=== PATIENT | female | born 1970 | race Caucasian/White ===

== ENCOUNTER 2019-09-05 10:27 | Observation (INO) | payer OTHER, SELFPAY ==
[2019-09-05] VITALS (11 sets, daily range): BP systolic 123–210; BP diastolic 60–107; PULSE 78–99; RESP 16–20; TEMP 36.1–37; O2SAT 97–100; BMI 30.5
--- NOTE | ~2019-09-05 | US_ITS ---
US right upper quadrant DATE: 09/06/2019 07:56 INDICATION: Right-sided abdominal pain TECHNIQUE: Right sided abdominal pain, nausea and vomiting COMPARISON: Real time imaging of the liver, pancreas, gallbladder, doppler FINDINGS: No hepatic, pancreatic space occupying mass lesion. Normal hepatopedal portal venous flow direction. No gallstones, gallbladder wall thickening or surrounding fluid. Negative sonographic Saleem's sign. The common bile duct measures 4 mm. IMPRESSION: No significant abnormality Reviewed, dictated and finalized at [facility]. Reviewed, dictated and finalized at location [facility]. IMPRESSION: No significant abnormality
--- NOTE | ~2019-09-05 | CT_ITS ---
EXAMINATION: CT abdomen pelvis w con DATE: 09/05/2019 13:16 INDICATION: Right lower quadrant abdominal pain. Nausea and vomiting. TECHNIQUE: Computed tomography (CT) of the abdomen and pelvis was performed with 100 mm Omnipaque 350 intravenous contrast. Automated exposure control and iterative reconstruction technique were employe d. The dose-length product was 560.07 mGy-cm. COMPARISON: None. FINDINGS: The visualized portions of the lung bases demonstrate minimal atelectasis. No pleural effus ion. The heart size is normal. No pericardial effusion. The liver, gallbladder, spleen, pancreas, adr enal glands, and left kidney are normal. There is an 8 mm cyst in right kidney. The bladder is disten ded. There is a 4.3 cm cyst in left ovary. There is diverticulosis of the colon without evidence of d iverticulitis. The appendix is normal. There are no dilated loops of bowel. There are no pathological ly enlarged lymph nodes. There is no free intraperitoneal fluid. There is mild lumbar spondylosis. IMPRESSION: 1. 4.3 cm cyst in left ovary, likely a follicular cyst. Reviewed, dictated and finalized at location [facility].
--- NOTE | 2019-09-05 10:56 | ECG_ITS ---
Measurements Intervals [place] Rate: 78 P: -5 DE: 132 QRS: 38 QRSD: 109 T: 51 QT: 416 QTc: 475 Interpretive Statements SINUS RHYTHM BASELINE WANDER- I, III, V3 NORMAL ECG Electronically Signed On 09-05-2019 14:08:00 CDT by Bg Faulkner D.O.
--- NOTE | 2019-09-05 10:56 | ED.NAVMDI ---
HPI - Nausea/Vomiting/Diarrhea General Chief complaint: Nausea/Vomiting/Diarrhea Stated complaint: vomiting, diarrhea Time Seen by Provider: 09/05/19 10:34 Source: patient Mode of arrival: ambulatory Limitations: no limitations History of Present Illness HPI Narrative: This patient is a 49 year old female who presents for evaluation of nausea, vomiting and abdominal pain. Patient states starting Thursday she developed nausea, vomiting, diarrhea and right lower abdominal pain. She states she felt fine on Thursday and Thursday. This morning at 1 30 am she developed nausea and vomiting again. She also reports epigastric pain that is dull ache that started with her vomiting. She reports this pain is worse with vomiting. She denies cough or shortness of breath. She reports a fever 100 F on Thursday. MD elicited complaint: nausea, vomiting and diarrhea Related Data Home Medications Medication Instructions Recorded Confirmed No Home Medications 09/05/19 09/05/19 Allergies Allergy/AdvReac Type Severity Reaction Status Date / Time quinine Allergy Unknown Verified 09/05/19 10:38 Review of Systems Review of Systems: All systems reviewed & are unremarkable except as noted in HPI and below Constitutional: Constitutional: Reports fever(s) Cardiovascular: Cardiovascular: Reports chest pain and Denies radiating jaw, neck or arm pain Respiratory: Respiratory: Denies cough, Denies dyspnea and Denies wheezing Gastrointestinal: Gastrointestinal: Reports abdominal pain, Reports diarrhea, Reports nausea and Reports vomiting Endocrine: Endocrine: Denies polydipsia and Denies polyuria PMFSH Past Medical History Medical History (Updated 09/05/19 @ 18:30 by Zenaida Narayanan MD) Diabetes mellitus Surgical History Surgical History (Updated 09/05/19 @ 10:58 by Zenaida Narayanan MD) H/O section Social History Social History Gender identity (if verbalized by the patient): Female Exam Narrative: Exam Narrative: GENERAL: Well-appearing, well-nourished, and in no acute distress. HEAD: Normocephalic, atraumatic EYES: PERRLA and EOMI, conjunctiva clear without discharge THROAT:Mucous membranes moist, Oropharynx normal without erythema, exudate, peritonsillar swelling or fluctuance NECK: Supple, without lymphadenopathy or mass RESPIRATORY: No respiratory distress, Airway patent, Respirations non-labored, Clear to auscultation without rales, rhonchi or wheeze HEART: Regular rate and rhythm. No murmur heard. Normal peripheral pulses. ABDOMEN: Soft, epigastric, RLQ tenderness, nondistended, normal active bowel sounds. No masses. No rebound or guarding, No organomegaly. EXTREMITIES: No edema, normal strength with full range of motion. SKIN: Warm, dry, normal color without rash NEURO: Alert and oriented x3. CN 2-12 grossly intact. No focal deficits. PSYCH: Normal mood and affect. Course Reevaluation(s) Reevaluation #1: PAtient reports she still has pain and she started vomiting again. She will be admitted for intractable nausea and vomiting. she has uncontrolled hypertension. She reports history of hypertension as well but she does not take her medications. Date: 09/05/19 Time: 16:15 Consultations Consultation #1: I discussed case with Elisa Olivo who accepts patient to IM U patient is not DKA. Date: 09/05/19 Time: 16:15 Vital Signs Vital signs: Vital Signs Temperature 97.9 F 09/05/19 10:34 Pulse Rate 83 09/05/19 10:34 Respiratory Rate 18 09/05/19 10:34 Blood Pressure 210/101 H 09/05/19 10:34 Pulse Oximetry 100 09/05/19 10:34 Temperature 97.9 F 09/05/19 10:34 Pulse Rate 78 09/05/19 17:54 Respiratory Rate 20 09/05/19 17:54 Blood Pressure 130/72 09/05/19 17:54 Pulse Oximetry 99 09/05/19 17:54 MDM - Nausea/Vomiting/Diarrhea Lab Data Attestation: I reviewed the patient's lab results. Result diagrams: 09/05/19 10:43 09/05/19 10:43
[2019-09-05 10:57] LABS: Basophils Absolute Auto 0.1 K/mm3 (0.0-0.1); Basophils Percent Auto 0.5 % (0.2-1.2); Hematocrit 47.2 % (37.0-47.0); Hemoglobin 15.8 g/dL (12.0-15.0); Immature Granulocyte Absolute 0.05 K/mm3 (0.00-0.031); Immature Granulocyte Percent A 0.5 % (0-0.5); Lymphocytes Percent Auto 7.4 % (18.3-44.2); Mean Corpuscular HGB Conc 33.5 g/dl (32-36); Mean Corpuscular Hemoglobin 30.4 pg (26-34); Mean Corpuscular Volume 90.9 fl (80-100); Mean Platelet Volume 11.3 fl (7.4-10.4); Monocytes Absolute Auto 0.2 K/mm3 (0.1-0.6); Monocytes Percent Auto 1.4 % (2.6-8.5); Neutrophils Absolute Auto 9.8 K/mm3 (1.3-6.7); Neutrophils Percent Auto 90.2 % (45.5-73.1); Platelet Count Result 224 k/mm3 (150-375); Red Blood Count 5.19 M/mm3 (4.2-5.4); Red Cell Distribution Width 12.5 % (11.5-14.5); White Blood Count 10.9 K/mm3 (4.5-10.0)
[2019-09-05 11:05] LABS: Glucose Point of Care 313 (65-105)
[2019-09-05 11:14] LABS: Alanine Aminotransferase 28 U/L (4-35); Albumin Level 4.3 g/dL (3.5-5.1); Alkaline Phosphatase 128 U/L (38-126); Aspartate Amino Transferase 28 U/L (14-36); Bilirubin,Total 0.5 mg/dL (0.2-1.3); Blood Urea Nitrogen 9 mg/dL (7-17); Calcium 8.9 mg/dL (8.4-10.2); Carbon Dioxide 24 mmol/L (22-30); Chloride 100 mmol/L (98-107); Estimated CRCL calculation 92 ml/min; Estimated Glomerular Filt Rate > 60; Glucose 338 mg/dL (65-105); Lipase 70 U/L (23-300); Potassium 3.7 mmol/L (3.4-5.0); Sodium 134 mmol/L (137-145)
[2019-09-05] MEDS: LACTATED RINGERS 1,000 ML 999 ML IV CONT (11:26)
[2019-09-05] MEDS: SODIUM CHLORIDE 0.9% IV 1,000 ML 999 ML IV CONT (11:26)
[2019-09-05] MEDS: PANTOPRAZOLE SODIUM IV 40 MG VIAL IV PUSH (11:27)
[2019-09-05] MEDS: ONDANSETRON INJ 4 MG/2 ML VIAL IV PUSH ×2 (11:27→17:11)
[2019-09-05 11:28] LABS: Troponin I < 0.012 ng/mL (0.000-0.034)
[2019-09-05 12:25] LABS: Add Urine Microscopic? YES; Appearance Urine Clear (Clear); Bilirubin Urine Negative (Negative); Blood Urine 1+ (Negative); Color Urine Yellow (Yellow); Glucose Urine UA 3+ mg/dL (Negative); Ketones Urine 1+ mg/dL (Negative); Leukocyte Esterase Ur Negative LEU/UL (Negative); Mucus Urine Rare /lpf; Nitrate Urine Negative (Negative); Protein Urine 2+ mg/dL (Negative); Squamous Epithelial Cell Urine Rare /hpf (Few); Urobilinogen Urine Negative mg/dL (<2.0); WBC Urine 0-3 /hpf
[2019-09-05 12:42] LABS: Specific Grav Ur 1.033 (1.001-1.035)
[2019-09-05] MEDS: cloNIDine HCL 0.1 MG TABLET 0.2 MG PO (13:46)
[2019-09-05] MEDS: BELLADONNA ALK/PHENOB ELIX 10 ML, MAG HYDROX/ALUMINUM HYD/SIMETH 30 ML, LIDOCAINE HCL 2... PO (15:22)
[2019-09-05] MEDS: MORPHINE SULFATE 4 MG/ML INJ IV PUSH (17:10)
[2019-09-05] MEDS: hydrALAZINE HCL 20 MG/ML VIAL 10 MG IV PUSH (17:11)
--- NOTE | 2019-09-05 18:28 | ADMGEN ---
This patient, Vangie King, was admitted to IMU Room 201-01. Patient/family oriented to hospital policies and general routines including ID bracelet, bed and alarms, visiting hours, pain management, procedures, bathroom and other care routines, personal items, smoking policy, room service/diet, and visiting hours. Valuables list has been completed. Information on how to activate the Rapid Response Team has been discussed. Patient/Family are encouraged to report perceived risks to care and to ask questions if they do not understand what they are told or what they should do.
[2019-09-05 18:34] LABS: Glucose Point of Care 295 (65-105)
--- NOTE | 2019-09-05 19:46 | PM.IMHP ---
H&P: HPI History of Present Illness Chief complaint: intractable n/v/epigastric abdominal pain/HTN Narrative: This is a 49 year old Diabetic female who presented to the hospital with a complaint of waking up this morning around 1:30 am with nausea and vomiting. She developed epigastric discomfort after multiple episodes of vomiting and also had diarrhea. She relates that her symptoms started Thursday night about 1-2 hours after she ate chicken salad. She began to have nausea, vomiting, diarrhea and RLQ abdominal pain. She had multiple episodes of vomiting Darrin night. 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 Her last meal was yesterday evening around 5 pm. She has had associated fever and dizziness but denies any other significant symptoms. She has no previous history of GI illnesses but does admit that she does not take any home medications for her diabetes or HTN. She has not been on any antibiotics recently. She has never had a colonoscopy. The patient was [facility] and was treated with multiple doses of zofran for her nausea and vomiting. The patient was admitted to the hospital for intractable nausea, vomiting and epigastric pain. On my encounter with the [facility] she is asymptomatic and has no complaints. She is asking for something to drink. ER provider has consulted GI, Dr. Weems. Review of Systems Review of Systems: All systems reviewed & are unremarkable except as noted in HPI and below PMFSH Past Medical History Medical History (Updated 09/06/19 @ 04:03 by Douglas Feliciano MD) Diabetes mellitus HTN (hypertension) with goal to be determined Surgical History Surgical History H/O section Social History Social History Years smoked: 34 Smoking status: Light tobacco smoker Tobacco type: cigarettes Alcohol intake: current Drinks per week: 2 Substance use: never Substance use type: does not use Gender identity (if verbalized by the patient): Female Spiritual care concerns: No Meds Home Medications and Allergies Home Medications Medication Instructions Recorded Confirmed Type No Home Medications 09/05/19 09/05/19 History Allergies Allergy/AdvReac Type Severity Reaction Status Date / Time quinine Allergy Unknown Verified 09/05/19 10:38 Vital Signs Vital Signs - 24 hr 09/05/19 10:34 09/05/19 12:08 09/05/19 12:39 Temperature 36.6 C Pulse Rate 83 87 99 Respiratory Rate 18 18 Blood Pressure 210/101 H 195/97 H 191/96 H Pulse Oximetry 100 99 09/05/19 13:47 09/05/19 15:22 09/05/19 17:13 Temperature Pulse Rate 89 85 90 Respiratory Rate 20 20 20 Blood Pressure 206/107 H 191/100 H 187/103 H Pulse Oximetry 100 99 99 09/05/19 17:54 09/05/19 19:10 Temperature 37.0 C Pulse Rate 78 94 Respiratory Rate 20 18 Blood Pressure 130/72 134/65 Pulse Oximetry 99 100 Exam Const: General: cooperative, no acute distress, alert and awake Nutritional Appearance: well nourished Orientation/consciousness: patient oriented x3 HENMT: Head: normal to inspection General nose exam: Normal external nose present Face and sinus: normal facial exam Mouth: Yes Normal oral and palatal mucosa present and Yes oropharynx normal Eyes: Pupils: Equal, round and reactive pupils present EOM: EOMs intact bilaterally Neck: Neck: supple and no JVD Thyroid: thyroid normal Lymphatic: lymphadenopathy not noted Resp: Effort & Inspection: normal respiratory effort Auscultation: clear to auscultation bilaterally Cardio: Rate: regular rate Rhythm: regular rhythm Heart sounds: no murmurs GI: Inspection: normal to inspection and non-distended GI Palp: Yes abdominal tenderness (Mild epigastric/RUQ tenderness w/ palpation+ ) Auscultation: Hypoactive bowel sounds present Rectal
[2019-09-05 20:46] LABS: Glucose Point of Care 267 (65-105)
[2019-09-05] MEDS: INSULIN ASPART (*BKC) 100 UNITS/ML SUB-Q (21:24)
[2019-09-05 23:54] LABS: Glucose Point of Care 253 (65-105)
[2019-09-06] VITALS (12 sets, daily range): BP systolic 118–155; BP diastolic 74–89; PULSE 70–85; RESP 16–20; TEMP 36.5–37.1; O2SAT 96–100
[2019-09-06 04:48] LABS: Basophils Percent Auto 0.2 % (0.2-1.2); Eosinophils Percent Auto 0.1 % (0-4.4); Hematocrit 42.3 % (37.0-47.0); Hemoglobin 14.4 g/dL (12.0-15.0); Immature Granulocyte Absolute 0.07 K/mm3 (0.00-0.031); Immature Granulocyte Percent A 0.5 % (0-0.5); Lymphocytes Absolute Auto 2.59 K/mm3 (0.9-3.2); Lymphocytes Percent Auto 17.6 % (18.3-44.2); Mean Corpuscular Hemoglobin 30.8 pg (26-34); Mean Corpuscular Volume 90.6 fl (80-100); Mean Platelet Volume 11.1 fl (7.4-10.4); Monocytes Absolute Auto 1.2 K/mm3 (0.1-0.6); Monocytes Percent Auto 8.2 % (2.6-8.5); Neutrophils Absolute Auto 10.8 K/mm3 (1.3-6.7); Neutrophils Percent Auto 73.4 % (45.5-73.1); Platelet Count Result 230 k/mm3 (150-375); Red Blood Count 4.67 M/mm3 (4.2-5.4); Red Cell Distribution Width 12.4 % (11.5-14.5); White Blood Count 14.7 K/mm3 (4.5-10.0)
[2019-09-06 05:00] LABS: Alanine Aminotransferase 21 U/L (4-35); Albumin Level 3.6 g/dL (3.5-5.1); Alkaline Phosphatase 89 U/L (38-126); Aspartate Amino Transferase 21 U/L (14-36); Bilirubin,Total 0.6 mg/dL (0.2-1.3); Blood Urea Nitrogen 16 mg/dL (7-17); Calcium 8.6 mg/dL (8.4-10.2); Carbon Dioxide 27 mmol/L (22-30); Chloride 103 mmol/L (98-107); Estimated CRCL calculation 70 ml/min; Estimated Glomerular Filt Rate > 60; Glucose 125 mg/dL (65-105); Lipase 107 U/L (23-300); Potassium 3.2 mmol/L (3.4-5.0); Sodium 137 mmol/L (137-145)
--- NOTE | 2019-09-06 08:26 | WPDGICN ---
Assessment and Plan Assessment and plan (1) Epigastric abdominal pain: Code(s): R10.13 - Epigastric pain Status: Acute Assessment and Plan: Epigastric pain resolved this morning. Appears to be related to her nausea vomiting. Plan is for acid suppression. Control of diabetes and hypertension advised. (2) Nausea & vomiting: Code(s): R11.2 - Nausea with vomiting, unspecified Status: Acute Assessment and Plan: Nausea and vomiting resolved this morning. She had 2 brief episodes over the last 4 days. I suspect this is related to poor control of blood pressure and poor control of diabetes mellitus with elevated glucose levels. Plan is to treat with Pepcid advance to bland diabetic diet is advised. EGD will be suggested if symptoms continue to recur. This can be performed electively as an outpatient (3) Nonadherence to medication: Code(s): Z91.14 - Patient's other noncompliance with medication regimen Status: Acute (4) Hypertension, uncontrolled: Code(s): I10 - Essential (primary) hypertension Status: Chronic (5) Diabetes mellitus: Code(s): E11.9 - Type 2 diabetes mellitus without complications Status: Acute GI Consult Note Consult date/time: 09/06/19 08:26 HPI: Vangie King is a 49 year old female Seen in evaluation at the request of the hospitalist service. Patient has an underlying history of diabetes and hypertension however is noncompliant with medication regime. She states she was in her usual state of health on Thursday in the afternoon developed nausea vomiting some abdominal pain. This improved and had no difficulties on Thursday or Thursday. after going to sleep on Thursday evening middle of the night last evening she developed vomiting once again associated with midepigastric pain. she present to the emergency room was given antiemetic agents with prompt improvement of this discomfort. In the emergency room she was found to be quite hypertensive with glucose greater than 300. This morning she has no discomfort is no longer nauseated no longer vomiting no abdominal pain. Her glucose level and high blood pressure is under better control. Review of Systems Review of Systems: All systems reviewed & are unremarkable except as noted in HPI and below PMFSH Past Medical History Medical History Diabetes mellitus HTN (hypertension) with goal to be determined Surgical History Surgical History H/O section Family History Family History Sibling Diabetes mellitus Social History Social History Years smoked: 34 Smoking status: Light tobacco smoker Tobacco type: cigarettes Alcohol intake: current Drinks per week: 2 Substance use: never Substance use type: does not use Gender identity (if verbalized by the patient): Female Spiritual care concerns: No Meds Home Medications and Allergies Home Medications Medication Instructions Recorded Confirmed Type No Home Medications 09/05/19 09/05/19 History Allergies Allergy/AdvReac Type Severity Reaction Status Date / Time quinine Allergy Unknown Verified 09/05/19 10:38 Vital Signs Vital Signs - 24 hr 09/05/19 10:34 09/05/19 12:08 09/05/19 12:39 Temperature 97.9 F Pulse Rate 83 87 99 Respiratory Rate 18 18 Blood Pressure 210/101 H 195/97 H 191/96 H Pulse Oximetry 100 99 09/05/19 13:47 09/05/19 15:22 09/05/19 17:13 Temperature Pulse Rate 89 85 90 Respiratory Rate 20 20 20 Blood Pressure 206/107 H 191/100 H 187/103 H Pulse Oximetry 100 99 99 09/05/19 17:54 09/05/19 19:10 09/05/19 20:00 Temperature 98.6 F Pulse Rate 78 94 94 Respiratory Rate 20 18 Blood Pressure 130/72 134/65 Pulse Oximetry 99 100 09/05/19 22:00
[2019-09-06 08:41] LABS: Glucose Point of Care 158 (65-105)
[2019-09-06 09:42] LABS: Hemoglobin A1C 9.2 % (<5.7)
[2019-09-06] MEDS: POTASSIUM CHLORIDE 20 MEQ PACKET (FOR LIQUID) 40 MEQ PO (10:20)
[2019-09-06] MEDS: FAMOTIDINE 20 MG TABLET PO ×2 (10:21→20:36)
[2019-09-06 11:30] LABS: Glucose Point of Care 238 (65-105)
--- NOTE | 2019-09-06 12:27 | PM.IMPN ---
Progress Note: A&P Assessment and Plan (1) Epigastric abdominal pain: Code(s): R10.13 - Epigastric pain Status: Acute Assessment and Plan: Improved. Etiology is unclear but gastroparesis, gastritis, or GERD is considered. CT a/p was unremarkable for etiology of symptoms. RUQ US shows no acute abnormalities. Lipase 107. She tolerated full liquids this morning Dr. Weems has been consulted and recommendations are appreciated. Continue Pepcid Advance to bland diet. Will downgrade to medical floor and continue to monitor (2) Intractable vomiting with nausea: Code(s): R11.2 - Nausea with vomiting, unspecified Status: Resolved Assessment and Plan: Improved. Slight nausea this morning but no vomiting. Continue antiemetics as needed Care as above (3) Hyperglycemia due to diabetes mellitus: Code(s): E11.65 - Type 2 diabetes mellitus with hyperglycemia Status: Acute Assessment and Plan: She has not been compliant with her oral hypoglycemics, and she has not taken any medications in approximately 1 year. A1c today was 9.2. No evidence for ketoacidosis. Uncontrolled hyperglycemia may be contributing to N/V. Continue accuchecks, SSI Coverage, and hypoglycemic protocol. Importance of medication compliance was discussed. Will plan to discharge with metformin 500 mg BID with review and uptitration by PCP. Will hold on Januvia as she has never taken this and will need to monitor blood sugars at home. (4) Hypokalemia: Code(s): E87.6 - Hypokalemia Status: Acute Assessment and Plan: Potassium mildly low today, likely secondary to vomiting and diarrhea. Mag is WNL. Replace potassium Continue to monitor closely and replace as needed. (5) Hypertension, uncontrolled: Code(s): I10 - Essential (primary) hypertension Status: Chronic Assessment and Plan: She has been noncompliant with lisinopril and hasn't taken in over 1 year. BP as high as 210/101 at presentation improved following clonidine and hydralazine and has been stable today. Restart lisinopril 5 mg Continue to monitor BP closely. (6) Nonadherence to medication: Code(s): Z91.14 - Patient's other noncompliance with medication regimen Status: Acute Assessment and Plan: She has not followed up with her PCP or taken her medications in >1 year. She did not identify any barriers to obtaining her medication and states she is able to afford her medicines. She doesn't really know why she stopped. I spoke with PCP office to obtain most medication list We discussed in detail the importance of taking her medications as prescribed, which she seemed to understand and be agreeable to. She will need to re-establish care with her PCP. (7) Tobacco dependence: Code(s): F17.200 - Nicotine dependence, unspecified, uncomplicated Status: Acute Assessment and Plan: Continue to encourage smoking cessation. She declined a nicotine patch at this time. Subjective Date/time seen: 09/06/19 12:27 Interval history: Date of service: 09/06/2019 She reports she is feeling better now. Her epigastric pain has improved. She felt a little nauseous this morning but has not had any further episodes of vomiting. She has not had anymore episodes of diarrhea. She has been passing gas and belching today but has not had a BM. She denies headaches, confusion, dizziness, lightheadedness, weakness, SOB, cough, chest pain, fever, or chills. Review of Systems Review of Systems: Narrative: A 12 point review of systems was reviewed with pertinent positives and negatives as per HPI. Exam Narrative: Exam Narrative: Ms. King is examined alone today. She is a well nourished 49 year old female who is lying supine in bed. She appears comfortable and is in NARD. HR 85, BP 118/74, RR 18, T 98.0, 97% on room air Neuro: awake, alert and oriented x4, speech cl
[2019-09-06] MEDS: INSULIN ASPART (*BKC) 100 UNITS/ML SUB-Q ×2 (13:17)
[2019-09-06 16:40] LABS: Glucose Point of Care 151 (65-105)
--- NOTE | 2019-09-06 17:07 | PCDIET ---
Nutrition Consult Complete: Pt current nutrition is DBCC. Nutrition recommendation: Agree Last recorded weight is 74.2 kg. Labs Reviewed:A1c 9.2 Additional Notes: Pt with uncontrolled DM. On an DBCC diet. PO intake at 100%. Still c/o GI pain today. Pt follows diabetic plan at home she states. We reviewed carbs and protein sources and focusing on having protein at all meals with up to 45g of carbs at each meals. Discussed my plate method of meal planning with DM to focus on protein and non starchy veggies. Handouts with meal plans provided. We will follow every seven days.
--- NOTE | 2019-09-06 17:30 | PC.NURSE ---
This patient, Vangie King, was received from U on 09/06/19 at 1730. Personal belongings list checked and signed. Patient/family oriented to unit policies and routines
--- NOTE | 2019-09-06 17:30 | PC.NURSE ---
Transferred pt to room 257 via bed as ordered- med/surg-belongings with pt- report given to Douglas LAWSON-
[2019-09-06] MEDS: ACETAMINOPHEN 325 MG TABLET 650 MG PO (20:36)
[2019-09-07] VITALS: BP 155/83; PULSE 66; RESP 20; TEMP 36.6; O2SAT 98
[2019-09-07 00:03] LABS: Glucose Point of Care 262 (65-105)
[2019-09-07 04:00] VITALS: BP 153/84; PULSE 63; RESP 20; TEMP 36.4; O2SAT 98
[2019-09-07 05:13] LABS: Hematocrit 42.4 % (37.0-47.0); Hemoglobin 14.3 g/dL (12.0-15.0); Mean Corpuscular HGB Conc 33.7 g/dl (32-36); Mean Platelet Volume 10.9 fl (7.4-10.4); Platelet Count Result 200 k/mm3 (150-375); Red Blood Count 4.61 M/mm3 (4.2-5.4); Red Cell Distribution Width 12.5 % (11.5-14.5); White Blood Count 7.8 K/mm3 (4.5-10.0)
[2019-09-07 05:34] LABS: Blood Urea Nitrogen 14 mg/dL (7-17); Calcium 8.2 mg/dL (8.4-10.2); Carbon Dioxide 26 mmol/L (22-30); Chloride 103 mmol/L (98-107); Estimated CRCL calculation 91 ml/min; Estimated Glomerular Filt Rate > 60; Glucose 194 mg/dL (65-105); Potassium 3.8 mmol/L (3.4-5.0); Sodium 134 mmol/L (137-145)
[2019-09-07 07:52] LABS: Glucose Point of Care 188 (65-105)
[2019-09-07] MEDS: FAMOTIDINE 20 MG TABLET PO (08:51)
--- NOTE | 2019-09-07 09:45 | WPDGIPROGNO ---
Progress Note: A&P Additional Plan Patient denies any ongoing nausea. Tolerating diet. No additional abdominal pain reported. Physical exam reveals patient to be alert. Vital signs stable. Lungs are clear. Heart without murmur. Abdomen bowel sounds are present soft nontender with no organomegaly. Impression 1. Resolved abdominal pain and nausea. Likely related to poor control of diabetes and hypertension. No additional GI with GI workup unless symptoms recur Subjective Date/time seen: 09/07/19 09:45 Objective Data Vital Signs Vital Signs: Vital Signs - 24 hr 09/06/19 10:00 09/06/19 11:33 09/06/19 12:00 Temperature 98.8 F Pulse Rate 70 77 71 Respiratory Rate 16 Blood Pressure 135/80 Pulse Oximetry 99 09/06/19 14:00 09/06/19 16:00 09/06/19 20:00 Temperature 98.6 F 98.1 F Pulse Rate 70 73 71 Respiratory Rate 18 20 Blood Pressure 148/87 H 155/89 H Pulse Oximetry 99 96 09/07/19 00:00 09/07/19 04:00 Temperature 98 F 97.5 F L Pulse Rate 66 63 Respiratory Rate 20 20 Blood Pressure 155/83 H 153/84 H Pulse Oximetry 98 98 Intake/Output Intake/Output: Intake & Output 09/04/19 09/05/19 09/06/19 09/07/19 23:59 23:59 23:59 23:59 Intake Total 1999 640 630 Output Total 200 Balance 1999 440 630 Meds/Results Medications: Active Medications Generic Name Dose Route Start Last Admin Trade Name Freq PRN Reason Stop Dose Admin Acetaminophen 650 mg 09/06/19 18:53 09/06/19 20:36 Tylenol Tablet PO 650 mg Q6H PRN Administration Mild Pain (1-3) or Fever Dextrose 12.5 gm 09/05/19 19:53 Dextrose 50% Syringe IV PUSH PRN PRN Hypoglycemia Protocol Famotidine 20 mg 09/06/19 09:00 09/07/19 08:51 Pepcid PO 20 mg Q12HR DANK Administration Glucagon 1 mg 09/05/19 19:53 Glucagon For Inj IM PRN PRN Hypoglycemia Protocol Hydralazine HCl 10 mg 09/05/19 16:36 Apresoline Hcl Inj IV PUSH Q8H PRN Blood Pressure - High Dextrose 1,000 mls @ 100 mls/hr 09/05/19 19:53 Dextrose 5% 1,000 Ml IVPB PRN PRN Hypoglycemia Protocol Insulin Aspart 2 - 5 units 09/06/19 17:00 09/07/19 07:56 Novolog SUB-Q Not Given ACINSULIN DANK Protocol Morphine Sulfate 4 mg 09/05/19 16:31 Morphine Sulfate Inj IV PUSH Q2H PRN Pain Rated 7-10 Ondansetron HCl 4 mg 09/05/19 16:31 Zofran Inj IV PUSH Q4H PRN Nausea Radiology Results: ITS Impressions Abdomen/Pelvis CT 09/05/19 13:19 IMPRESSION: 1. 4.3 cm cyst in left ovary, likely a follicular cyst. Upper Quadrant Ultrasound 09/06/19 08:05 IMPRESSION: No significant abnormality Labs Labs: Laboratory Results - last 24 hr 09/06/19 09/06/19 09/06/19 11:28 16:38 20:50 WBC RBC Hgb Hct MCV MCH MCHC RDW Plt Count MPV Sodium Potassium Chloride Carbon Dioxide BUN Creatinine Estim Creat Clear Calc Estimated GFR Glucose POC Capillary Glucose 238 H 151 H 262 H Calcium 09/07/19 09/07/19 09/07/19 05:01 05:01 07:48 WBC 7.8 RBC 4.61 Hgb 14.3 Hct 42.4 MCV 92.0 MCH 31.0 MCHC 33.7 RDW 12.5 Plt Count 200 MPV 10.9 H Sodium 134 L Potassium 3.8 Chloride 103 Carbon Dioxide 26 BUN 14 Creatinine 0.60 L Estim Creat Clear Calc 91 Estimated GFR > 60 Glucose 194 H POC Capillary Glucose 188 H Calcium 8.2 L
[2019-09-07 10:00] VITALS: BP 145/77; PULSE 72; RESP 14; TEMP 36.4; O2SAT 99
--- NOTE | 2019-09-07 11:12 | PM.DS ---
DS: Admitting Diagnosis Admitting Diagnosis Admitting Diagnosis: Epigastric pain DS: Discharge Diagnosis Discharge Diagnosis (1) Epigastric abdominal pain: Code(s): R10.13 - Epigastric pain Status: Acute Assessment and Plan: Improved. Etiology is unclear but gastroparesis, gastritis, or GERD was considered. CT a/p was unremarkable for etiology of symptoms. RUQ US showed no acute abnormalities. Lipase was WNL. She was able to advance to a bland diet without any issues. She was seen in consultation by gastroenterology. She will begin acid suppression therapy with Pepcid daily and may follow-up for outpatient elective EGD with Dr. Weems if symptoms persist. Improved diabetic control was discussed and believe this will help her symptoms. We discussed continuing a bland diet and advancing as tolerated. (2) Intractable vomiting with nausea: Code(s): R11.2 - Nausea with vomiting, unspecified Status: Resolved Assessment and Plan: Nausea and vomiting resolved, likely secondary to above. (3) Hyperglycemia due to diabetes mellitus: Code(s): E11.65 - Type 2 diabetes mellitus with hyperglycemia Status: Acute Assessment and Plan: She has not been compliant with her oral hypoglycemics, and she has not taken any medications in >1 year. Current A1c was 9.2 (09/06/2019). There was no evidence for ketoacidosis. Uncontrolled hyperglycemia may have been contributing to N/V. Glucose was monitored closely and she was covered with sliding scale insulin. She had previously been on metformin that she stopped taking, but she did tolerate this medication well. She had been prescribed Januvia but has never taken this medication. We will start her on metformin 500 mg b.i.d. with review and uptitration by PCP. Will hold on Januvia as she has never taken this. Recommended that she monitor her blood sugars ACHS at home. She was given a prescription for glucometer and test strips. (4) Hypokalemia: Code(s): E87.6 - Hypokalemia Status: Acute Assessment and Plan: Potassium was mildly low, likely secondary to vomiting and diarrhea. Mag was WNL. Potassium was replaced monitored. Levels stabilized. (5) Hypertension, uncontrolled: Code(s): I10 - Essential (primary) hypertension Status: Chronic Assessment and Plan: She had not taken her antihypertensives in over 1 year. BP as high as 210/101 at presentation improved following clonidine and hydralazine in the ED. Blood sugars had improved following. She was restarted on lisinopril 5 mg daily. (6) Nonadherence to medication: Code(s): Z91.14 - Patient's other noncompliance with medication regimen Status: Acute Assessment and Plan: She has not followed up with her PCP or taken her medications in >1 year. She did not identify any barriers to obtaining her medication and states she is able to afford her medicines. She doesn't really know why she stopped. I spoke with her PCP office on 09/05/2021 obtain a recent medication list. We have restarted most of her medications and I reiterated to her the importance of compliance to these medications. She seems motivated to begin taking her medications and follow-up. She will need to reestablish care with her PCP and will be calling for an appointment. (7) Tobacco dependence: Code(s): F17.200 - Nicotine dependence, unspecified, uncomplicated Status: Acute Assessment and Plan: I counseled her on smoking cessation for 6 minutes. She smokes 4-5 cigarettes per day, however she states that she is interested in quitting smoking, especially since she has not smoked in several days while she has been hospitalized and wants to try to quit cold turkey. She will follow-up with her PCP if she needs any assistance. She declined a nicotine patch during her stay. DS: Summary Hospital Course Reason for hospitalization: Nausea/v
[2019-09-07] MEDS: ATORVASTATIN 10 MG TABLET PO (11:16)
[2019-09-07] MEDS: ASPIRIN 81 MG ENTERIC TABLET PO (11:16)
[2019-09-07] MEDS: lisinopriL 5 MG TABLET PO (11:16)
[2019-09-07 11:44] LABS: Glucose Point of Care 245 (65-105)
[2019-09-07] MEDS: INSULIN ASPART (*BKC) 100 UNITS/ML SUB-Q (11:56)
== END 2019-09-07 12:34 | disposition home or self-care (01) ==
LOC: ANHED 16:33 → ANHIMU 17:39 → ANH2MED 09-06 18:12 → ANHIMU 09-09 13:49
PROVIDERS: Physician Assistant; Admitting Provider Internal Medicine; Emergency Provider General Practice; PCP Registered Nurse; Visit Provider Internal Medicine
DX: R10.13 Epigastric pain (principal); E11.65 Type 2 diabetes mellitus with hyperglycemia; E87.6 Hypokalemia; I10 Essential (primary) hypertension; F17.210 Nicotine dependence, cigarettes, uncomplicated; N83.202 Unspecified ovarian cyst, left side; Z91.14 Patient's other noncompliance with medication regimen
CPT/HCPCS: 36415; 74177; 76705; 80048; 80053; 81001; 81025; 83036; 83690; 83735; 84484; 85025; 85027; 93005; 96361; 96374; 96375; 96376; 99285; A9270; C9113; G0378; J0360; J1815; J2270; J2405; J7030; J7120; Q9967

== ENCOUNTER 2021-09-25 12:38 | Emergency (ER) | payer OTHER, SELFPAY ==
[2021-09-25 12:47] VITALS: BP 117/76; PULSE 66; RESP 16; TEMP 36.3; O2SAT 100
--- NOTE | 2021-09-25 12:53 | ED.URI ---
HPI - URI/Sore Throat General Chief Complaint: Upper Respiratory Infection Stated Complaint: Cough, fever, chills Time Seen by Provider: 09/25/21 12:53 Source: patient and RN notes reviewed Mode of arrival: ambulatory Limitations: no limitations History of Present Illness HPI Narrative: 51 y/o female presented for c/o sinus pressure and congestion for 4 days, started with dry cough yesterday. Cough worse at night. Endorses associated fatigue, body aches, and headache. States symptoms are the same as when she had covid 2 years ago. Not taking anything for symptoms. Has taken 2 negative covid tests, last one yesterday. Denies sick contacts. Denies chest pain, shortness of breath, wheezing or fever. MD elicited complaint: cough Related Data Home Medications Medication Instructions Recorded Confirmed atenolol 50 mg-chlorthalidone 25 1 tablet DAILY 09/25/21 09/25/21 mg tablet Allergies Allergy/AdvReac Type Severity Reaction Status Date / Time quinine Allergy Unknown Verified 09/25/21 12:55 Review of Systems Review of Systems: CONSTITUTIONAL: Endorses malaise, chills EYES: Denies visual changes, redness, or discharge ENT: Reports rhinorrhea, congestion, sinus pain, otalgia, sore throat CARDIOVASCULAR: Denies chest pain, palpitations, edema RESPIRATORY: Reports cough, post nasal drainage. Denies dyspnea GASTROINTESTINAL: Denies abdominal pain, nausea, vomiting, diarrhea SKIN: Denies rash or itching MUSCULOSKELETAL: Endorses myalgia PMFSH Past Medical History Medical History Diabetes mellitus HTN (hypertension) with goal to be determined Surgical History Surgical History H/O section Family History Family History Sibling Diabetes mellitus Social History Social History Years smoked: 34 Smoking status: Light tobacco smoker Tobacco type: cigarettes Alcohol intake: current Drinks per week: 2 Substance use: never Substance use type: does not use Gender identity (if verbalized by the patient): Female Spiritual care concerns: No Exam Narrative: GENERAL: well-appearing, nontoxic EYES: conjunctivae clear ENT: Mucous membranes moist. TMs pearly reno with dull light reflex bilaterally; no tragal tenderness. Oropharynx erythematous without lesions or exudate, no drooling, no hoarseness, no trismus, uvula midline. NECK: Supple. No lymphadenopathy CHEST: Clear to auscultation, breath sounds equal. No wheezing, rhonchi, rales, or stridor. No respiratory distress, speaks in full sentences. HEART: Regular rate and rhythm. No murmur heard. SKIN: Warm, dry, no rash. NEURO: Alert and oriented x3. PSYCH: Normal mood and affect Course Course Emergency Course: Patient is aware of diagnosis, understands and agrees to treatment plan. Anticipatory guidance given. Patient agrees to follow-up as directed and is aware of reasons to seek care at the emergency department. Portions of this record may have been created with voice recognition software Level of Care: Express Care Visit Vital Signs Vital signs: Vital Signs Temperature 97.3 F L 09/25/21 12:47 Pulse Rate 66 09/25/21 12:47 Respiratory Rate 16 09/25/21 12:47 Blood Pressure 117/76 09/25/21 12:47 Pulse Oximetry 100 09/25/21 12:47 Oxygen Delivery Room Air 09/25/21 12:47 Temperature 97.3 F L 09/25/21 12:47 Pulse Rate 66 09/25/21 12:47 Respiratory Rate 16 09/25/21 12:47 Blood Pressure 117/76 09/25/21 12:47 Pulse Oximetry 100 09/25/21 12:47 Oxygen Delivery Room Air 09/25/21 12:57 reviewed MDM - URI/Sore Throat MDM Narrative Medical decision making narrative: COVID PCR sent. Advised supportive measures and signs/symptoms to go to the ER. Pt is appropriate for outpt t
--- NOTE | 2021-09-25 13:09 | PC.NURSE ---
Covid PCR collected.
[2021-09-25 19:58] LABS: SARS-CoV-2 RNA PCR Positive
== END 2021-09-25 13:13 | disposition home or self-care (01) ==
PROVIDERS: Emergency Provider Nurse Practitioner Family
DX: U07.1 COVID-19 (principal); E11.9 Type 2 diabetes mellitus without complications; I10 Essential (primary) hypertension; F17.210 Nicotine dependence, cigarettes, uncomplicated
CPT/HCPCS: 99213; C9803; G0463; U0003; U0005

== ENCOUNTER 2021-11-13 19:09 | Emergency (ER) | payer OTHER, SELFPAY ==
--- NOTE | 2021-11-13 19:18 | ED.NAVMDI ---
HPI - Nausea/Vomiting/Diarrhea General Chief complaint: Nausea/Vomiting/Diarrhea Stated complaint: vomiting/diarrhea Time Seen by Provider: 11/13/21 19:18 Source: patient Mode of arrival: ambulatory Limitations: no limitations History of Present Illness HPI Narrative: Ms. King is a 51-year-old female patient presenting to the clinic today with complaints of mid epigastric abdominal pain, nausea, vomiting, and diarrhea x 1 day. She reports she has been having the symptoms since 240 this morning. States she has not even been able to keep down water. She denies any fever but has had some chills and fatigue. She is very pale in the triage room Related Data Home Medications Medication Instructions Recorded Confirmed atenolol 50 mg-chlorthalidone 25 1 tablet DAILY 09/25/21 11/13/21 mg tablet Allergies Allergy/AdvReac Type Severity Reaction Status Date / Time quinine Allergy Unknown Verified 11/13/21 19:15 Review of Systems Review of Systems: Pertinent positives per HPI. Patient denies any fever, chills, rash, headache, visual changes, dizziness, cough, runny nose, sore throat, shortness of breath, chest pain, palpitations, constipation, abdominal pain, or any urinary issues. PMF Past Medical History Medical History Diabetes mellitus HTN (hypertension) with goal to be determined Surgical History Surgical History H/O section Family History Family History Sibling Diabetes mellitus Social History Social History Years smoked: 34 Smoking status: Light tobacco smoker Tobacco type: cigarettes Alcohol intake: current Drinks per week: 2 Substance use: never Substance use type: does not use Gender identity (if verbalized by the patient): Female Spiritual care concerns: No Comments At the time of my signature, I reviewed and agree with the nursing past medical, surgical, social, and family history. There is no relevant family history pertinent to the patient complaint. Exam Narrative: General: Well-developed, well nourished, in no apparent distress Head: Normocephalic, atraumatic, pale complexion Eyes: Pupils equally round and reactive to light bilaterally, EOM intact, sclera and conjunctive clear, no discharge, lids normal Ears: TMs intact and clear, ear canals clear, no drainage, grossly hearing normal. Nose: Nares patent, no discharge, no inflammation, no sinus tenderness. Mouth: Oropharynx without lesions or masses, good dentition, MM dry. Neck: Supple, trachea midline, no enlargement of anterior or posterior cervical nodes, no thyroid masses or goiter palpable. Cardio: Regular rate and rhythm, s1 and s2 normal, no murmur appreciated. Resp: Clear to auscultation bilaterally anteriorly and posteriorly, no rhonchi, rales, wheezing or rubs Abdomen: Soft, pliable, bowel sounds present in all quadrants, midepigastric tenderness to palpation, no organomegly, no CVAT tenderness. Course Course Emergency Course: Portions of this record may have been created with voice recognition software. Level of Care: Express Care Visit Vital Signs Vital signs: Vital signs reviewed Transfer Transfered to: [facility] Transportation: Other (Private car) Transfer rationale: Dehydration Accepting physician: Amelia Bacon Transfer comments: Transferred via private car- is driving MDM - Nausea/Vomiting/Diarrhea MDM Narrative Medical decision making narrative: At the time of visit patient is resting comfortably on the exam table. Patient has been having nausea, vomiting, diarrhea and midepigastric abdominal pain since 240 this morning. She states she is unable to keep any fluids down. She is very pale and lethargic appearing. Muc
[2021-11-13 19:20] VITALS: BP 144/95; PULSE 91; RESP 16; TEMP 36.3; O2SAT 99
== END 2021-11-13 19:27 | disposition short-term general hospital (02) ==
PROVIDERS: Emergency Provider Nurse Practitioner Family
DX: E86.0 Dehydration (principal); R11.2 Nausea with vomiting, unspecified; R23.1 Pallor; F17.210 Nicotine dependence, cigarettes, uncomplicated; E11.9 Type 2 diabetes mellitus without complications; I10 Essential (primary) hypertension
CPT/HCPCS: 99212; G0463

== ENCOUNTER 2021-11-13 19:40 | Emergency (ER) | payer OTHER, SELFPAY ==
[2021-11-13] VITALS (31 sets, daily range): BP systolic 143–170; BP diastolic 61–91; PULSE 92; RESP 20; TEMP 36.6; O2SAT 99–100
--- NOTE | ~2021-11-13 | CT_ITS ---
EXAMINATION: CT abdomen pelvis w con DATE: 11/13/2021 21:53 INDICATION: Epigastric pain, nausea, vomiting and diarrhea. TECHNIQUE: Computed tomography (CT) of the abdomen and pelvis was performed with 100 mL Omnipaque-350 intravenous contrast. Automated exposure control and iterative reconstruction technique were employe d. The dose-length product was 396.53 mGy-cm. COMPARISON: 09/05/2019 FINDINGS: Lung bases are clear. Heart size is normal. No pericardial or pleural effusion. Liver, gallbladder, s pleen, pancreas, bilateral adrenal glands and left kidney are normal. 7 mm right renal cyst. There is mild colonic diverticulosis with a sigmoid predominance. There is no adjacent inflammatory change t o suggest diverticulitis. Small bowel and appendix are normal. Small metallic foreign body along the wall of the cecum. 3.8 cm left ovarian cyst which exerts mass effect upon the left side of the dome of the normal bladder. 1.7 cm right ovarian cyst. Anteverted uterus is normal.. Mild to moderate spon dylosis in the lower thoracic spine. IMPRESSION: 1. No acute intra-abdominal/pelvic process. 2. 3.8 cm left and 1.7 cm right ovarian cyst. Reviewed, dictated and finalized at location A.
[2021-11-13 20:11] LABS: Basophils Percent Auto 0.2 % (0.2-1.2); Hematocrit 43.5 % (37.0-47.0); Hemoglobin 14.9 g/dL (12.0-15.0); Immature Granulocyte Absolute 0.06 K/mm3 (0.00-0.031); Immature Granulocyte Percent A 0.5 % (0-0.5); Mean Corpuscular HGB Conc 34.3 g/dl (32-36); Mean Corpuscular Hemoglobin 29.9 pg (26-34); Mean Corpuscular Volume 87.2 fl (80-100); Mean Platelet Volume 11.2 fl (7.4-10.4); Monocytes Absolute Auto 0.2 K/mm3 (0.1-0.6); Monocytes Percent Auto 1.4 % (2.6-8.5); Neutrophils Absolute Auto 11.3 K/mm3 (1.3-6.7); Neutrophils Percent Auto 89.9 % (45.5-73.1); Platelet Count Result 247 k/mm3 (150-375); Red Blood Count 4.99 M/mm3 (4.2-5.4); Red Cell Distribution Width 12.3 % (11.5-14.5); White Blood Count 12.6 K/mm3 (4.5-10.0)
--- NOTE | 2021-11-13 20:12 | ED.ABDPAIN ---
HPI - Abdominal Pain General Chief Complaint: Abdominal Pain <OFELIA Olivera Last Filed: 11/14/21 01:01> Stated Complaint: ABDOMINAL PAIN <OFELIA Olivera Last Filed: 11/14/21 01:01> Time Seen by Provider: 11/13/21 19:51 <OFELIA Olivera Last Filed: 11/14/21 01:01> Source: patient and old records reviewed <OFELIA Olivera Last Filed: 11/14/21 01:01> Mode of arrival: ambulatory <OFELIA Olivera Last Filed: 11/14/21 01:01> Limitations: no limitations <OFELIA Olivera Last Filed: 11/14/21 01:01> History of Present Illness HPI narrative: Patient is a 51-year-old female who presents the ED with report of nausea, vomiting, diarrhea. Patient reports she developed nausea and vomiting around 2:40 AM this morning. She has since developed diarrhea as well. No blood in vomit or stool. She also reports having epigastric abdominal pain and chills, but denies any fever, dysuria, hematuria, cough, cold symptoms. Patient was seen in urgent care prior to arrival and sent here for IV fluid hydration. Patient ate out at a restaurant last night. <OFELIA Olivera Last Filed: 11/14/21 01:01> Related Data Home Medications: Home Medications Medication Instructions Recorded Confirmed atenolol 50 mg-chlorthalidone 25 1 tablet DAILY 09/25/21 11/13/21 mg tablet <OFELIA Olivera Last Filed: 11/14/21 01:01> Allergies/Adverse Reactions: Allergies Allergy/AdvReac Type Severity Reaction Status Date / Time quinine Allergy Unknown Verified 11/13/21 19:15 <OFELIA Olivera Last Filed: 11/14/21 01:01> Review of Systems Review of Systems: CONSTITUTIONAL: Denies fever, chills, or sweats. ENT: Denies rhinorrhea, congestion, sore throat. CARDIOVASCULAR: Denies chest pain. RESPIRATORY: Denies cough or dyspnea. GASTROINTESTINAL: Reports epigastric abdominal pain, nausea, vomiting, and diarrhea. Denies rectal bleeding, hematemesis. GENITOURINARY: Denies dysuria or hematuria. <Amelia Mcqueen PA-C - Last Filed: 11/14/21 01:01> All systems reviewed & are unremarkable except as noted in HPI and below <Amelia Mcqueen PA-C - Last Filed: 11/14/21 01:01> PMFSH Past Medical History Medical History: Medical History (Updated 11/14/21 @ 00:01 by Amelia Mcqueen PA-C) Diabetes mellitus HTN (hypertension) with goal to be determined <Amelia Mcqueen PA-C - Last Filed: 11/14/21 01:01> Surgical History Surgical History: Surgical History H/O section <Amelia Mcqueen PA-C - Last Filed: 11/14/21 01:01> Family History Family History: Family History Sibling Diabetes mellitus <Amelia Mcqueen PA-C - Last Filed: 11/14/21 01:01> Social History Social History: Social History Years smoked: 34 Smoking status: Light tobacco smoker Tobacco type: cigarettes Alcohol intake: current Drinks per week: 2 Substance use: never Substance use type: does not use Gender identity (if verbalized by the patient): Female Spiritual care concerns: No <Amelia Mcqueen PA-C - Last Filed: 11/14/21 01:01> Exam Narrative: GENERAL: Mildly ill appearing, well-nourished, non-toxic, in no acute distress. HEAD: Normocephalic, atraumatic. EYES: PERRL/EOMI, conjunctivae clear bilaterally. NOSE: Normal, no drainage. THROAT: Pharynx clear, no exudate. MMs dry and tacky. NECK: Supple. No adenopathy, no masses. RESPIRATORY: Airway patent, respirations nonlabored. Clear to auscultation bilaterally, no rales, rhonchi, wheezing. CARDIOVASCULAR: Regular rate and rhythm without murmurs, rubs, or gallops. Peripheral pulses 2+ and equal bilaterally. ABDOMIN
[2021-11-13] MEDS: SODIUM CHLORIDE 0.9% IV 1,000 ML 999 ML IV CONT ×2 (20:20→21:57)
[2021-11-13] MEDS: ONDANSETRON INJ 4 MG/2 ML VIAL IV PUSH (20:20)
[2021-11-13 20:38] LABS: Appearance Urine Slightly Cloudy (Clear); Bilirubin Urine 2+ (Negative); Blood Urine Trace-lysed (Negative); Color Urine Yellow (Yellow); Glucose Urine UA 2+ mg/dL (Negative); Ketones Urine 2+ mg/dL (Negative); Leukocyte Esterase Ur Negative LEU/UL (Negative); Nitrate Urine Negative (Negative); Protein Urine 2+ mg/dL (Negative); Specific Grav Ur >= 1.030 (1.001-1.035); Urobilinogen Urine 0.2 mg/dL (<2.0)
--- NOTE | 2021-11-13 20:39 | PC.NURSE ---
Unable to chart bedside on worklist. Completed with negative results.
[2021-11-13 20:44] LABS: Bacteria Urine Trace /hpf; Hyaline Casts Urine 15-19 /lpf; Mucus Urine Rare /lpf; RBC Urine 0-2 /hpf (0-2); Squamous Epithelial Cell Urine Few /hpf (Few); WBC Urine 0-3 /hpf
[2021-11-13 20:48] LABS: Add Urine Microscopic? YES
[2021-11-13 21:19] LABS: Alanine Aminotransferase 28 U/L (6-35); Albumin Level 4.2 g/dL (3.5-5.1); Alkaline Phosphatase 74 U/L (38-126); Anion Gap 16 mmol/L (8-16); Aspartate Amino Transferase 27 U/L (14-36); Bilirubin,Total 0.5 mg/dL (0.2-1.3); Blood Urea Nitrogen 29 mg/dL (7-17); Carbon Dioxide 24 mmol/L (22-30); Chloride 98 mmol/L (98-107); Estimated CRCL calculation 43 ml/min; Estimated Glomerular Filt Rate 44; Glucose 271 mg/dL (65-110); Lipase 93 U/L (23-300); Potassium 3.5 mmol/L (3.4-5.0); Sodium 138 mmol/L (137-145)
--- NOTE | 2021-11-13 21:50 | PC.NURSE ---
Patient off unit to CT.
[2021-11-13] MEDS: METOCLOPRAMIDE HCL INJ 10 MG/2 ML VIAL IV PUSH (23:00)
== END 2021-11-14 00:47 | disposition home or self-care (01) ==
PROVIDERS: Emergency Medicine; Emergency Provider Emergency Medicine; PCP Registered Nurse
DX: E86.0 Dehydration (principal); N17.9 Acute kidney failure, unspecified; F17.210 Nicotine dependence, cigarettes, uncomplicated; E11.9 Type 2 diabetes mellitus without complications; I10 Essential (primary) hypertension
CPT/HCPCS: 36415; 74177; 80053; 81001; 81025; 83690; 85025; 96361; 96374; 96375; 99284; J0131; J2405; J2765; J7030; Q9967

== ENCOUNTER 2021-11-15 20:06 | Emergency (ER) | payer OTHER, SELFPAY ==
[2021-11-15] VITALS (15 sets, daily range): BP systolic 168–195; BP diastolic 84–103; PULSE 82–90; RESP 16–22; TEMP 36.8; O2SAT 98–100
[2021-11-15 20:56] LABS: Basophils Percent Auto 0.3 % (0.2-1.2); Hematocrit 42.4 % (37.0-47.0); Hemoglobin 14.6 g/dL (12.0-15.0); Immature Granulocyte Absolute 0.03 K/mm3 (0.00-0.031); Immature Granulocyte Percent A 0.3 % (0-0.5); Lymphocytes Absolute Auto 2.08 K/mm3 (0.9-3.2); Lymphocytes Percent Auto 17.3 % (18.3-44.2); Mean Corpuscular HGB Conc 34.4 g/dl (32-36); Mean Corpuscular Volume 87.1 fl (80-100); Mean Platelet Volume 10.9 fl (7.4-10.4); Monocytes Absolute Auto 0.7 K/mm3 (0.1-0.6); Monocytes Percent Auto 5.8 % (2.6-8.5); Neutrophils Absolute Auto 9.2 K/mm3 (1.3-6.7); Neutrophils Percent Auto 76.3 % (45.5-73.1); Platelet Count Result 240 k/mm3 (150-375); Red Blood Count 4.87 M/mm3 (4.2-5.4); Red Cell Distribution Width 12.4 % (11.5-14.5)
[2021-11-15 21:07] LABS: Alanine Aminotransferase 27 U/L (6-35); Albumin Level 4.5 g/dL (3.5-5.1); Alkaline Phosphatase 77 U/L (38-126); Anion Gap 13 mmol/L (8-16); Aspartate Amino Transferase 33 U/L (14-36); Bilirubin,Total 0.6 mg/dL (0.2-1.3); Blood Urea Nitrogen 17 mg/dL (7-17); Calcium 9.3 mg/dL (8.4-10.2); Carbon Dioxide 28 mmol/L (22-30); Chloride 94 mmol/L (98-107); Estimated Glomerular Filt Rate 59; Glucose 185 mg/dL (65-110); Lipase 189 U/L (23-300); Potassium 2.9 mmol/L (3.4-5.0); Sodium 135 mmol/L (137-145)
[2021-11-15] MEDS: BELLADONNA ALK/PHENOB ELIX 10 ML, MAG HYDROX/ALUMINUM HYD/SIMETH 30 ML, LIDOCAINE HCL 2... PO (21:33)
[2021-11-15 22:22] LABS: Appearance Urine Clear (Clear); Bilirubin Urine Negative (Negative); Blood Urine 1+ (Negative); Color Urine Yellow (Yellow); Glucose Urine UA 2+ mg/dL (Negative); Ketones Urine 3+ mg/dL (Negative); Leukocyte Esterase Ur Negative LEU/UL (Negative); Nitrate Urine Negative (Negative); Protein Urine 2+ mg/dL (Negative); Specific Grav Ur 1.025 (1.001-1.035); Urobilinogen Urine 0.2 mg/dL (<2.0); pH Urine 6.5 (5.0-9.0)
[2021-11-15 22:24] LABS: Mucus Urine Rare /lpf; RBC Urine 0-2 /hpf (0-2); WBC Urine 0-3 /hpf
[2021-11-15 22:28] LABS: Add Urine Microscopic? YES
--- NOTE | 2021-11-15 22:59 | PC.NURSE ---
Report received from LULU Jerez. Assumed care of patient at this time.
--- NOTE | 2021-11-15 23:28 | ED.GENADULT ---
HPI - General Adult General Chief complaint: Abdominal Pain Stated complaint: epigastric pain, N/V Time Seen by Provider: 11/15/21 20:16 History of Present Illness HPI narrative: Patient is a 51-year-old female who presents ER with epigastric pain. Ongoing for couple days. Was recently evaluated here and had unremarkable blood work and an unremarkable CT scan. She reports its aching and burning and is started to radiate up into her chest and she has a bad taste in the back of her throat. She has not been eating due to nausea. Her nausea has improved with antiemetics that were prescribed previously but she still does not have an appetite. She is not currently having diarrhea. No fevers or chills or sweats. No exertional chest pain. Related Data Home Medications Medication Instructions Recorded Confirmed atenolol 50 mg-chlorthalidone 25 1 tablet DAILY 09/25/21 11/13/21 mg tablet Allergies Allergy/AdvReac Type Severity Reaction Status Date / Time quinine Allergy Unknown Verified 11/15/21 20:09 Review of Systems Review of Systems: All systems reviewed & are unremarkable except as noted in HPI and below Constitutional: Constitutional: Denies chills, Reports fatigue and Denies fever(s) ENT: Denies nasal congestion and Denies sore throat Cardiovascular: Cardiovascular: Denies chest pain, Denies rapid heart rate and Denies radiating jaw, neck or arm pain Respiratory: Respiratory: Denies cough and Denies dyspnea Gastrointestinal: Gastrointestinal: Reports abdominal pain, Reports heartburn, Denies diarrhea, Reports nausea and Denies vomiting Genitourinary: Genitourinary: Denies nocturia, Denies dysuria and Denies flank pain [facility] Past Medical History Medical History (Updated 11/16/21 @ 00:24 by Patric Gillette MD) Diabetes mellitus HTN (hypertension) with goal to be determined Surgical History Surgical History H/O section Family History Family History Sibling Diabetes mellitus Social History Social History Years smoked: 34 Smoking status: Light tobacco smoker Tobacco type: cigarettes Alcohol intake: current Drinks per week: 2 Substance use: never Substance use type: does not use Gender identity (if verbalized by the patient): Female Spiritual care concerns: No Exam Narrative: GENERAL: Well-appearing, well-nourished, and in no acute distress. HEAD: Normocephalic, atraumatic. CHEST: Clear to auscultation. No respiratory distress. HEART: Regular rate and rhythm. Normal peripheral pulses. ABDOMEN: Soft, mild epigastric tenderness, nondistended. EXTREMITIES: Normal range of motion. No edema. SKIN: Warm, dry, no rash. NEURO: Alert and oriented x3. PSYCH: Normal mood and affect. Course Course Emergency Course: Patient tolerating fluids. Did not want to eat crackers. Had improvement of symptoms with GI cocktail. Will start on Pepcid. Vital Signs Vital signs: Vital Signs Temperature 98.2 F 11/15/21 20:09 Pulse Rate 90 11/15/21 20:09 Respiratory Rate 18 11/15/21 20:09 Blood Pressure 168/84 H 11/15/21 20:09 Pulse Oximetry 100 11/15/21 20:09 Temperature 98.2 F 11/15/21 20:09 Pulse Rate 90 11/15/21 23:45 Respiratory Rate 22 H 11/15/21 23:45 Blood Pressure 195/97 H 11/15/21 23:31 Pulse Oximetry 100 11/15/21 23:45 Medical Decision Making Vital Signs Vital Signs: Vital Signs Temperature 98.2 F 11/15/21 20:09 Pulse Rate 90 11/15/21 20:09 Respiratory Rate 18 11/15/21 20:09 Blood Pressure 168/84 H 11/15/21 20:09 Pulse Oximetry 100 11/15/21 20:09 Temperature 98.2 F 11/15/21 20:09 Pulse Rate 90 11/15/21 23:45 Respiratory Rate 22 H 11/15/21 23:45 Blood Pressure 195/97 H 11/15/21 23:31 Pulse Oximetry 100 11/15
--- NOTE | 2021-11-15 23:40 | PC.NURSE ---
Crackers and water given for PO challenge.
--- NOTE | 2021-11-16 00:11 | PC.NURSE ---
Patient states she was able to keep the water down but did not want to try to eat crackers at this time. Patient states her pain is still present but not worse at this time. ERP notified.
[2021-11-16] MEDS: FAMOTIDINE 20 MG/2 ML VIAL IV PUSH (00:31)
[2021-11-16 00:33] VITALS: BP 175/85; PULSE 85; RESP 17; O2SAT 100
== END 2021-11-16 00:43 | disposition home or self-care (01) ==
PROVIDERS: Emergency Provider Emergency Medicine; PCP Registered Nurse
DX: K29.70 Gastritis, unspecified, without bleeding (principal); E11.9 Type 2 diabetes mellitus without complications; I10 Essential (primary) hypertension; F17.210 Nicotine dependence, cigarettes, uncomplicated; Z79.82 Long term (current) use of aspirin; Z79.84 Long term (current) use of oral hypoglycemic drugs
CPT/HCPCS: 36415; 80053; 81001; 81025; 83690; 85025; 96374; 99284; A9270

== ENCOUNTER 2021-11-17 16:15 | Inpatient (IN) | payer OTHER, SELFPAY ==
[2021-11-17] VITALS (20 sets, daily range): BP systolic 62–161; BP diastolic 41–87; PULSE 67–78; RESP 15–22; TEMP 36.4–36.8; O2SAT 95–100; BMI 28.3
--- NOTE | ~2021-11-17 | US_ITS ---
EXAMINATION: US carotid duplex BI DATE: 11/19/2021 15:07 INDICATION: Syncopal episode TECHNIQUE: Grayscale, color Doppler, and pulsed Doppler images of the cervical carotid arteries were obtained. The degree of vessel stenosis is placed in one of the following categories: normal, <50%, 5 0-69%, >=70% but less than near-occlusion, near-occlusion, or total occlusion. Note that percent sten osis relative to normal distal artery lumen diameter is indirectly measured from velocity measurement s as described by Phil, et al. Radiology 2003; 229:[id number]. COMPARISON: None. FINDINGS: RIGHT: The right common carotid artery (CCA) peak systolic velocity (PSV) is 88 cm/s. The right internal car otid artery (ICA) PSV is 105 cm/s. The right ICA end-diastolic velocity (EDV) is 41 cm/s. The right I CA/CCA PSV ratio is 1.2. Grayscale and color Doppler images yield an estimate of <50% diameter reduct ion from plaque in the ICA. The external carotid artery (ECA) PSV is 89 cm/s. There is antegrade flow in the right vertebral artery. LEFT: The left CCA PSV is 101 cm/s. The left ICA PSV is 75 cm/s. The left ICA EDV is 26 cm/s. The left ICA/ CCA PSV ratio is 0.7. Grayscale and color Doppler images yield an estimate of <50% diameter reduction from plaque in the ICA. The ECA PSV is 112 cm/s. There is antegrade flow in the left vertebral arter y. IMPRESSION: 1. <50% stenosis in the right internal carotid artery. 2. <50% stenosis in the left internal carotid artery. Reviewed, dictated and finalized at location A.
--- NOTE | ~2021-11-17 | CT_ITS ---
EXAMINATION: CT brain wo con DATE: 11/17/2021 18:11 INDICATION: syncope, HI . TECHNIQUE: Computed tomography (CT) of the head was performed without intravenous contrast. The mA wa s adjusted according to patient size. Iterative reconstruction technique was employed. The dose-lengt h product was 529.67 mGy-cm. COMPARISON: None FINDINGS: No acute intracranial hemorrhage or extra-axial fluid collection. No hydrocephalus, mass, or herniation. No acute ischemic infarct. Unremarkable dural venous sinus attenuation. No acute osseous abnormality. The aerated spaces are clear. IMPRESSION: No acute intracranial process. Reviewed, dictated and finalized at location K.
--- NOTE | ~2021-11-17 | CT_ITS ---
EXAMINATION: CT cervical spine wo con DATE: 11/17/2021 18:11 INDICATION: syncope, HI, neck pain TECHNIQUE: Computed tomography (CT) of the cervical spine was performed without intravenous contrast. Automated exposure control and iterative reconstruction technique were employed. The dose-length pro duct was 364.31 mGy-cm. COMPARISON: None FINDINGS: Vertebral Body Alignment: Cervical spine straightening. Craniocervical and atlantoaxial alignment: Moderate degenerative change. Alignment intact. Osseous structures/fracture: No evidence of a lytic or blastic process in the visualized spine. No e vidence of acute fracture. Cervical soft tissues: The paraspinal soft tissues planes are maintained. Degenerative changes: Multilevel severe degenerative disc disease with posteriorly directed osteophyt es. Severe right neural foraminal narrowing at C6-7. Multilevel moderate bilateral neural foraminal n arrowing. Multilevel moderate central canal narrowing. IMPRESSION: No acute fracture or traumatic malalignment in the cervical spine. Reviewed, dictated and finalized at location K.
--- NOTE | 2021-11-17 16:23 | ECG_ITS ---
Measurements Intervals [place] Rate: 71 P: -5 SD: 106 QRS: 40 QRSD: 92 T: 59 QT: 478 QTc: 521 Interpretive Statements SINUS RHYTHM WITH SHORT SD INTERVAL PROLONGED QT INTERVAL COMPARED TO ECG 09/05/2019 12:02:03 PROLONGED QT INTERVAL NOW PRESENT Electronically Signed On 11-18-2021 14:36:06 CDT by Kaushal Becerra M.D.
[2021-11-17 16:39] LABS: Basophils Absolute Auto 0.1 K/mm3 (0.0-0.1); Basophils Percent Auto 0.3 % (0.2-1.2); Eosinophils Percent Auto 0.2 % (0-4.4); Hematocrit 42.9 % (37.0-47.0); Hemoglobin 15.3 g/dL (12.0-15.0); Immature Granulocyte Absolute 0.06 K/mm3 (0.00-0.031); Immature Granulocyte Percent A 0.4 % (0-0.5); Lymphocytes Percent Auto 25.7 % (18.3-44.2); Mean Corpuscular HGB Conc 35.7 g/dl (32-36); Mean Corpuscular Hemoglobin 30.2 pg (26-34); Mean Corpuscular Volume 84.6 fl (80-100); Mean Platelet Volume 10.5 fl (7.4-10.4); Monocytes Absolute Auto 0.9 K/mm3 (0.1-0.6); Monocytes Percent Auto 6.2 % (2.6-8.5); Neutrophils Absolute Auto 9.6 K/mm3 (1.3-6.7); Neutrophils Percent Auto 67.2 % (45.5-73.1); Platelet Count Result 256 k/mm3 (150-375); Red Blood Count 5.07 M/mm3 (4.2-5.4); Red Cell Distribution Width 12.1 % (11.5-14.5); White Blood Count 14.4 K/mm3 (4.5-10.0)
[2021-11-17] MEDS: SODIUM CHLORIDE 0.9% IV 1,000 ML 999 ML IV CONT ×2 (17:09→19:42)
[2021-11-17 17:17] LABS: Alanine Aminotransferase 29 U/L (6-35); Alkaline Phosphatase 73 U/L (38-126); Anion Gap 10 mmol/L (8-16); Aspartate Amino Transferase 35 U/L (14-36); Bilirubin,Total 0.8 mg/dL (0.2-1.3); Blood Urea Nitrogen 25 mg/dL (7-17); Calcium 8.7 mg/dL (8.4-10.2); Carbon Dioxide 28 mmol/L (22-30); Chloride 85 mmol/L (98-107); Estimated CRCL calculation 42 ml/min; Estimated Glomerular Filt Rate 44; Glucose 206 mg/dL (65-110); Potassium 2.7 mmol/L (3.4-5.0); Sodium 123 mmol/L (137-145)
--- NOTE | 2021-11-17 17:17 | ED.GENADULT ---
HPI - General Adult General Chief complaint: Syncope <OFELIA Olivera Last Filed: 11/17/21 19:18> Stated complaint: syncope <OFELIA Olivera Last Filed: 11/17/21 19:18> Time Seen by Provider: 11/17/21 16:59 <OFELIA Olivera Last Filed: 11/17/21 19:18> Source: patient and old records reviewed <OFELIA Olivera Last Filed: 11/17/21 19:18> Mode of arrival: ambulatory <OFELIA Olivera Last Filed: 11/17/21 19:18> Limitations: no limitations <OFELIA Olivera Last Filed: 11/17/21 19:18> History of Present Illness HPI narrative: Patient is a 51-year-old female presents the ED with report of syncope. Patient reports she passed out twice while in her kitchen washing dishes today. Her was nearby and reports brief loss of consciousness. She did hit her head in the second fall and sustained a small contusion to her right periorbital region. She denies having any vision changes, headache, dizziness, lightheadedness prior to the syncopal episodes. Does report some R sided neck pain currently. No back pain. Per patient's records, patient was seen in the ED on 11/13 and 11/15 for acute nausea and vomiting, gastritis, dehydration. She states she has not vomited since her first ED visit, but does still feel nauseous. Minimal abdominal pain. She states she has not eaten much as she does not have an appetite. She has been trying to drink plenty of fluids. Does report constipation, with last bowel movement on Thursday which was diarrhea. No blood. No fevers. No SOB, CP. <OFELIA Olivera Last Filed: 11/17/21 19:18> Related Data Home medications: Home Medications Medication Instructions Recorded Confirmed atenolol 50 mg-chlorthalidone 25 1 tablet PO DAILY 09/25/21 11/17/21 mg tablet insulin glargine 100 unit/mL (3 20 unit subcut HS 11/17/21 11/17/21 mL) subcutaneous pen (Lantus Solostar U-100 Insulin) tirzepatide 5 mg/0.5 mL 5 mg subcut WEEKLY 11/17/21 11/17/21 subcutaneous pen injector (Mounjaro) <Amelia Mcqueen PA-C - Last Filed: 11/17/21 19:18> Allergies/adverse reactions: Allergies Allergy/AdvReac Type Severity Reaction Status Date / Time quinine Allergy Rash Verified 11/17/21 16:23 <Amelia Mcqueen PA-C - Last Filed: 11/17/21 19:18> Review of Systems Review of Systems: CONSTITUTIONAL: Denies fever, chills, or sweats. EYES: Denies visual changes. CARDIOVASCULAR: Denies chest pain. RESPIRATORY: Denies dyspnea. GASTROINTESTINAL: Reports nausea, epigastric abdominal pain, constipation. Denies vomiting. MUSCULOSKELETAL: Reports R sided neck pain. Denies back pain. NEUROLOGIC: Reports syncope, HI. Denies dizziness, lightheadedness, headache, numbness, or weakness. <Amelia Mcqueen PA-C - Last Filed: 11/17/21 19:18> All systems reviewed & are unremarkable except as noted in HPI and below <Amelia Mcqueen PA-C - Last Filed: 11/17/21 19:18> [facility] Past Medical History Medical History: Medical History Diabetes mellitus HTN (hypertension) with goal to be determined Hyperlipidemia <Amelia Mcqueen PA-C - Last Filed: 11/17/21 19:18> Surgical History Surgical History: Surgical History H/O section H/O eye surgery History of surgery on lower extremity right leg <Amelia Mcqueen PA-C - Last Filed: 11/17/21 19:18> Family History Family History: Family History (Updated 11/17/21 @ 18:58 by Elisa Olivo NP) Sibling Diabetes mellitus Father Acute myocardial infarction Mother Acute myocardial infarction <Amelia Mcqueen PA-C - Last Filed: 11/17/21 19:18> Social History Social History: Social History Social Hi
[2021-11-17] MEDS: POTASSIUM CHLORIDE INJ 40 MEQ in SODIUM CHLORIDE 0.9% IV 500 ML 130 MEQ IVPB (17:55)
[2021-11-17 18:00] LABS: Appearance Urine Clear (Clear); Bilirubin Urine 1+ (Negative); Blood Urine Negative (Negative); Color Urine Yellow (Yellow); Glucose Urine UA 1+ mg/dL (Negative); Ketones Urine Trace mg/dL (Negative); Leukocyte Esterase Ur Negative LEU/UL (Negative); Nitrate Urine Negative (Negative); Protein Urine 2+ mg/dL (Negative); Specific Grav Ur 1.025 (1.001-1.035); Urobilinogen Urine 0.2 mg/dL (<2.0); pH Urine 6.5 (5.0-9.0)
[2021-11-17 18:14] LABS: Lactic Acid Reflex 1.6 mmol/L (0.7-2.0)
[2021-11-17 18:17] LABS: Mucus Urine Rare /lpf; RBC Urine 0-2 /hpf (0-2); Squamous Epithelial Cell Urine Many /hpf (Few); WBC Urine 0-3 /hpf
[2021-11-17 18:18] LABS: Add Urine Microscopic? YES
--- NOTE | 2021-11-17 18:53 | PM.IMHP ---
H&P: HPI History of Present Illness Date/Time: 11/17/21 18:53 Chief Complaint: Syncope Narrative: This is a 51-year-old female patient who has a history of diabetes and hypertension. The patient stated that she passed out twice yesterday. Her was nearby and reports a brief loss of consciousness. The patient also stated that she took some oxycodone today for pain to her gum line. She recently had oral surgery. The patient has a abrasion to her right brow line from falling. She did hit her head on the 2nd fall. She denies having any visual changes or dizziness prior to the syncopal episode. She has no back pain. The patient has been here on 2 previous occasions in the emergency room on 11/13 and for acute nausea and vomiting gastritis and dehydration. The patient recently was started on a new medication mounjaro. The patient stated that she has been losing with this medication and she has been losing her appetite and she has had some nausea and diarrhea. I reviewed the side effects with the patient and includes nausea diarrhea appetite decreased vomiting and upset stomach. It can also lead to acute kidney injury. The patient stated that her has been trying to get her to stop taking this medication. Her white count was noted to be 14.4. Her potassium was found to be 2.7. And her sodium 123. Blood sugars 162. The patient stated that her blood sugars have been in the 100s typically. Patient's creatinine is 1.3 anion gap is 10. Lactic was normal. The patient was started on IV fluids in the emergency room, she was given potassium, and Zofran. Her head CT was read as no acute intracranial process. Cervical spine CT was read as no acute fracture or traumatic malalignment in the cervical spine. The patient is being admitted to observation status on the date of service of 11/17/2021 Review of Systems Review of Systems: See HPI All systems reviewed & are unremarkable except as noted in HPI and below Constitutional: Constitutional: Reports as per HPI and Reports no additional constitutional complaints Eyes: Eyes: Reports as per HPI and Reports no additional eye complaints ENT: Reports system reviewed and no additional complaints, except as documented and Reports Normal hearing present Cardiovascular: Cardiovascular: Reports no additional cardiovascular complaints Respiratory: Respiratory: Reports no additional respiratory complaints and Reports no additional respiratory complaints Gastrointestinal: Gastrointestinal: Reports as per HPI and Reports no additional gastrointestinal complaints Musculoskeletal: Musculoskeletal: Reports no additional musculoskeletal complaints Integumentary/Breasts: Skin/Breast: Reports system reviewed and no additional complaints, except as docu and Reports as per HPI Neurologic: Reports system reviewed and no additional complaints, except as documented, Reports as per HPI and Reports Normal hearing present Psychiatric: Psychiatric: Reports no additional psychiatric complaints and Reports as per HPI Endocrine: Endocrine: Reports no additional endocrine complaints Hematologic/Lymphatic: Hematologic/Lymphatic: Reports no additional hematologic/lymphatic complaints Allergic/Immunologic: Allergic/Immunologic: Reports no additional allergic/immunologic complaints [facility] Past Medical History Medical History (Updated 11/17/21 @ 23:40 by Elisa Olivo NP) Acute kidney failure Diabetes mellitus HTN (hypertension) with goal to be determined Hyperlipidemia Surgical History Surgical History (Updated 11/17/21 @ 23:34 by Elisa Olivo NP) H/O section H/O eye surgery H/O oral surgery History of surgery on lower extremity right leg Family History Family History Sibling Diabetes mellitus Father Acute myocardial infarction Mother Acute myocardial infarction Social History Social History (Updated
[2021-11-17] MEDS: ONDANSETRON INJ 4 MG/2 ML VIAL IV PUSH (19:41)
--- NOTE | 2021-11-17 20:20 | ADMGEN ---
This patient, Vangie King, was admitted to Medical Room 253-01. Patient/family oriented to hospital policies and general routines including ID bracelet, bed and alarms, visiting hours, pain management, procedures, bathroom and other care routines, personal items, smoking policy, room service/diet, and visiting hours. Information on how to activate the Rapid Response Team has been discussed. Patient/Family are encouraged to report perceived risks to care and to ask questions if they do not understand what they are told or what they should do.
[2021-11-17 21:09] LABS: Glucose Point of Care 162 mg/dl (65-105)
[2021-11-17] MEDS: MELATONIN 5 MG TABLET PO (22:23)
[2021-11-17] MEDS: SODIUM CHLORIDE 0.9% IV 1,000 ML 125 ML IV CONT (22:27)
[2021-11-17] MEDS: FAMOTIDINE 20 MG/2 ML VIAL IV PUSH (22:41)
[2021-11-17] MEDS: INSULIN GLARGINE (*BKC) 100 UNITS/ML 20 UNITS SUB-Q (23:32)
[2021-11-17 23:36] LABS: Glucose Point of Care 151 mg/dl (65-105)
[2021-11-18] VITALS (9 sets, daily range): BP systolic 153–171; BP diastolic 85–98; PULSE 66–78; RESP 12–18; TEMP 36.6–36.7; O2SAT 99; BMI 28.3
[2021-11-18 00:22] LABS: Anion Gap 7 mmol/L (8-16); Blood Urea Nitrogen 19 mg/dL (7-17); Carbon Dioxide 27 mmol/L (22-30); Chloride 93 mmol/L (98-107); Estimated CRCL calculation 55 ml/min; Estimated Glomerular Filt Rate 59; Glucose 154 mg/dL (65-110); Potassium 2.8 mmol/L (3.4-5.0); Sodium 127 mmol/L (137-145)
--- NOTE | 2021-11-18 01:29 | PC.NURSE ---
PT CRITICAL POTASSIUM REPORTED TO DR LOUISE. ORDERED 80 PO K NOW AND REPEAT BMP AT 0500. IF 3.0 OR LESS GIVE 80 PO K AGAIN IF 3.0-3.5 GIVE 40 PO. PT SODIUM ALSO LOW WAS 123 ON ADMISSION AND JUMPED TO 127. ORDER TO DROP NS FLOW RATE FROM 125 TO 100 AND CALL IF SODIUM 130 OR GREATER ON AM LABS.
[2021-11-18] MEDS: POTASSIUM CHLORIDE 20 MEQ TABLET 80 MEQ PO (01:33)
[2021-11-18] MEDS: SODIUM CHLORIDE 0.9% IV 1,000 ML 100 ML IV CONT ×2 (02:55→15:34)
[2021-11-18 06:03] LABS: Basophils Percent Auto 0.3 % (0.2-1.2); Eosinophils Absolute Auto 0.1 K/mm3 (0-0.3); Eosinophils Percent Auto 0.5 % (0-4.4); Hematocrit 41.1 % (37.0-47.0); Hemoglobin 14.6 g/dL (12.0-15.0); Immature Granulocyte Absolute 0.06 K/mm3 (0.00-0.031); Immature Granulocyte Percent A 0.6 % (0-0.5); Lymphocytes Absolute Auto 3.59 K/mm3 (0.9-3.2); Lymphocytes Percent Auto 33.1 % (18.3-44.2); Mean Corpuscular HGB Conc 35.5 g/dl (32-36); Mean Corpuscular Hemoglobin 30.2 pg (26-34); Mean Corpuscular Volume 85.1 fl (80-100); Monocytes Absolute Auto 0.9 K/mm3 (0.1-0.6); Monocytes Percent Auto 8.1 % (2.6-8.5); Neutrophils Absolute Auto 6.2 K/mm3 (1.3-6.7); Neutrophils Percent Auto 57.4 % (45.5-73.1); Platelet Count Result 206 k/mm3 (150-375); Red Blood Count 4.83 M/mm3 (4.2-5.4); Red Cell Distribution Width 12.2 % (11.5-14.5); White Blood Count 10.8 K/mm3 (4.5-10.0)
[2021-11-18 06:35] LABS: Alanine Aminotransferase 24 U/L (6-35); Albumin Level 3.6 g/dL (3.5-5.1); Alkaline Phosphatase 62 U/L (38-126); Anion Gap 6 mmol/L (8-16); Aspartate Amino Transferase 28 U/L (14-36); Bilirubin,Total 0.8 mg/dL (0.2-1.3); Blood Urea Nitrogen 17 mg/dL (7-17); Calcium 8.3 mg/dL (8.4-10.2); Carbon Dioxide 27 mmol/L (22-30); Chloride 95 mmol/L (98-107); Estimated CRCL calculation 55 ml/min; Estimated Glomerular Filt Rate 59; Glucose 143 mg/dL (65-110); Magnesium 1.9 mg/dL (1.6-2.3); Phosphorus 2.5 mg/dL (2.5-4.5); Potassium 3.1 mmol/L (3.4-5.0); Sodium 128 mmol/L (137-145)
[2021-11-18] MEDS: POTASSIUM CHLORIDE 20 MEQ TABLET 40 MEQ PO ×2 (06:39→09:33)
[2021-11-18 07:26] LABS: Hemoglobin A1C 8.7 % (<5.7)
[2021-11-18 07:58] LABS: Glucose Point of Care 147 mg/dl (65-105)
[2021-11-18] MEDS: FAMOTIDINE 20 MG/2 ML VIAL IV PUSH (08:19)
[2021-11-18] MEDS: ENOXAPARIN 40 MG/0.4 ML SYRINGE SUB-Q (08:19)
[2021-11-18] MEDS: ASPIRIN 81 MG ENTERIC TABLET PO (08:19)
[2021-11-18] MEDS: ATORVASTATIN 10 MG TABLET PO (08:19)
[2021-11-18 11:49] LABS: Glucose Point of Care 161 mg/dl (65-105)
--- NOTE | 2021-11-18 14:05 | PM.IMPN ---
Progress Note: A&P Assessment and Plan (1) Syncope and collapse: Code(s): R55 - Syncope and collapse Status: Acute Assessment and Plan: -it could be related to dehydration. The patient did have 2 syncopal episodes at home. The patient also admitted to taking pain pills today due to pain from oral surgery. -she also had electrolyte imbalances. 11/18/2021 interval history: patient is 51 female with Diabeted II, was given Mounjaro for weight lost, patient has developed nausea, vomiting and diarrhea with medication presented with syncopal episodes and collops, it is possible these are side effect of the medication resulting in dehydration and hypokalemia and may have caused syncopal episode to further evaluate will do cardiac echo and carotid US, patient is being hydrated, will monitor and supplement potassium, will have PT evaluate the patient and once clinically stable, will discharge her possibly tomorrow, (2) HTN (hypertension) with goal to be determined: Code(s): I10 - Essential (primary) hypertension Status: Acute Assessment and Plan: -I am going to hold her lisinopril due to her acute kidney injury -I am going to hold her diuretic as well as she has low sodium and low potassium (3) Hyperlipidemia: Code(s): E78.5 - Hyperlipidemia, unspecified Status: Acute Assessment and Plan: -continue with atorvastatin (4) Acute dehydration: Code(s): E86.0 - Dehydration Status: Acute Assessment and Plan: -patient is having acute kidney injury. -the patient has been having a low decreased appetite with nausea vomiting. -continue with IV fluids. (5) Acute hypokalemia: Code(s): E87.6 - Hypokalemia Status: Acute Assessment and Plan: -patient was given oral and IV potassium. -check magnesium level. -patient has had nausea and vomiting. Continue with antiemetics. (6) Acute hyponatremia: Code(s): E87.1 - Hypo-osmolality and hyponatremia Status: Acute Assessment and Plan: -Patient has been on chlorthalidone with her atenolol so I am holding that medication. -the patient has been having nausea and vomiting as well. Continue with H2 becky (7) ARELY (acute kidney injury): Code(s): N17.9 - Acute kidney failure, unspecified Status: Acute Assessment and Plan: -this could be the side effects of her new medication mourjaro -could be related to her dehydration. -the patient was also on chlorthalidone which we are holding -hold metformin for now. -hold lisinopril for now (8) Nausea & vomiting: Code(s): R11.2 - Nausea with vomiting, unspecified Status: Acute Assessment and Plan: -continue with IV fluids. -continue to monitor electrolytes. -continue with antiemetics. -this could be from the side effects of her medication. -continue with IV fluids. (9) Diabetes mellitus: Code(s): E11.9 - Type 2 diabetes mellitus without complications Status: Acute Assessment and Plan: -Accu-Cheks AC and HS with sliding scale insulin. -hold metformin. -hold munjaro -check A1c. Subjective Date/time seen: 11/18/21 14:05 HPI-Narrative: This is a 51-year-old female patient who has a history of diabetes and hypertension.? The patient stated that she passed out twice yesterday.? Her was nearby and reports a brief loss of consciousness.? The patient also stated that she took some oxycodone today for pain to her gum line.? She recently had oral surgery.? The patient has a abrasion to her right brow line from falling.? She did hit her head on the 2nd fall.? She denies having any visual changes or dizziness prior to the syncopal episode.? She has no back pain.? The patient has been here on 2 previous occasions in the emergency room on 11/13 and 0 for acute nausea and vomiting gastritis and dehydration.? The patient recently was started on a new medication mounjaro.? The patient stated that she has
[2021-11-18] MEDS: ONDANSETRON INJ 4 MG/2 ML VIAL IV PUSH (14:12)
[2021-11-18] MEDS: PANTOPRAZOLE 40 MG TABLET PO (15:54)
[2021-11-18 16:40] LABS: Glucose Point of Care 153 mg/dl (65-105)
[2021-11-18] MEDS: MELATONIN 5 MG TABLET PO (20:45)
[2021-11-18] MEDS: INSULIN GLARGINE (*BKC) 100 UNITS/ML 20 UNITS SUB-Q (20:45)
[2021-11-18 20:49] LABS: Glucose Point of Care 163 mg/dl (65-105)
[2021-11-19] VITALS: PULSE 74
--- NOTE | 2021-11-19 | ECHO_ITS ---
Patient Info Name: Vangie King Age: 51 years : 1970 Gender: Female Ht: 62 in Wt: 154 lbs BSA: 1.77 m2 HR: 76 bpm BP: 160 / 91 mmHg Heart Rhythm: Sinus Rhythm Exam Date: 11/19/2021 1:32 PM Exam Location: [facility] Pulmonary Patient Status: Inpatient Admit Date: 11/19/2021 Staff Ordering Physician: Roni Juarez MD Debt Recovery Officer: Viky Vazquez RDCS Attending Provider: Elisabet Hartley DO Exam Type: CA echo doppler color flow Study Info Indications R55 - Syncope and collapse Complete two-dimensional, color flow and Doppler transthoracic echocardiogram is performed. Summary 1. Complete two-dimensional, color flow and Doppler transthoracic echocardiogram is performed. 2. Left ventricular systolic function is hyperdynamic, estimated at >70%. 3. The left ventricular diastolic function is grade I diastolic dysfunction. 4. Right ventricular systolic function is normal. 5. There is a moderate anterior pericardial effusion. 6. No significant valvular disease. Left Ventricle Left ventricular chamber dimension is normal. Left ventricular systolic function is hyperdynamic, estimated at >70%. There is no increased left ventricular wall thickness. The left ventricular diastolic function is grade I diastolic dysfunction. Right Ventricle Right ventricular chamber dimension is normal. Right ventricular systolic function is normal. Left Atria Left atrial chamber dimension is normal. Right Atria Right atrial chamber dimension is normal. Aortic Valve The aortic valve is not well visualized. There is no aortic valve stenosis. There is no aortic valve regurgitation. Pulmonic Valve The pulmonic valve is not well visualized. Mitral Valve The mitral valve has normal leaflets. There is no mitral valve stenosis. There is no mitral valve regurgitation. Tricuspid Valve The tricuspid valve leaflets are not well visualized. There is no significant tricuspid valve stenosis. There is trace tricuspid valve regurgitation. Pericardium/Pleural There is a moderate anterior pericardial effusion. Inferior Vena Cava Normal inferior vena cava with >50% collapse upon inspiration consistent with Empty right atrial pressure, Empty. Left Ventricular Outflow Tract Name Value Normal LVOT 2D LVOT Diameter 2.0 cm LVOT Doppler LVOT Peak Gradient 3 mmHg LVOT Mean Gradient 2 mmHg LVOT VTI 14 cm LVOT VTI/AV VTI Ratio 0.9 LVOT Stroke Volume 45 ml LVOT CO 3.5 l/min LVOT CI 2.0 l/min/m2 Pulmonic Valve Name Value Normal RVOT Doppler RVOT Peak Gradient 3 mmHg PV Doppler
[2021-11-19] MEDS: SODIUM CHLORIDE 0.9% IV 1,000 ML 100 ML IV CONT ×2 (02:23→14:01)
[2021-11-19 04:00] VITALS: PULSE 68
[2021-11-19 05:03] LABS: Hematocrit 37.4 % (37.0-47.0); Hemoglobin 13.1 g/dL (12.0-15.0); Mean Corpuscular Hemoglobin 29.4 pg (26-34); Mean Corpuscular Volume 83.9 fl (80-100); Mean Platelet Volume 10.7 fl (7.4-10.4); Platelet Count Result 187 k/mm3 (150-375); Red Blood Count 4.46 M/mm3 (4.2-5.4); White Blood Count 8.8 K/mm3 (4.5-10.0)
[2021-11-19 05:24] LABS: Anion Gap 7 mmol/L (8-16); Blood Urea Nitrogen 11 mg/dL (7-17); Calcium 8.1 mg/dL (8.4-10.2); Carbon Dioxide 24 mmol/L (22-30); Chloride 96 mmol/L (98-107); Estimated CRCL calculation 68 ml/min; Estimated Glomerular Filt Rate > 60; Glucose 122 mg/dL (65-110); Magnesium 1.7 mg/dL (1.6-2.3); Potassium 3.1 mmol/L (3.4-5.0); Sodium 127 mmol/L (137-145)
[2021-11-19 06:23] VITALS: BP 160/91; PULSE 68; RESP 14; TEMP 36.7; O2SAT 100
[2021-11-19 08:00] VITALS: PULSE 76
[2021-11-19] MEDS: PANTOPRAZOLE 40 MG TABLET PO (08:09)
[2021-11-19] MEDS: POTASSIUM CHLORIDE 20 MEQ TABLET 40 MEQ PO (08:33)
[2021-11-19] MEDS: ASPIRIN 81 MG ENTERIC TABLET PO (08:33)
[2021-11-19] MEDS: ATORVASTATIN 10 MG TABLET PO (08:33)
[2021-11-19] MEDS: ENOXAPARIN 40 MG/0.4 ML SYRINGE SUB-Q (08:34)
[2021-11-19 08:36] LABS: Glucose Point of Care 125 mg/dl (65-105)
[2021-11-19] MEDS: CALCIUM CARBONATE (TUMS) 500 MG (200 MG ELEMENTAL) PO (11:32)
[2021-11-19] MEDS: ONDANSETRON INJ 4 MG/2 ML VIAL IV PUSH (11:32)
[2021-11-19 12:09] LABS: Glucose Point of Care 180 mg/dl (65-105)
[2021-11-19 14:40] VITALS: BP 159/93; PULSE 85; RESP 14; TEMP 36.4; O2SAT 100
--- NOTE | 2021-11-19 15:19 | WPDGICN ---
Assessment and Plan Assessment and plan (1) Nausea & vomiting: Code(s): R11.2 - Nausea with vomiting, unspecified Status: Acute Assessment and Plan: Nausea and vomiting of uncertain etiology. Potentially related to diabetes he is however appears to be relatively well to trolled at the time of her current. She reports a new medication which could have contributed this stopping this Medication is prudent at present. An EGD will be performed because of nausea vomiting as well as her dysphagia. (2) Diabetes mellitus: Code(s): E11.9 - Type 2 diabetes mellitus without complications Status: Acute (3) Syncope and collapse: Code(s): R55 - Syncope and collapse Status: Acute (4) Dysphagia: Code(s): R13.10 - Dysphagia, unspecified Status: Acute Assessment and Plan: Peg patient complains of food catching in the mid substernal portion the chest. This symptom is only been present for on week. But she does have ongoing nausea vomiting. Plan to proceed with EGD is requested to exclude organic disease. Soft bland diet is advised otherwise. Perhaps a trial of Protonix would be prudent at present. Strict control of glucose . correct her electrolyte disturbances also encouraged GI Consult Note Consult date/time: 11/19/21 15:19 Reason for consult: Nausea and vomiting and dysphagia. HPI: Vangie King is a 51 year old female I am asked to see because of episode of nausea vomiting and dysphagia. Patient known to my service where she had nausea vomiting related elevated blood glucose 2 years ago. Patient reports that she began a new medication called mounjaro to control her diabetes and assist with weight loss. She states that associated with this she began to have nausea vomiting. This precipitated her going to the emergency room on 11/13, 11/15, and 11/17/2021. Patient feels this medication may have contributed to her significant nausea vomiting. Patient ultimately was admitted the hospital on 11/17/2021 with electrolyte imbalance and apparent dehydration. She has started IV rehydration correction of her electrolytes but continues to have some nausea vomiting. For this reason I have been consulted. Patient does report that she has difficulty swallowing with food catching the mid substernal portion the chest. This has been present for only 1 week since these symptoms began. For this reason I am being asked to consider EGD. Patient denies any weight loss or bleeding. Review of Systems Review of Systems: Review of systems noncontributory. [facility] Past Medical History Medical History (Updated 11/19/21 @ 15:22 by You Weems MD) Acute kidney failure Diabetes mellitus HTN (hypertension) with goal to be determined Hyperlipidemia Surgical History Surgical History (Updated 11/17/21 @ 23:34 by Elisa Olivo NP) H/O section H/O eye surgery H/O oral surgery History of surgery on lower extremity right leg Family History Family History Sibling Diabetes mellitus Father Acute myocardial infarction Mother Acute myocardial infarction Social History Social History (Updated 11/17/21 @ 23:33 by Elisa Olivo NP) Social History: The patient stated that she has quit smoking. She denies alcohol. She stated she recently is smokes some marijuana to help increase her appetite. She works for associated [employer]. 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 Code status full code Years smoked: 34 Smoking status: Former smoker Tobacco type: cigarettes Alcohol intake: never Drinks per week: 2 Substance use: never Substance use type: does not use Gender identity (if verbalized by the patient): Female Spiritual care concerns: No Meds Home Medications and Allergies Home Medications Medication Instruc
--- NOTE | 2021-11-19 16:54 | PM.IMPN ---
Progress Note: A&P Assessment and Plan (1) Syncope and collapse: Code(s): R55 - Syncope and collapse Status: Acute Assessment and Plan: -it could be related to dehydration. The patient did have 2 syncopal episodes at home. The patient also admitted to taking pain pills today due to pain from oral surgery. -she also had electrolyte imbalances. 11/19/2021 interval history: patient is 51 female with Diabeted II, was given Mounjaro for weight lost, patient has developed nausea, vomiting and diarrhea with medication presented with syncopal episodes and collops, it is possible these are side effect of the medication resulting in dehydration and hypokalemia and may have caused syncopal episode to further evaluate patient had cardiac echo and carotid US which both normal, patient is being hydrated, today patient still feels dizzy, nuaseated and difficulty with swallowing, patient is seen by Dr. Weems and will have EGD tomorrow, will monitor and supplement potassium, will have PT evaluate the patient and once clinically stable, will discharge her possibly tomorrow, (2) HTN (hypertension) with goal to be determined: Code(s): I10 - Essential (primary) hypertension Status: Acute Assessment and Plan: -I am going to hold her lisinopril due to her acute kidney injury -I am going to hold her diuretic as well as she has low sodium and low potassium (3) Hyperlipidemia: Code(s): E78.5 - Hyperlipidemia, unspecified Status: Acute Assessment and Plan: -continue with atorvastatin (4) Acute dehydration: Code(s): E86.0 - Dehydration Status: Acute Assessment and Plan: -patient is having acute kidney injury. -the patient has been having a low decreased appetite with nausea vomiting. -continue with IV fluids. (5) Acute hypokalemia: Code(s): E87.6 - Hypokalemia Status: Acute Assessment and Plan: -patient was given oral and IV potassium. -check magnesium level. -patient has had nausea and vomiting. Continue with antiemetics. (6) Acute hyponatremia: Code(s): E87.1 - Hypo-osmolality and hyponatremia Status: Acute Assessment and Plan: -Patient has been on chlorthalidone with her atenolol so I am holding that medication. -the patient has been having nausea and vomiting as well. Continue with H2 becky (7) ARELY (acute kidney injury): Code(s): N17.9 - Acute kidney failure, unspecified Status: Acute Assessment and Plan: -this could be the side effects of her new medication mourjaro -could be related to her dehydration. -the patient was also on chlorthalidone which we are holding -hold metformin for now. -hold lisinopril for now (8) Nausea & vomiting: Code(s): R11.2 - Nausea with vomiting, unspecified Status: Acute Assessment and Plan: -continue with IV fluids. -continue to monitor electrolytes. -continue with antiemetics. -this could be from the side effects of her medication. -continue with IV fluids. (9) Diabetes mellitus: Code(s): E11.9 - Type 2 diabetes mellitus without complications Status: Acute Assessment and Plan: -Accu-Cheks AC and HS with sliding scale insulin. -hold metformin. -hold munjaro -check A1c. Subjective Date/time seen: 11/19/21 16:54 11/19/2021 interval history: patient is 51 female with Diabeted II, was given Mounjaro for weight lost, patient has developed nausea, vomiting and diarrhea with medication presented with syncopal episodes and collops, it is possible these are side effect of the medication resulting in dehydration and hypokalemia and may have caused syncopal episode to further evaluate patient had cardiac echo and carotid US which both normal, patient is being hydrated, today patient still feels dizzy, nuaseated and difficulty with swallowing, patient is seen by Dr. Weems and will have EGD tomorrow, will monitor and supplement potassium, will have PT
[2021-11-19 17:14] LABS: Glucose Point of Care 157 mg/dl (65-105)
[2021-11-19 20:07] LABS: Glucose Point of Care 177 mg/dl (65-105)
[2021-11-19] MEDS: MELATONIN 5 MG TABLET PO (20:32)
[2021-11-19] MEDS: INSULIN GLARGINE (*BKC) 100 UNITS/ML 20 UNITS SUB-Q (20:32)
[2021-11-19 20:38] VITALS: BP 152/84; PULSE 80; RESP 16; TEMP 36.5; O2SAT 99
[2021-11-20] MEDS: SODIUM CHLORIDE 0.9% IV 1,000 ML 100 ML IV CONT (00:47)
[2021-11-20 05:20] LABS: Hematocrit 38.7 % (37.0-47.0); Hemoglobin 13.6 g/dL (12.0-15.0); Mean Corpuscular HGB Conc 35.1 g/dl (32-36); Mean Corpuscular Hemoglobin 29.9 pg (26-34); Mean Corpuscular Volume 85.1 fl (80-100); Mean Platelet Volume 10.7 fl (7.4-10.4); Platelet Count Result 181 k/mm3 (150-375); Red Blood Count 4.55 M/mm3 (4.2-5.4); Red Cell Distribution Width 12.3 % (11.5-14.5); White Blood Count 8.9 K/mm3 (4.5-10.0)
[2021-11-20 05:27] LABS: Anion Gap 7 mmol/L (8-16); Blood Urea Nitrogen 12 mg/dL (7-17); Calcium 8.6 mg/dL (8.4-10.2); Carbon Dioxide 27 mmol/L (22-30); Chloride 99 mmol/L (98-107); Estimated CRCL calculation 55 ml/min; Estimated Glomerular Filt Rate 59; Glucose 125 mg/dL (65-110); Magnesium 1.6 mg/dL (1.6-2.3); Potassium 3.5 mmol/L (3.4-5.0); Sodium 133 mmol/L (137-145)
[2021-11-20 05:46] VITALS: BP 148/81; PULSE 79; RESP 16; TEMP 36.8; O2SAT 100
[2021-11-20 08:45] LABS: Glucose Point of Care 122 mg/dl (65-105)
[2021-11-20] MEDS: ATORVASTATIN 10 MG TABLET PO (09:08)
[2021-11-20] MEDS: PANTOPRAZOLE 40 MG TABLET PO (09:08)
[2021-11-20 11:15] VITALS: BP 137/82; PULSE 79; RESP 15; TEMP 36.1; O2SAT 100
[2021-11-20 11:16] LABS: Glucose Point of Care 102 mg/dl (65-105)
[2021-11-20] MEDS: LACTATED RINGERS 1,000 ML 150 ML IV CONT (11:22)
--- NOTE | 2021-11-20 12:01 | WPDANESEPPF ---
Anes - Initial Pre Proc Eval Procedure: Operation Date: 11/20/21 12:30 Proposed Procedures p Esophagogastroduodenoscopy - You Weems MD Date/Time: 11/20/21 12:01 Surgeon: Elisabet Hartley DO Pre Op Diagnosis: ARELY,Hyponatremia,Hypokalemia,dehydration,Orthostat Patient Data Age: 51 Gender: F Height: 1.57 m Weight: 70.2 kg Last Vital Signs Temp 97 F L 11/20/21 11:15 Pulse 79 11/20/21 11:15 Resp 15 11/20/21 11:15 BP 137/82 11/20/21 11:15 Pulse Ox 100 11/20/21 11:15 O2 Del Method Room Air 11/20/21 11:15 Allergies Allergy/AdvReac Type Severity Reaction Status Date / Time quinine Allergy Rash Verified 11/17/21 16:23 Home Medications Medication Instructions Recorded Confirmed Type aspirin 81 mg tablet,delayed 81 mg PO QAM #30 tabs 09/07/19 11/17/21 Rx release atorvastatin 10 mg tablet 10 mg PO DAILY #30 tabs 09/07/19 11/17/21 Rx blood sugar diagnostic (Blood #50 ea 09/07/19 11/17/21 Rx Glucose Test strips) blood-glucose meter #1 ea 09/07/19 11/17/21 Rx famotidine 20 mg tablet 20 mg PO Q12HR #40 tabs 09/07/19 11/17/21 Rx lisinopril 5 mg tablet 5 mg PO QAM #30 tabs 09/07/19 11/17/21 Rx metformin 500 mg tablet 500 mg PO BID #40 tabs 09/07/19 11/17/21 Rx atenolol 50 mg-chlorthalidone 25 1 tablet PO DAILY 09/25/21 11/17/21 History mg tablet ondansetron 4 mg disintegrating 4 mg PO Q8H PRN nausea and 11/14/21 11/17/21 Rx tablet vomiting #15 tabs insulin glargine 100 unit/mL (3 20 unit subcut HS 11/17/21 11/17/21 History mL) subcutaneous pen (Lantus Solostar U-100 Insulin) tirzepatide 5 mg/0.5 mL 5 mg subcut WEEKLY 11/17/21 11/17/21 History subcutaneous pen injector (Mounjaro) Laboratory Tests 11/19/21 11/19/21 11/19/21 12:07 17:12 20:04 WBC RBC Hgb Hct MCV MCH MCHC RDW Plt Count MPV Sodium Potassium Chloride Carbon Dioxide Anion Gap BUN Creatinine Estim Creat Clear Calc Estimated GFR Glucose POC Capillary Glucose 180 mg/dl H mg/dl 157 mg/dl H mg/dl 177 mg/dl H mg/dl (65-105) (65-105) (65-105) Calcium Magnesium 11/20/21 11/20/21 11/20/21 04:59 04:59 08:42 WBC 8.9 K/mm3 K/mm3 (4.5-10.0) RBC 4.55 M/mm3 M/mm3 (4.2-5.4) Hgb 13.6 g/dL g/dL (12.0-15.0) Hct 38.7 % % (37.0-47.0) MCV 85.1 fl fl (80-100) MCH 29.9 pg pg (26-34) MCHC 35.1 g/dl g/dl (32-36) RDW 12.3 % % (11.5-14.5) Plt Count 181 k/mm3 k/mm3 (150-375) MPV 10.7 fl H fl (7.4-10.4) Sodium 133 mmol/L L mmol/L (137-145) Potassium 3.5 mmol/L mmol/L (3.4-5.0) Chloride 99 mmol/L mmol/L (98-107) Carbon Dioxide 27 mmol/L mmol/L (22-30) Anion Gap 7 mmol/L L mmol/L (8-16) BUN 12 mg/dL mg/dL (7-17) Creatinine 1.00 mg/dL mg/dL (0.7-1.0) Estim Creat Clear Calc 55 ml/min ml/min Estimated GFR 59 (59 - ) Glucose 125 mg/dL H mg/dL (65-110) POC Capillary Glucose 122 mg/dl H mg/dl (65-105) Calcium 8.6 mg/dL mg/dL (8.4-10.2) Magnesium 1.6 mg/dL mg/dL (1.6-2.3) 11/20/21 11:11 WBC RBC Hgb Hct MCV MCH MCHC RDW Plt Count MPV Sodium Potassium Chloride Carbon Dioxide Anion Gap BUN Creatinine Estim Creat Clear Calc Estimated GFR Glucose POC Capillary Glucose 102 mg/dl mg/dl (65-105) Calcium Magnesium Patient hx anesthesia problems: none Family hx anesthesia problems: none Results Review: All pre-operati
[2021-11-20 13:13] VITALS: BP 118/73; PULSE 77; RESP 16; O2SAT 100
[2021-11-20 13:23] VITALS: BP 118/78; PULSE 75; RESP 21; O2SAT 100
[2021-11-20 13:27] LABS: Glucose Point of Care 96 mg/dl (65-105)
--- NOTE | 2021-11-20 13:29 | PC.NURSE ---
On 11/20/21, the student, [Jameson Brooks], provided care and completed [facility] documentation on this patient. I have reviewed the student's documentation and agree with the findings.
[2021-11-20 13:33] VITALS: BP 145/98; PULSE 76; RESP 18; O2SAT 100
[2021-11-20] MEDS: ENOXAPARIN 40 MG/0.4 ML SYRINGE SUB-Q (13:56)
[2021-11-20] MEDS: ASPIRIN 81 MG ENTERIC TABLET PO (13:56)
[2021-11-20 14:00] VITALS: BP 148/85; PULSE 76; RESP 16; TEMP 36.7; O2SAT 100
[2021-11-20 14:43] LABS: Glucose Point of Care 116 mg/dl (65-105)
--- NOTE | 2021-11-20 16:31 | PM.DS ---
DS: Admitting Diagnosis Discharge Date 11/20/21 Admitting Diagnosis (1) Syncope and collapse: (2) HTN (hypertension) with goal to be determined: (3) Hyperlipidemia: (4) Acute dehydration: (5) Acute hypokalemia: (6) Acute hyponatremia: (7) ARELY (acute kidney injury): (8) Nausea & vomiting: (9) Diabetes mellitus: DS: Discharge Diagnosis Discharge Diagnosis (1) Dysphagia: Code(s): R13.10 - Dysphagia, unspecified Status: Acute (2) Syncope and collapse: Code(s): R55 - Syncope and collapse Status: Acute (3) HTN (hypertension) with goal to be determined: Code(s): I10 - Essential (primary) hypertension Status: Acute (4) Hyperlipidemia: Code(s): E78.5 - Hyperlipidemia, unspecified Status: Acute (5) Acute dehydration: Code(s): E86.0 - Dehydration Status: Acute (6) Acute hypokalemia: Code(s): E87.6 - Hypokalemia Status: Acute (7) ARELY (acute kidney injury): Code(s): N17.9 - Acute kidney failure, unspecified Status: Acute (8) Acute hyponatremia: Code(s): E87.1 - Hypo-osmolality and hyponatremia Status: Acute (9) Orthostatic syncope: Code(s): I95.1 - Orthostatic hypotension Status: Acute (10) Hypokalemia: Code(s): E87.6 - Hypokalemia Status: Acute (11) Diabetes mellitus: Code(s): E11.9 - Type 2 diabetes mellitus without complications Status: Acute (12) Nausea & vomiting: Code(s): R11.2 - Nausea with vomiting, unspecified Status: Acute (13) Tobacco dependence: Code(s): F17.200 - Nicotine dependence, unspecified, uncomplicated Status: Acute DS: Summary Hospital Course Reason for hospitalization: This is a 51-year-old female patient who has a history of diabetes and hypertension.? The patient stated that she passed out twice yesterday.? Her was nearby and reports a brief loss of consciousness.? The patient also stated that she took some oxycodone today for pain to her gum line.? She recently had oral surgery.? The patient has a abrasion to her right brow line from falling.? She did hit her head on the 2nd fall.? She denies having any visual changes or dizziness prior to the syncopal episode.? She has no back pain.? The patient has been here on 2 previous occasions in the emergency room on 11/13 and for acute nausea and vomiting gastritis and dehydration.? The patient recently was started on a new medication mounjaro.? The patient stated that she has been losing with this medication and she has been losing her appetite and she has had some nausea and diarrhea.? I reviewed the side effects with the patient and includes nausea diarrhea appetite decreased vomiting and upset stomach.? It can also lead to acute kidney injury.? The patient stated that her has been trying to get her to stop taking this medication.? Her white count was noted to be 14.4.? Her potassium was found to be 2.7.? And her sodium 123.? Blood sugars 162.? The patient stated that her blood sugars have been in the 100s typically.? Patient's creatinine is 1.3 anion gap is 10.? Lactic was normal.? The patient was started on IV fluids in the emergency room, she was given potassium, and Zofran.? Her head CT was read as no acute intracranial process.? Cervical spine CT was read as no acute fracture or traumatic malalignment in the cervical spine.? The patient is being admitted to observation status on the date of service of 11/17/2021 Hospital Course: Pt was admitted and treated w IVFs and her dehydration and renal fxn improved. Her potassium and magnesium were repleted. c/s placed to GI for her ongoing vomiting. She underwent EGD w normal findings. pt was subsequently discharged home in stable condition tolerating PO w indications to f/u w GI and her PCP. She is advised to avoid mounjaro and narotic medications w activity. Status at Discharge Cognitive/behavioral status at discharge:
--- NOTE | 2021-11-20 16:43 | PM.DS ---
DS: Admitting Diagnosis Discharge Date 11/20/21 Admitting Diagnosis (1) Syncope and collapse: ?Code(s): R55 - Syncope and collapse ?Status:?Acute (2) HTN (hypertension) with goal to be determined: ?Code(s): I10 - Essential (primary) hypertension ?Status:?Acute (3) Hyperlipidemia: ?Code(s): E78.5 - Hyperlipidemia, unspecified ?Status:?Acute ? ? (4) Acute dehydration: ?Code(s): E86.0 - Dehydration ?Status:?Acute (5) Acute hypokalemia: ?Code(s): E87.6 - Hypokalemia ?Status:?Acute ? ? (6) Acute hyponatremia: ?Code(s): E87.1 - Hypo-osmolality and hyponatremia ?Status:?Acute (7) ARELY (acute kidney injury): ?Code(s): N17.9 - Acute kidney failure, unspecified ?Status:?Acute ? (8) Nausea & vomiting: ?Code(s): R11.2 - Nausea with vomiting, unspecified ?Status:?Acute (9) Diabetes mellitus: ?Code(s): E11.9 - Type 2 diabetes mellitus without complications ?Status:?Acute DS: Summary Time Spent with Patient Time attestation: Total time spent providing and/or coordinating discharge services: DS: Data Data Completed and Pending Labs on day of discharge: Labs from last 24 hours 11/20/21 11/20/21 11/20/21 14:40 13:24 11:11 WBC RBC Hgb Hct MCV MCH MCHC RDW Plt Count MPV Sodium Potassium Chloride Carbon Dioxide Anion Gap BUN Creatinine Estim Creat Clear Calc Estimated GFR Glucose POC Capillary Glucose 116 H 96 102 Calcium Magnesium 11/20/21 11/20/21 11/20/21 08:42 04:59 04:59 WBC 8.9 RBC 4.55 Hgb 13.6 Hct 38.7 MCV 85.1 MCH 29.9 MCHC 35.1 RDW 12.3 Plt Count 181 MPV 10.7 H Sodium 133 L Potassium 3.5 Chloride 99 Carbon Dioxide 27 Anion Gap 7 L BUN 12 Creatinine 1.00 Estim Creat Clear Calc 55 Estimated GFR 59 Glucose 125 H POC Capillary Glucose 122 H Calcium 8.6 Magnesium 1.6 11/19/21 11/19/21 20:04 17:12 WBC RBC Hgb Hct MCV MCH MCHC RDW Plt Count MPV Sodium Potassium Chloride Carbon Dioxide Anion Gap BUN Creatinine Estim Creat Clear Calc Estimated GFR Glucose POC Capillary Glucose 177 H 157 H Calcium Magnesium Discharge Plan Discharge Attending physician on discharge: Poly Gray Consulting providers: You Weems Discharging Clinician: Poly Gray Anticipated Discharge Date/Time: 11/20/21 16:27 Patient Disposition: Home, Self-Care Activity: as tolerated Diet: bland Discharge Instructions: soft bland diet small portions eat slowly and follow swallowing recommendations follow up w PCP Patient Instructions: Antibiotic Form Stand Alone Forms: General Discharge Information Follow-up/Referrals: Shelia,NISHA Lei [Primary Care Provider] - You Weems MD [Physician] - Discharge Medications: New pantoprazole 40 mg Tablet,Delayed Release (Dr/Ec) 40 mg PO QAM Qty: 30 0RF ondansetron 4 mg tablet,disintegrating 4 mg PO Q8H PRN (Reason: nausea and vomiting) Qty: 14 0RF Continued atenolol-chlorthalidone 50-25 mg tablet 1 tablet PO DAILY ondansetron 4 mg tablet,disintegrating 4 mg PO Q8H PRN (Reason: nausea and vomiting) Qty: 15 0RF insulin glargine [Lantus Solostar U-100 Insulin] 100 unit/mL (3 mL) insulin pen 20 unit SUBCUT HS Mounjaro 5 mg/0.5 mL pen injector 5 mg SUBCUT WEEKLY Rx Instructions: TAKES ON SUNDAYS atorvastatin 10 mg Tablet 10 mg PO DAILY Qty: 30 0RF aspirin 81 mg Tablet,Delayed Release (Dr/Ec) 81 mg PO QAM Qty: 30 0RF famotidine 20 mg Tablet 20 mg PO Q12HR Qty: 40 0RF lisinopril 5 mg Tablet 5 mg PO QAM Qty: 30 0RF metformin 500 mg tablet 500 mg PO BID Qty: 40 0RF (DME) Blood Glucose Test Strip See Rx Instructions .ROUTE .
[2021-11-20] MEDS: POTASSIUM CHLORIDE 20 MEQ TABLET 40 MEQ PO (16:51)
[2021-11-20] MEDS: MAGNESIUM SULF 2 GM/WATER 50ML 2 GM/50 ML BAG IVPB (16:51)
[2021-11-20 17:27] LABS: Glucose Point of Care 174 mg/dl (65-105)
== END 2021-11-20 18:49 | disposition home or self-care (01) | DRG 683 ==
LOC: ANHED 18:32 → ANH2MED 18:55
PROVIDERS: Emergency Medicine; Family Medicine; Internal Medicine Gastroenterology; Nurse Practitioner; Physician Assistant; Admitting Provider Student in an Organized Health Care Education/Training Program; Emergency Provider Emergency Medicine; PCP Registered Nurse; Visit Provider Hospitalist
PROC: 0DJ08ZZ Inspection of Upper Intestinal Tract, Via Natural or Artificial Opening Endoscopic (ICD-10-PCS; CPT 43235; principal; 2021-11-20 12:30)
DX: N17.9 Acute kidney failure, unspecified (principal); E87.1 Hypo-osmolality and hyponatremia; I95.1 Orthostatic hypotension; I10 Essential (primary) hypertension; E86.0 Dehydration; E87.6 Hypokalemia; E11.9 Type 2 diabetes mellitus without complications; E78.5 Hyperlipidemia, unspecified; R13.10 Dysphagia, unspecified; R11.2 Nausea with vomiting, unspecified; T38.3X5A Adverse effect of insulin and oral hypoglycemic [antidiabetic] drugs, initial encounter; Z87.891 Personal history of nicotine dependence; Z23 Encounter for immunization
CPT/HCPCS: 36415; 70450; 72125; 80048; 80053; 81001; 82948; 83036; 83605; 83735; 84100; 84443; 85025; 85027; 87081; 90471; 90686; 93005; 93306; 93880; 96360; 96361; 96372; 96374; 96375; 97161; 99285; A9270; G0008; G0378; J1650; J1815; J2405; J2704; J3475; J3480; J7030; J7040; J7120

== ENCOUNTER 2021-12-22 03:05 | Emergency (ER) | payer OTHER, SELFPAY ==
[2021-12-22] VITALS (28 sets, daily range): BP systolic 132–185; BP diastolic 53–91; PULSE 74–84; RESP 13–24; TEMP 35.9; O2SAT 98–100
--- NOTE | 2021-12-22 03:25 | ED.GENADULT ---
HPI - General Adult General Chief complaint: Unspecified Stated complaint: vomiting, dizziness Time Seen by Provider: 12/22/21 03:25 History of Present Illness HPI narrative: This is a 51-year-old female presenting ED with 3 days of nausea and vomiting. patient received a shot of Ozempic on . Since then she has had multiple episodes of nausea and vomiting. She has been able to keep down food. She has also has a dull pain diffusely in her abdomen. It is 410 intensity and constant. She has never experienced pain like this before there are no exacerbating or alleviating factors. She does not report diarrhea, fever or chills. Related Data Home Medications Medication Instructions Recorded Confirmed atenolol 50 mg-chlorthalidone 25 1 tablet PO DAILY 09/25/21 11/17/21 mg tablet insulin glargine 100 unit/mL (3 20 unit subcut HS 11/17/21 11/17/21 mL) subcutaneous pen (Lantus Solostar U-100 Insulin) tirzepatide 5 mg/0.5 mL 5 mg subcut WEEKLY 11/17/21 11/17/21 subcutaneous pen injector (Mounjaro) Allergies Allergy/AdvReac Type Severity Reaction Status Date / Time quinine Allergy Rash Verified 12/22/21 03:26 Review of Systems Review of Systems: CONSTITUTIONAL: Denies night sweats. EYES: No eye pain ENT: Denies rhinorrhea CARDIOVASCULAR: Denies palpitations RESPIRATORY: Denies hemoptysis GASTROINTESTINAL: Denies hematemesis GENITOURINARY: Denies hematuria. SKIN: Denies rash MUSCULOSKELETAL: Denies myalgia. NEUROLOGIC: Denies weakness. PSYCHIATRIC: Denies delusions [facility] Past Medical History Medical History (Updated 12/22/21 @ 05:26 by Adam Calhoun MD) Acute kidney failure Diabetes mellitus HTN (hypertension) with goal to be determined Hyperlipidemia Surgical History Surgical History (Updated 11/17/21 @ 23:34 by Elisa Olivo NP) H/O section H/O eye surgery H/O oral surgery History of surgery on lower extremity right leg Family History Family History Sibling Diabetes mellitus Father Acute myocardial infarction Mother Acute myocardial infarction Social History Social History (Updated 11/17/21 @ 23:33 by Elisa Olivo NP) Social History: The patient stated that she has quit smoking. She denies alcohol. She stated she recently is smokes some marijuana to help increase her appetite. She works for [employer]. 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 Code status full code Years smoked: 34 Smoking status: Former smoker Tobacco type: cigarettes Alcohol intake: never Drinks per week: 2 Substance use: never Substance use type: does not use Gender identity (if verbalized by the patient): Female Spiritual care concerns: No Exam Narrative: APPEARANCE: Patient appears uncomfortable Head: atraumatic. EYES: EOMI, NOSE: Atraumatic NECK: Trachea midline RESPIRATORY: No increased rate of breathing CARDIOVASCULAR: RRR, ABDOMINAL: abdomen is soft, nondistended, with no guarding or rebound. Bowel sounds are present MUSCULOSKELETAl: No obvious deformities NEURO: Alert. Moving 4/4 extremities SKIN:: Warm, dry. Normal color PSYCHIATRIC: Normal affect Course Vital Signs Vital signs: Vital Signs Temperature 96.6 F L 12/22/21 03:10 Pulse Rate 79 12/22/21 03:10 Respiratory Rate 18 12/22/21 03:10 Blood Pressure 150/53 H 12/22/21 03:10 Pulse Oximetry 100 12/22/21 03:10 Oxygen Delivery Room Air 12/22/21 03:10 Temperature 96.6 F L 12/22/21 03:10 Pulse Rate 77 12/22/21 04:46 Respiratory Rate 15 12/22/21 04:46 Blood Pressure 159/70 H 12/22/21 04:46 Pulse Oximetry 100 12/22/21 04:46 Oxygen Delivery Room Air 12/22/21 03:10 Medical Decision Making [facility] Narrative Medical decision making narrative: this is a 51-year-old female presenting ED with 3 days of
[2021-12-22 04:10] LABS: Basophils Absolute Auto 0.1 K/mm3 (0.0-0.1); Basophils Percent Auto 0.4 % (0.2-1.2); Eosinophils Percent Auto 0.2 % (0-4.4); Hematocrit 40.7 % (37.0-47.0); Hemoglobin 13.6 g/dL (12.0-15.0); Immature Granulocyte Absolute 0.05 K/mm3 (0.00-0.031); Immature Granulocyte Percent A 0.4 % (0-0.5); Lymphocytes Absolute Auto 1.67 K/mm3 (0.9-3.2); Lymphocytes Percent Auto 14.2 % (18.3-44.2); Mean Corpuscular HGB Conc 33.4 g/dl (32-36); Mean Corpuscular Hemoglobin 30.1 pg (26-34); Mean Platelet Volume 11.2 fl (7.4-10.4); Monocytes Absolute Auto 0.5 K/mm3 (0.1-0.6); Monocytes Percent Auto 4.3 % (2.6-8.5); Neutrophils Absolute Auto 9.4 K/mm3 (1.3-6.7); Neutrophils Percent Auto 80.5 % (45.5-73.1); Platelet Count Result 269 k/mm3 (150-375); Red Blood Count 4.52 M/mm3 (4.2-5.4); Red Cell Distribution Width 14.1 % (11.5-14.5); White Blood Count 11.7 K/mm3 (4.5-10.0)
[2021-12-22] MEDS: SODIUM CHLORIDE 0.9% IV 2,000 ML 999 ML IV CONT (04:12)
[2021-12-22] MEDS: ONDANSETRON INJ 4 MG/2 ML VIAL IV PUSH (04:18)
[2021-12-22 04:20] LABS: Alanine Aminotransferase 28 U/L (6-35); Albumin Level 4.7 g/dL (3.5-5.1); Alkaline Phosphatase 94 U/L (38-126); Anion Gap 20 mmol/L (8-16); Aspartate Amino Transferase 24 U/L (14-36); Bilirubin,Total 0.8 mg/dL (0.2-1.3); Blood Urea Nitrogen 35 mg/dL (7-17); Calcium 9.2 mg/dL (8.4-10.2); Carbon Dioxide 25 mmol/L (22-30); Chloride 93 mmol/L (98-107); Estimated CRCL calculation 46 ml/min; Estimated Glomerular Filt Rate 48; Glucose 273 mg/dL (65-110); Lipase 301 U/L (23-300); Magnesium 1.9 mg/dL (1.6-2.3); Potassium 3.3 mmol/L (3.4-5.0); Sodium 138 mmol/L (137-145)
[2021-12-22] MEDS: POTASSIUM CHLORIDE 20 MEQ TABLET 40 MEQ PO (05:26)
[2021-12-22] MEDS: PROCHLORPERAZINE EDISYLATE 10 MG/2 ML VIAL IV PUSH (05:26)
== END 2021-12-22 06:21 | disposition home or self-care (01) ==
PROVIDERS: Emergency Provider Emergency Medicine; PCP Registered Nurse
DX: R11.2 Nausea with vomiting, unspecified (principal); T38.3X5A Adverse effect of insulin and oral hypoglycemic [antidiabetic] drugs, initial encounter; E78.5 Hyperlipidemia, unspecified; E11.9 Type 2 diabetes mellitus without complications; I10 Essential (primary) hypertension; Z87.891 Personal history of nicotine dependence; Z79.84 Long term (current) use of oral hypoglycemic drugs; Z79.4 Long term (current) use of insulin; Z79.85 Long-term (current) use of injectable non-insulin antidiabetic drugs
CPT/HCPCS: 36415; 80053; 83690; 83735; 85025; 96361; 96374; 96375; 99284; A9270; J0780; J2405; J7030

== ENCOUNTER 2021-12-23 17:46 | Observation (INO) | payer OTHER, SELFPAY ==
--- NOTE | ~2021-12-23 | XR_ITS ---
EXAMINATION: XR chest 1V portable Exam Date/Time: 12/23/2021 21:40 APPLICATION SUPPORT HISTORY: syncope. VOMITING X 1 WK. WEAKNESS Comparison: None available. RESULT: Lines, tubes, and devices: None. Lungs and pleura: Clear. Cardiomediastinal silhouette: Unremarkable. Other: No acute osseous or upper abdominal finding. IMPRESSION: No acute cardiopulmonary process. Reviewed, dictated and finalized at location K. ICATION SUPPORT
[2021-12-23 17:55] VITALS: BP 135/87; PULSE 92; RESP 20; TEMP 36.4; O2SAT 100
--- NOTE | 2021-12-23 21:33 | ED.GENADULT ---
HPI - General Adult General Chief complaint: Nausea/Vomiting/Diarrhea Stated complaint: VOMITING/DIZZINESS Time Seen by Provider: 12/23/21 21:22 History of Present Illness HPI narrative: This is a 51-year-old female presenting ED with nausea and vomiting. She was seen here yesterday morning for similar symptoms. She recently got a shot of Ozempic and since then has not been able to tolerate food or liquid. She was evaluated yesterday by myself and was dehydrated. She was given some fluids and electrolyte repletion and a prescription for antiemetics. She passed p.o. challenge at that time.She did not fill her prescription for the anti-emetics. She refuses to take them. Today she is dizzy and had 2 syncopal episodes at home and her insisted she come to the hospital to be admitted. Patient is not really eating food today and has been vomiting throughout the day. Related Data Home Medications Medication Instructions Recorded Confirmed atenolol 50 mg-chlorthalidone 25 1 tablet PO DAILY 09/25/21 11/17/21 mg tablet insulin glargine 100 unit/mL (3 20 unit subcut HS 11/17/21 11/17/21 mL) subcutaneous pen (Lantus Solostar U-100 Insulin) tirzepatide 5 mg/0.5 mL 5 mg subcut WEEKLY 11/17/21 11/17/21 subcutaneous pen injector (Mounjaro) Allergies Allergy/AdvReac Type Severity Reaction Status Date / Time quinine Allergy Rash Verified 12/22/21 03:26 Review of Systems Review of Systems: CONSTITUTIONAL: Denies night sweats. EYES: No eye pain ENT: Denies rhinorrhea CARDIOVASCULAR: Denies palpitations RESPIRATORY: Denies hemoptysis GASTROINTESTINAL: Denies hematemesis GENITOURINARY: Denies hematuria. SKIN: Denies rash MUSCULOSKELETAL: Denies myalgia. NEUROLOGIC: Denies weakness. PSYCHIATRIC: Denies delusions PMFSH Past Medical History Medical History Acute kidney failure Diabetes mellitus HTN (hypertension) with goal to be determined Hyperlipidemia Surgical History Surgical History H/O section H/O eye surgery H/O oral surgery History of surgery on lower extremity right leg Family History Family History Sibling Diabetes mellitus Father Acute myocardial infarction Mother Acute myocardial infarction Social History Social History Social History: The patient stated that she has quit smoking. She denies alcohol. She stated she recently is smokes some marijuana to help increase her appetite. She works for [employer]. 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 Code status full code Years smoked: 34 Smoking status: Former smoker Tobacco type: cigarettes Alcohol intake: never Drinks per week: 2 Substance use: never Substance use type: does not use Gender identity (if verbalized by the patient): Female Spiritual care concerns: No Exam Narrative: APPEARANCE: No apparent distress. Head: atraumatic. EYES: EOMI, NOSE: Atraumatic NECK: Trachea midline RESPIRATORY: No increased rate of breathing, clear to auscultation bilateral CARDIOVASCULAR: RRR, ABDOMINAL: is soft, nondistended, with no guarding or rebound MUSCULOSKELETAl: No obvious deformities NEURO: Alert. Moving 4/4 extremities SKIN:: Warm, dry. Normal color PSYCHIATRIC: Normal affect Course Vital Signs Vital signs: Vital Signs Temperature 97.6 F 12/23/21 17:55 Pulse Rate 92 12/23/21 17:55 Respiratory Rate 20 12/23/21 17:55 Blood Pressure 135/87 12/23/21 17:55 Pulse Oximetry 100 12/23/21 17:55 Oxygen Delivery Room Air 12/23/21 17:55 Temperature 97.6 F 12/23/21 17:55 Pulse Rate 92 12/23/21 17:55 Respiratory Rate 20 12/23/21 17:55 Blood Pressure 135/87
--- NOTE | 2021-12-23 21:34 | ECG_ITS ---
Measurements Intervals [place] Rate: 80 P: -14 AK: 111 QRS: 45 QRSD: 94 T: 60 QT: 362 QTc: 419 Interpretive Statements SINUS RHYTHM WITH SHORT AK INTERVAL BORDERLINE ST-T WAVE ABNORMALITY- HIGH LATERAL LEADS BASELINE ARTIFACT- II, III, AVR, AVL, AVF, V1 BORDERLINE ECG COMPARED TO ECG 11/17/2021 16:26:47 PROLONGED QT INTERVAL NO LONGER PRESENT Electronically Signed On 12-24-2021 6:50:42 JUNIOR BUSINESS ANALYST by Bg Faulkner D.O.
[2021-12-23] MEDS: ONDANSETRON INJ 4 MG/2 ML VIAL IV PUSH (21:43)
[2021-12-23] MEDS: FAMOTIDINE 20 MG/2 ML VIAL IV PUSH (21:43)
[2021-12-23] MEDS: SODIUM CHLORIDE 0.9% IV 2,000 ML 999 ML IV CONT (21:44)
[2021-12-23 21:45] LABS: Basophils Absolute Auto 0.1 K/mm3 (0.0-0.1); Basophils Percent Auto 0.4 % (0.2-1.2); Eosinophils Percent Auto 0.2 % (0-4.4); Hematocrit 43.8 % (37.0-47.0); Hemoglobin 14.9 g/dL (12.0-15.0); Immature Granulocyte Absolute 0.05 K/mm3 (0.00-0.031); Immature Granulocyte Percent A 0.4 % (0-0.5); Lymphocytes Absolute Auto 2.77 K/mm3 (0.9-3.2); Mean Corpuscular Hemoglobin 30.3 pg (26-34); Mean Corpuscular Volume 89.2 fl (80-100); Mean Platelet Volume 10.5 fl (7.4-10.4); Monocytes Absolute Auto 0.9 K/mm3 (0.1-0.6); Monocytes Percent Auto 7.1 % (2.6-8.5); Neutrophils Absolute Auto 8.3 K/mm3 (1.3-6.7); Neutrophils Percent Auto 68.9 % (45.5-73.1); Platelet Count Result 259 k/mm3 (150-375); Red Blood Count 4.91 M/mm3 (4.2-5.4); Red Cell Distribution Width 13.3 % (11.5-14.5); White Blood Count 12.1 K/mm3 (4.5-10.0)
[2021-12-23 21:56] LABS: Alanine Aminotransferase 29 U/L (6-35); Albumin Level 4.6 g/dL (3.5-5.1); Alkaline Phosphatase 90 U/L (38-126); Anion Gap 15 mmol/L (8-16); Aspartate Amino Transferase 31 U/L (14-36); Blood Urea Nitrogen 27 mg/dL (7-17); Calcium 9.2 mg/dL (8.4-10.2); Carbon Dioxide 25 mmol/L (22-30); Chloride 95 mmol/L (98-107); Estimated CRCL calculation 68 ml/min; Estimated Glomerular Filt Rate > 60; Glucose 229 mg/dL (65-110); Lipase 154 U/L (23-300); Potassium 3.4 mmol/L (3.4-5.0); Sodium 135 mmol/L (137-145)
[2021-12-23 22:15] LABS: Troponin I 0.013 ng/mL (0.000-0.034)
[2021-12-24] VITALS (7 sets, daily range): BP systolic 116–193; BP diastolic 68–99; PULSE 66–84; RESP 14–16; TEMP 35.8–36.9; O2SAT 98–100; BMI 27.5
[2021-12-24 00:03] LABS: Influenza A QL RT-PCR Negative (Negative); Influenza B QL RT-PCR Negative (Negative); SARS-CoV-2 RNA PCR Negative
--- NOTE | 2021-12-24 01:34 | ADMGEN ---
This patient, Vangie King, was admitted to [facility] Surg Room 300-01. Patient/family oriented to hospital policies and general routines including ID bracelet, bed and alarms, visiting hours, pain management, procedures, bathroom and other care routines, personal items, smoking policy, room service/diet, and visiting hours. Information on how to activate the Rapid Response Team has been discussed. Patient/Family are encouraged to report perceived risks to care and to ask questions if they do not understand what they are told or what they should do.
[2021-12-24 02:19] LABS: Troponin I 0.013 ng/mL (0.000-0.034)
[2021-12-24 07:43] LABS: Glucose Point of Care 195 mg/dl (65-105)
[2021-12-24] MEDS: ONDANSETRON INJ 4 MG/2 ML VIAL IV PUSH (08:24)
[2021-12-24] MEDS: ATORVASTATIN 10 MG TABLET PO (08:26)
[2021-12-24] MEDS: lisinopriL 5 MG TABLET PO (08:26)
[2021-12-24] MEDS: atenoloL 50 MG TABLET PO (08:26)
[2021-12-24] MEDS: CHLORTHALIDONE 25 MG TABLET PO (08:26)
[2021-12-24] MEDS: ASPIRIN 81 MG ENTERIC TABLET PO (08:26)
--- NOTE | 2021-12-24 08:44 | PM.IMHP ---
H&P: HPI History of Present Illness Date/Time: 12/24/21 08:44 Chief Complaint: Nausea, vomiting, dizziness Narrative: Vangie King is a 51 yo female with insulin-dependent diabetes mellitus, hypertension, and hyperlipidemia. She presented to the emerged department for evaluation of persistent nausea, vomiting, and worsening dizziness. The patient was seen in the emergency department at this facility on 12/22/2021 for similar symptoms. She was prescribed antiemetics, replete electrolytes and given IV fluids. She did not fill her antiemetic prescription. She did pass a p.o. challenge prior to discharge home per notes, however she return to the emergency department on 12/23 for persistent symptoms. She also endorsed associated dizziness and 1 episode of ?just went down onto my knees?. She denies syncope or near-syncope. She does endorse generalized weakness. She has not been able to take any food or liquids. The patient reportedly started Ozempic on of last week. She reports her symptoms started on Thursday. Her last BM was on Thursday and grossly normal. She does report a complaints of belching and abdominal bloating. She thinks that she may have had a temperature as she felt warm the could not find a thermometer. Her emesis is food like and ?foamy?. She denies melena, hematochezia, hematemesis, chest pain, shortness a breath, palpitations, unilateral extremity weakness, slurred speech, dysuria, flank pain, vision changes or headache. In the [facility] ED her vitals were temp 97.6? F, heart rate 92, respirations 20, BP 135/87, SpO2 100% on room air. Lab work was significant for mild leukocytosis WBC 12.1 without shift, hemoglobin 14.9, hematocrit 43.8%, sodium 135, potassium 3.4, chloride 95, BUN 27, creatinine 0.8, glucose 229, lipase 154, TSH 0.59 and troponin 0.013 x 2. Chest x-ray showed no acute pulmonary disease. EKG showed sinus rhythm at 80 beats per minute without ischemic changes. She was treated with famotidine 20 mg IV x1, Zofran 4 mg IV x1 and 2 L normal saline. She was admitted overnight for further monitoring. Review of Systems Review of Systems: All systems reviewed & are unremarkable except as noted in HPI and below PMFSH Past Medical History Medical History Diabetes mellitus HTN (hypertension) with goal to be determined Hyperlipidemia Surgical History Surgical History H/O section H/O eye surgery H/O oral surgery History of surgery on lower extremity right leg Family History Family History (Updated 12/24/21 @ 17:14 by Yasmine Tatum APRN) Sibling Diabetes mellitus Lung cancer Father Acute myocardial infarction Mother Acute myocardial infarction Social History Social History Social History: The patient stated that she has quit smoking. She denies alcohol. She stated she recently is smokes some marijuana to help increase her appetite. She works for [employer]. 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 Code status full code Years smoked: 34 Smoking status: Never smoker Tobacco type: cigarettes Alcohol intake: never Drinks per week: 2 Substance use: current Substance use type: marijuana Lack of Transportation: No Lack of Food: Never True Current Housing: I Have Housing Concerned About Future Housing: No Difficulty Paying Gas/Electric Bills: No Difficulty Paying for Meds: No Currently Unemployed: No Education: High School Diploma/GED Difficulty w/ Childcare or Family Care: No Living arrangements: with family Occupation/Education: occupation Gender identity (if verbalized by the patient): Female Spiritual care concerns: No Meds Home Medications and Allergies Home Medications
[2021-12-24 09:23] LABS: Hemoglobin A1C 8.4 % (<5.7)
[2021-12-24 10:15] LABS: Thyroid Stimulating Hormone Reflex 0.599 uIU/mL (0.465-4.68)
[2021-12-24 11:27] LABS: Glucose Point of Care 206 mg/dl (65-105)
[2021-12-24] MEDS: METOCLOPRAMIDE HCL INJ 10 MG/2 ML VIAL 5 MG IV PUSH ×2 (11:51→17:19)
[2021-12-24] MEDS: PANTOPRAZOLE SODIUM IV 40 MG VIAL IV PUSH (11:51)
[2021-12-24] MEDS: INSULIN ASPART (*BKC) 100 UNITS/ML SUB-Q ×2 (11:52→17:21)
[2021-12-24 16:42] LABS: Glucose Point of Care 211 mg/dl (65-105)
[2021-12-24] MEDS: INSULIN GLARGINE (*BKC) 100 UNITS/ML 20 UNITS SUB-Q (21:01)
[2021-12-24 21:19] LABS: Glucose Point of Care 169 mg/dl (65-105)
[2021-12-25] MEDS: METOCLOPRAMIDE HCL INJ 10 MG/2 ML VIAL 5 MG IV PUSH ×3 (00:22→11:26)
[2021-12-25 05:19] VITALS: BP 121/74; PULSE 63; RESP 14; TEMP 36.5; O2SAT 98
[2021-12-25 06:30] LABS: Basophils Absolute Auto 0.1 K/mm3 (0.0-0.1); Basophils Percent Auto 0.7 % (0.2-1.2); Eosinophils Absolute Auto 0.1 K/mm3 (0-0.3); Eosinophils Percent Auto 0.7 % (0-4.4); Hematocrit 43.7 % (37.0-47.0); Immature Granulocyte Absolute 0.06 K/mm3 (0.00-0.031); Immature Granulocyte Percent A 0.6 % (0-0.5); Lymphocytes Percent Auto 38.9 % (18.3-44.2); Mean Corpuscular HGB Conc 34.3 g/dl (32-36); Mean Corpuscular Hemoglobin 30.2 pg (26-34); Mean Corpuscular Volume 87.9 fl (80-100); Monocytes Absolute Auto 0.8 K/mm3 (0.1-0.6); Neutrophils Absolute Auto 5.4 K/mm3 (1.3-6.7); Neutrophils Percent Auto 51.1 % (45.5-73.1); Platelet Count Result 291 k/mm3 (150-375); Red Blood Count 4.97 M/mm3 (4.2-5.4); Red Cell Distribution Width 13.2 % (11.5-14.5); White Blood Count 10.6 K/mm3 (4.5-10.0)
[2021-12-25 06:44] LABS: Alanine Aminotransferase 28 U/L (6-35); Albumin Level 4.6 g/dL (3.5-5.1); Alkaline Phosphatase 88 U/L (38-126); Anion Gap 13 mmol/L (8-16); Aspartate Amino Transferase 28 U/L (14-36); Bilirubin,Total 1.3 mg/dL (0.2-1.3); Blood Urea Nitrogen 25 mg/dL (7-17); Calcium 9.3 mg/dL (8.4-10.2); Carbon Dioxide 27 mmol/L (22-30); Chloride 93 mmol/L (98-107); Estimated CRCL calculation 50 ml/min; Estimated Glomerular Filt Rate 53; Glucose 172 mg/dL (65-110); Potassium 2.6 mmol/L (3.4-5.0); Sodium 133 mmol/L (137-145)
[2021-12-25] MEDS: POTASSIUM CHLORIDE 20 MEQ TABLET 40 MEQ PO ×2 (07:03→11:24)
[2021-12-25 07:34] LABS: Glucose Point of Care 208 mg/dl (65-105)
[2021-12-25 08:27] VITALS: O2SAT 97
[2021-12-25] MEDS: CHLORTHALIDONE 25 MG TABLET PO (08:42)
[2021-12-25] MEDS: ASPIRIN 81 MG ENTERIC TABLET PO (08:42)
[2021-12-25] MEDS: ATORVASTATIN 10 MG TABLET PO (08:42)
[2021-12-25 08:43] VITALS: PULSE 71
[2021-12-25] MEDS: INSULIN ASPART (*BKC) 100 UNITS/ML SUB-Q ×3 (08:43→17:11)
[2021-12-25] MEDS: PANTOPRAZOLE SODIUM IV 40 MG VIAL IV PUSH (08:43)
[2021-12-25] MEDS: atenoloL 50 MG TABLET PO (08:43)
[2021-12-25] MEDS: lisinopriL 5 MG TABLET PO (08:44)
[2021-12-25 11:11] LABS: Glucose Point of Care 279 mg/dl (65-105)
[2021-12-25 14:00] VITALS: BP 118/74; PULSE 70; RESP 18; TEMP 36; O2SAT 100
--- NOTE | 2021-12-25 15:15 | PM.IMPN ---
Progress Note: A&P Assessment and Plan (1) Drug side effects: Code(s): T88.7XXA - Unspecified adverse effect of drug or medicament, initial encounter Status: Acute Assessment and Plan: Patient relates recently started on Ozempic and reports acute nausea and vomiting the following day. She also reports taking Mounjaro in the past with similar symptoms. Symptoms may be secondary to delayed gastric emptying from medication. Reglan 10 mg PO ACHS Advance to diabetic diet. Ozempic on hold (2) Nausea & vomiting: Qualifiers: Vomiting type: unspecified Qualified Code(s): R11.2 - Nausea with vomiting, unspecified Code(s): R11.2 - Nausea with vomiting, unspecified Status: Acute Assessment and Plan: Secondary to above. Continue antiemetics. (3) HTN (hypertension) with goal to be determined: Code(s): I10 - Essential (primary) hypertension Status: Chronic Assessment and Plan: Blood pressure well controlled today. Continue home lisinopril. 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 A1c 8.4% Accu-Cheks a.c. HS with aspart moderate scale insulin no correction Continue Lantus 20 units at HS Patient will likely need alternative agent at discharge for optimal glucose control. Will further discuss prior to discharge. (5) Hypokalemia: Code(s): E87.6 - Hypokalemia Status: Acute Assessment and Plan: Potassium 2.6 this morning Supplement with PO potassium Recheck this afternoon to ensure remaining stable Check magnesium Subjective Date/time seen: 12/25/21 15:15 Interval history: Date of service: 12/25/2021 Vangie King is a 51-year-old female with a history of hypertension, hyperlipidemia, and type 2 diabetes mellitus who is seen in follow-up for nausea and vomiting secondary to adverse medication reaction. She is starting to feel better today. She has been tolerating a clear liquid diet. She had 1 episode of emesis this morning and has some mild nausea but notes overall improvement compared to yesterday. She has no abdominal pain. States her last BM was 4 days ago. No urinary symptoms. Review of Systems Review of Systems: All systems reviewed & are unremarkable except as noted in HPI and below Exam Narrative: General: Well-nourished, well-appearing 51-year-old female, sitting up in bed, comfortable, NARD Neuro: awake, alert and oriented x4, speech clear, no focal neuro deficits noted HEENMT: normocephalic, atraumatic, EOMI, sclerae anicteric Respiratory: clear to auscultation bilaterally, nonlabored breathing Cardio: regular rate, regular rhythm with S1-S2 Abdomen: nondistended, normoactive bowel sounds, soft, nontender to palpation Extremities: no edema, erythema, or tenderness to palpation, DP pulses 2+ bilaterally Skin: no rashes or lesions, warm and dry Psych: appropriate mood and affect, judgment and insight intact Objective Data Vital Signs Vital Signs: Vital Signs - 24 hr 12/24/21 21:09 12/24/21 20:00 12/25/21 05:19 Temperature 98.5 F 97.7 F Pulse Rate 66 63 Respiratory Rate 14 14 Blood Pressure 116/68 121/74 Pulse Oximetry 98 98 Oxygen Delivery Room Air 12/25/21 08:27 12/25/21 08:43 12/25/21 08:00 Temperature Pulse Rate 71 Respiratory Rate Blood Pressure Pulse Oximetry 97 Oxygen Delivery Room Air Room Air 12/25/21 14:00 Temperature 96.8 F L Pulse Rate 70 Respiratory Rate 18 Blood Pressure 11
[2021-12-25 15:38] LABS: Potassium 2.9 mmol/L (3.4-5.0)
[2021-12-25 15:45] LABS: Magnesium 2.1 mg/dL (1.6-2.3)
[2021-12-25 16:43] LABS: Glucose Point of Care 367 mg/dl (65-105)
[2021-12-25] MEDS: POTASSIUM CHLORIDE 20 MEQ TABLET PO (17:06)
[2021-12-25] MEDS: POTASSIUM CHLORIDE 20 MEQ TABLET.ER 40 MEQ PO (17:06)
[2021-12-25] MEDS: METOCLOPRAMIDE HCL 10 MG/10 ML SOLN UDC PO ×2 (17:10→20:56)
[2021-12-25] MEDS: INSULIN GLARGINE (*BKC) 100 UNITS/ML 20 UNITS SUB-Q (20:56)
[2021-12-25 21:02] LABS: Glucose Point of Care 182 mg/dl (65-105)
[2021-12-25 21:42] VITALS: BP 112/77; PULSE 68; RESP 20; TEMP 36.6; O2SAT 100
[2021-12-26] MEDS: METOCLOPRAMIDE HCL 10 MG/10 ML SOLN UDC PO (05:49)
[2021-12-26 05:59] VITALS: BP 104/65; PULSE 68; RESP 20; TEMP 36.9; O2SAT 99
[2021-12-26 06:44] LABS: Hematocrit 39.9 % (37.0-47.0); Hemoglobin 13.8 g/dL (12.0-15.0); Mean Corpuscular HGB Conc 34.6 g/dl (32-36); Mean Corpuscular Hemoglobin 30.5 pg (26-34); Mean Corpuscular Volume 88.1 fl (80-100); Mean Platelet Volume 11.2 fl (7.4-10.4); Platelet Count Result 258 k/mm3 (150-375); Red Blood Count 4.53 M/mm3 (4.2-5.4); Red Cell Distribution Width 13.5 % (11.5-14.5)
[2021-12-26 06:58] LABS: Anion Gap 14 mmol/L (8-16); Blood Urea Nitrogen 32 mg/dL (7-17); Carbon Dioxide 23 mmol/L (22-30); Chloride 97 mmol/L (98-107); Estimated CRCL calculation 42 ml/min; Estimated Glomerular Filt Rate 44; Glucose 206 mg/dL (65-110); Potassium 3.4 mmol/L (3.4-5.0); Sodium 134 mmol/L (137-145)
[2021-12-26 07:48] LABS: Glucose Point of Care 225 mg/dl (65-105)
[2021-12-26 08:52] VITALS: PULSE 70
[2021-12-26] MEDS: atenoloL 50 MG TABLET PO (08:52)
[2021-12-26] MEDS: ATORVASTATIN 10 MG TABLET PO (08:55)
[2021-12-26] MEDS: PANTOPRAZOLE SODIUM IV 40 MG VIAL IV PUSH (08:55)
[2021-12-26] MEDS: lisinopriL 5 MG TABLET PO (08:55)
[2021-12-26] MEDS: INSULIN ASPART (*BKC) 100 UNITS/ML SUB-Q ×2 (09:17→12:31)
[2021-12-26] MEDS: POTASSIUM CHLORIDE 20 MEQ TABLET.ER 40 MEQ PO (10:33)
[2021-12-26] MEDS: ASPIRIN 81 MG ENTERIC TABLET PO (10:34)
[2021-12-26] MEDS: CHLORTHALIDONE 25 MG TABLET PO (10:34)
[2021-12-26 12:00] LABS: Glucose Point of Care 268 mg/dl (65-105)
[2021-12-26 13:54] VITALS: BP 117/79; PULSE 68; RESP 16; TEMP 35.6; O2SAT 100
--- NOTE | 2021-12-26 14:40 | PM.DS ---
DS: Admitting Diagnosis Discharge Date 12/26/2021 Admitting Diagnosis nausea and vomiting DS: Discharge Diagnosis Discharge Diagnosis (1) Drug side effects: Code(s): T88.7XXA - Unspecified adverse effect of drug or medicament, initial encounter Status: Acute Assessment and Plan: Patient reports recently starting on Ozempic with onset of acute nausea and vomiting the following day. She also reports taking Mounjaro in the past with similar symptoms. Symptoms possibly secondary to delayed gastric emptying from medication. Ozempic discontinued. Patient able to slowly advanced to diabetic diet and tolerated this. She will continue antiemetics at home as needed (2) Nausea & vomiting: Qualifiers: Vomiting type: unspecified Qualified Code(s): R11.2 - Nausea with vomiting, unspecified Code(s): R11.2 - Nausea with vomiting, unspecified Status: Acute Assessment and Plan: Secondary to above. Concern for underlying gastroparesis. Discussed case with GI. Patient will have outpatient gastric emptying study and follow-up with PCP for appropriate management following these results. Continue antiemetics as needed. (3) HTN (hypertension) with goal to be determined: Code(s): I10 - Essential (primary) hypertension Status: Chronic Assessment and Plan: Blood pressure relatively well controlled. Continue home lisinopril. 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 A1c 8.4%. Ozempic discontinued as above. Lantus increased to 24 units qHS. Continue home metformin. Patient will continue to monitor glucose with CGM and follow up with PCP for further monitoring. (5) Hypokalemia: Code(s): E87.6 - Hypokalemia Status: Acute Assessment and Plan: Hypokalemia likely due to decreased p.o. intake, vomiting. Potassium was monitored and replaced during admission. Levels normalized. Anticipate resolution as diet has been advanced (6) Elevated serum creatinine: Code(s): R79.89 - Other specified abnormal findings of blood chemistry Status: Acute Assessment and Plan: Creatinine levels appear fluctuant, levels ranging from 0.8-1.3. She will have repeat BMP in 1 week to monitor creatinine and follow-up with PCP. DS: Summary Hospital Course Hospital Course: date of admission: 12/22/2021 date of discharge: 12/26/2021 Vangie King is a 51-year-old female with a history of hypertension, hyperlipidemia, and type 2 diabetes mellitus who presented to the emergency department on 12/23/2021 with complaints of nausea and vomiting with onset after her 1st injection of Ozempic. On presentation to the emergency department, her vital signs were stable, she was afebrile, white blood cell count 12.1, serum glucose 229, additional laboratory workup unremarkable. She was admitted to the hospitalist service for further evaluation and management. She was rehydrated with IV fluids and provided antiemetics for symptomatic relief. She did have improvement and was eventually able to tolerate a regular, diabetic diet. Because of persistent nausea, the case was discussed with Gastroenterology who recommended outpatient gastric emptying study. The patient will complete this with results back to her primary care provider. Ozempic was discontinued. Lantus was increased for improved glycemic control. Patient will continue to use of continuous glucose monitor and will follow-up with her PCP in 1 week for evaluation of blo
== END 2021-12-26 16:50 | disposition home or self-care (01) ==
LOC: ANHED 12-24 00:19 → ANH3MEDSUR 12-24 01:11
PROVIDERS: Nurse Practitioner Family; Admitting Provider Internal Medicine; Emergency Provider Emergency Medicine; PCP Registered Nurse; Visit Provider Physician Assistant
DX: R11.2 Nausea with vomiting, unspecified (principal); T50.995A Adverse effect of other drugs, medicaments and biological substances, initial encounter; Z20.822 Contact with and (suspected) exposure to COVID-19; Z87.891 Personal history of nicotine dependence; Z79.4 Long term (current) use of insulin; Z79.85 Long-term (current) use of injectable non-insulin antidiabetic drugs; Z79.899 Other long term (current) drug therapy; Z83.3 Family history of diabetes mellitus; Z82.49 Family history of ischemic heart disease and other diseases of the circulatory system
CPT/HCPCS: 36415; 71045; 80048; 80053; 82948; 83036; 83690; 83735; 84132; 84443; 84484; 85025; 85027; 87502; 93005; 96361; 96374; 96375; 96376; 99285; A9270; C9113; G0378; J1815; J2405; J2765; J7030; U0003; U0005

== ENCOUNTER 2022-01-02 16:07 | Emergency (ER) | payer OTHER, SELFPAY ==
--- NOTE | ~2022-01-02 | XR_ITS ---
EXAMINATION: XR abdomen obstructive series DATE: 01/02/2022 18:23 INDICATION: Constipation TECHNIQUE: Upright and supine views of the abdomen were obtained. COMPARISON: CT, 11/05/2021 FINDINGS: A moderate volume of colonic stool is present. There are no dilated loops of bowel. No free intraperitoneal gas is identified. The visualized lung bases are clear. IMPRESSION: 1. Moderate volume of colonic stool. 2. Nonobstructive bowel gas pattern. Reviewed, dictated and finalized at location F. CAR INSPECTOR
--- NOTE | ~2022-01-02 | CT_ITS ---
EXAMINATION: CT abdomen pelvis w con INDICATION: Epigastric pain, nausea and vomiting TECHNIQUE: Computed tomographic images of the abdomen and pelvis were obtained after the administrati on of 100 cc of Omnipaque 350 intravenous contrast. The dose-length product (DLP) was 303.59 mGy-cm. Automated exposure control and iterative reconstruction technique were employed. COMPARISON: 11/13/2021 FINDINGS: The lung bases are clear. The heart size is normal. The liver, spleen, pancreas, gallbladde r, and adrenal glands are normal. There is a 5 mm cyst of the right kidney. The left kidney is unrema rkable. There is calcified atherosclerosis of the abdominal aorta. No pathologically enlarged abdomin al or pelvic lymph nodes are identified. There is no free intraperitoneal gas or evidence of bowel ob struction. The appendix is normal. A large volume of colonic stool is present. IMPRESSION: 1. Constipation Reviewed, dictated and finalized at location F. GAGE LOAN REVIEWER IMPRESSION: 1. Constipation
[2022-01-02 16:12] VITALS: BP 100/71; PULSE 94; RESP 16; TEMP 36.9; O2SAT 99
--- NOTE | 2022-01-02 17:58 | ED.NAVMDI ---
HPI - Nausea/Vomiting/Diarrhea General Chief complaint: Nausea/Vomiting/Diarrhea <OFELIA Mccormick Last Filed: 01/03/22 15:08> Stated complaint: dehydration <OFELIA Mccormick Last Filed: 01/03/22 15:08> Time Seen by Provider: 01/02/22 17:51 <OFELIA Mccormick Last Filed: 01/03/22 15:08> History of Present Illness HPI Narrative: Patient is a 51-year-old female here for evaluation of nausea and vomiting. Patient has been dealing with this issue for the past several months and has been admitted to the hospital twice for this issue. She underwent an EGD which was normal, has been discharged after getting fluids and antiemetics. Patient states she was most recently discharged last week from the hospital with a prescription for Zofran. She has not been taking the Zofran because she states it makes her feel dizzy. She began to vomit again in 2 days ago, today she cannot keep anything down which prompted her ED evaluation. Also notes abdominal discomfort with nausea and vomiting; her last bowel movement was about 5 days ago. No fevers, chills, blood in her stools. <OFELIA Mccormick Last Filed: 01/03/22 15:08> Related Data Home medications: Home Medications Medication Instructions Recorded Confirmed atenolol 50 mg-chlorthalidone 25 1 tablet PO DAILY 09/25/21 12/24/21 mg tablet metformin 500 mg tablet 1,000 mg PO BID 12/24/21 12/24/21 <OFELIA Mccormick Last Filed: 01/03/22 15:08> Allergies/Adverse reactions: Allergies Allergy/AdvReac Type Severity Reaction Status Date / Time quinine Allergy Rash Verified 12/22/21 03:26 <OFELIA Mccormick Last Filed: 01/03/22 15:08> Review of Systems Review of Systems: Gen.: Denies fevers or chills Eyes: Denies eye pain or visual change ENT: Denies congestion Respiratory: Denies shortness of breath or cough CV: Denies chest pain or palpitations GI: Reports abdominal pain, constipation, nausea and vomiting. denies burning, urgency, frequency or hematuria Musculoskeletal: Denies back pain or muscle pain Neuro: Denies numbness, tingling, weakness or focal weakness Skin: Denies rash Except as documented, all other systems reviewed and negative <Tete Velasquez PA-C - Last Filed: 01/03/22 15:08> [facility] Past Medical History Medical History: Medical History Diabetes mellitus HTN (hypertension) with goal to be determined Hyperlipidemia <Tete Velasquez PA-C - Last Filed: 01/03/22 15:08> Surgical History Surgical History: Surgical History H/O section H/O eye surgery H/O oral surgery History of surgery on lower extremity right leg <Tete Velasquez PA-C - Last Filed: 01/03/22 15:08> Family History Family History: Family History (Updated 12/24/21 @ 17:14 by Yasmine Tatum APRN) Sibling Diabetes mellitus Lung cancer Father Acute myocardial infarction Mother Acute myocardial infarction <Tete Velasquez PA-C - Last Filed: 01/03/22 15:08> Social History Social History: Social History Social History: The patient stated that she has quit smoking. She denies alcohol. She stated she recently is smokes some marijuana to help increase her appetite. She works for [employer]. 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 Code status full code Years smoked: 34 Smoking status: Never smoker Tobacco type: cigarettes Alcohol intake: never Drinks per week: 2 Substance use: current Substance use type: marijuana Lack of Transportation: No Lack of Food: Never True Current Housing: I Have Housing Concerned About Future Housing: No Diffi
[2022-01-02] MEDS: METOCLOPRAMIDE HCL INJ 10 MG/2 ML VIAL IV PUSH (18:12)
[2022-01-02] MEDS: SODIUM CHLORIDE 0.9% IV 1,000 ML 999 ML IV CONT ×2 (18:12→19:05)
[2022-01-02] MEDS: diphenhydrAMINE HCl INJ 50 MG/ML VIAL 12.5 MG IV PUSH (18:12)
[2022-01-02] MEDS: FAMOTIDINE 20 MG/2 ML VIAL IV PUSH (18:13)
[2022-01-02 18:17] LABS: Basophils Absolute Auto 0.1 K/mm3 (0.0-0.1); Basophils Percent Auto 0.7 % (0.2-1.2); Eosinophils Absolute Auto 0.1 K/mm3 (0-0.3); Eosinophils Percent Auto 0.5 % (0-4.4); Hematocrit 40.1 % (37.0-47.0); Hemoglobin 14.1 g/dL (12.0-15.0); Immature Granulocyte Absolute 0.03 K/mm3 (0.00-0.031); Immature Granulocyte Percent A 0.3 % (0-0.5); Lymphocytes Absolute Auto 3.62 K/mm3 (0.9-3.2); Lymphocytes Percent Auto 34.6 % (18.3-44.2); Mean Corpuscular HGB Conc 35.2 g/dl (32-36); Mean Corpuscular Hemoglobin 30.5 pg (26-34); Mean Corpuscular Volume 86.8 fl (80-100); Mean Platelet Volume 11.7 fl (7.4-10.4); Monocytes Absolute Auto 0.9 K/mm3 (0.1-0.6); Monocytes Percent Auto 8.9 % (2.6-8.5); Neutrophils Absolute Auto 5.8 K/mm3 (1.3-6.7); Platelet Count Result 213 k/mm3 (150-375); Red Blood Count 4.62 M/mm3 (4.2-5.4); White Blood Count 10.5 K/mm3 (4.5-10.0)
[2022-01-02 18:18] LABS: Appearance Urine Cloudy (Clear); Bilirubin Urine 2+ (Negative); Blood Urine Negative (Negative); Color Urine Yellow (Yellow); Glucose Urine UA 1+ mg/dL (Negative); Ketones Urine 2+ mg/dL (Negative); Leukocyte Esterase Ur Negative LEU/UL (Negative); Nitrate Urine Negative (Negative); Protein Urine 2+ mg/dL (Negative); Specific Grav Ur 1.025 (1.001-1.035); pH Urine 5.5 (5.0-9.0)
[2022-01-02 18:25] LABS: Phosphorus 3.6 mg/dL (2.5-4.5)
[2022-01-02 18:26] LABS: Alanine Aminotransferase 26 U/L (6-35); Albumin Level 4.3 g/dL (3.5-5.1); Alkaline Phosphatase 74 U/L (38-126); Anion Gap 15 mmol/L (8-16); Aspartate Amino Transferase 31 U/L (14-36); Bilirubin,Total 0.8 mg/dL (0.2-1.3); Blood Urea Nitrogen 21 mg/dL (7-17); Calcium 9.5 mg/dL (8.4-10.2); Carbon Dioxide 31 mmol/L (22-30); Chloride 88 mmol/L (98-107); Estimated CRCL calculation 50 ml/min; Estimated Glomerular Filt Rate 53; Glucose 205 mg/dL (65-110); Lipase 228 U/L (23-300); Sodium 134 mmol/L (137-145)
[2022-01-02 18:34] LABS: Bacteria Urine 1+ /hpf; Mucus Urine Heavy /lpf; RBC Urine 0-2 /hpf (0-2); Squamous Epithelial Cell Urine Occasional /hpf (Few); WBC Urine 0-3 /hpf
[2022-01-02 18:36] LABS: Add Urine Microscopic? YES
[2022-01-02] MEDS: POTASSIUM CHLORIDE 20 MEQ PACKET (FOR LIQUID) 40 MEQ PO (19:04)
== END 2022-01-02 21:45 | disposition home or self-care (01) ==
PROVIDERS: Emergency Medicine; Physician Assistant; Emergency Provider Emergency Medicine; PCP Registered Nurse
DX: K59.00 Constipation, unspecified (principal); E11.9 Type 2 diabetes mellitus without complications; I10 Essential (primary) hypertension; E78.5 Hyperlipidemia, unspecified; Z79.84 Long term (current) use of oral hypoglycemic drugs
CPT/HCPCS: 36415; 74019; 74177; 80053; 81001; 81025; 83690; 83735; 84100; 85025; 96361; 96374; 96375; 99284; A9270; J1200; J2765; J7030; Q9967

== ENCOUNTER 2022-01-08 16:15 | Emergency (ER) | payer OTHER, SELFPAY ==
--- NOTE | ~2022-01-08 | CT_ITS ---
EXAMINATION: CT abdomen pelvis w con DATE: 01/08/2022 20:22 INDICATION: diffuse pain, constipation X 2 weeks TECHNIQUE: Computed tomography (CT) of the abdomen and pelvis was performed with 100 mL Omnipaque-350 intravenous contrast. Automated exposure control and iterative reconstruction technique were employe d. The dose-length product was 287.31 mGy-cm. COMPARISON: 01/02/2022. FINDINGS: Lower thorax: Small hiatal hernia. Left dependent scar. Liver: Right liver lobe hypodensity near the dome, too small to characterize but likely represents a cyst. Biliary/Gallbladder: Gallbladder is normal. No bile duct dilation. Pancreas: No mass or duct dilation. Spleen: Normal. Adrenals:No mass. Kidneys: No suspicious mass, stone, or hydronephrosis. Right midpole hypodensity, too small to charac terize but most likely represents a cyst. GI tract: Distal esophageal and gastric wall edema. No small or large bowel dilation. Normal appendix . Diverticulosis without diverticulitis. Mesentery/Peritoneum: No ascites, mass, or free air. Retroperitoneum: No mass. Atherosclerotic abdominal aortic and/or arterial calcifications. Pelvis: Pelvic organs are within normal limits. 3.6 cm simple appearing left ovarian cyst. Soft Tissues: Soft tissues and body wall unremarkable. Bones: No acute osseous finding. IMPRESSION: Esophagitis/gastritis. Otherwise no acute finding detected in the abdomen or pelvis. 3.6 cm simple ap pearing left ovarian cyst, recommend pelvic ultrasound follow-up in 6-12 months if the patient is pos tmenopausal, otherwise no follow-up is recommended. Reviewed, dictated and finalized at location K. MATIC DOOR MECHANIC IMPRESSION: Esophagitis/gastritis. Otherwise no acute finding detected in the abdomen or pe lvis. 3.6 cm simple appearing left ovarian cyst, recommend pelvic ultrasound fo llow-up in 6-12 months if the patient is postmenopausal, otherwise no follow-up is recommended.
[2022-01-08 16:20] VITALS: BP 121/81; PULSE 96; RESP 20; TEMP 36.9; O2SAT 100
[2022-01-08 17:34] VITALS: PULSE 75; RESP 16; O2SAT 99
--- NOTE | 2022-01-08 17:55 | ED.ABDPAIN ---
HPI - Abdominal Pain General Chief Complaint: Abdominal Pain Stated Complaint: no BM for 2 weeks Time Seen by Provider: 01/08/22 17:25 Source: patient and old records reviewed Mode of arrival: ambulatory Limitations: no limitations History of Present Illness HPI narrative: Patient is a 51-year-old female who presents the ED with report of abdominal pain. Patient reports the pain began this morning. She complains of pain in her right sided and mid abdomen. She also reports nausea, but denies vomiting. She does report constipation. She states it has been approximately 2 weeks since she had a solid bowel movement. Per patient's records, she was seen in the ED here on 01/[address] scan performed which showed constipation. She was given supportive therapy in the ED and discharged home. She has been using suppositories and MiraLAX at home without relief. She has not tried anything for pain. No fever, urinary sx's. Related Data Home Medications Medication Instructions Recorded Confirmed atenolol 50 mg-chlorthalidone 25 1 tablet PO DAILY 09/25/21 12/24/21 mg tablet metformin 500 mg tablet 1,000 mg PO BID 12/24/21 12/24/21 Allergies Allergy/AdvReac Type Severity Reaction Status Date / Time quinine Allergy Rash Verified 12/22/21 03:26 Review of Systems Review of Systems: CONSTITUTIONAL: Denies fever. CARDIOVASCULAR: Denies chest pain. RESPIRATORY: Denies dyspnea. GASTROINTESTINAL: Reports abdominal pain, nausea, constipation. Denies vomiting, diarrhea. GENITOURINARY: Denies dysuria or hematuria. All systems reviewed & are unremarkable except as noted in HPI and below PMFSH Past Medical History Medical History Diabetes mellitus HTN (hypertension) with goal to be determined Hyperlipidemia Surgical History Surgical History H/O section H/O eye surgery H/O oral surgery History of surgery on lower extremity right leg Family History Family History (Updated 12/24/21 @ 17:14 by Yasmine Tatum APRN) Sibling Diabetes mellitus Lung cancer Father Acute myocardial infarction Mother Acute myocardial infarction Social History Social History Social History: The patient stated that she has quit smoking. She denies alcohol. She stated she recently is smokes some marijuana to help increase her appetite. She works for [employer]. 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 Code status full code Years smoked: 34 Smoking status: Never smoker Tobacco type: cigarettes Alcohol intake: never Drinks per week: 2 Substance use: current Substance use type: marijuana Lack of Transportation: No Lack of Food: Never True Current Housing: I Have Housing Concerned About Future Housing: No Difficulty Paying Gas/Electric Bills: No Difficulty Paying for Meds: No Currently Unemployed: No Education: High School Diploma/GED Difficulty w/ Childcare or Family Care: No Gender identity (if verbalized by the patient): Female Spiritual care concerns: No Exam Narrative: GENERAL: Well appearing, well-nourished, non-toxic, in no acute distress. HEAD: Normocephalic, atraumatic. NECK: Supple. No adenopathy, no masses. RESPIRATORY: Airway patent, respirations nonlabored. Clear to auscultation bilaterally, no rales, rhonchi, wheezing. CARDIOVASCULAR: Regular rate and rhythm without murmurs, rubs, or gallops. Peripheral pulses 2+ and equal bilaterally. ABDOMINAL: Soft, diffuse tenderness throughout abdomen, worst in epigastric region, right lower quadrant, nondistended, no hepatosplenomegaly. Normoactive BS. MUSCULOSKELETAL: Moves all extremities. Strength/ROM intact without gross deformities. SKIN: Warm, dry, normal color. No rashes
--- NOTE | 2022-01-08 18:17 | PC.NURSE ---
patient refused bedside test. states no period since april
[2022-01-08 18:31] LABS: Appearance Urine Clear (Clear); Bilirubin Urine 1+ (Negative); Blood Urine Negative (Negative); Color Urine Yellow (Yellow); Glucose Urine UA 2+ mg/dL (Negative); Ketones Urine 2+ mg/dL (Negative); Leukocyte Esterase Ur Negative LEU/UL (Negative); Nitrate Urine Negative (Negative); Protein Urine 2+ mg/dL (Negative); pH Urine 7.5 (5.0-9.0)
[2022-01-08 18:33] LABS: Basophils Percent Auto 0.3 % (0.2-1.2); Eosinophils Percent Auto 0.5 % (0-4.4); Hematocrit 38.8 % (37.0-47.0); Hemoglobin 13.2 g/dL (12.0-15.0); Immature Granulocyte Absolute 0.02 K/mm3 (0.00-0.031); Immature Granulocyte Percent A 0.3 % (0-0.5); Lymphocytes Absolute Auto 1.63 K/mm3 (0.9-3.2); Lymphocytes Percent Auto 27.4 % (18.3-44.2); Mean Corpuscular Hemoglobin 30.6 pg (26-34); Mean Corpuscular Volume 89.8 fl (80-100); Mean Platelet Volume 11.3 fl (7.4-10.4); Monocytes Absolute Auto 0.4 K/mm3 (0.1-0.6); Monocytes Percent Auto 6.9 % (2.6-8.5); Neutrophils Absolute Auto 3.8 K/mm3 (1.3-6.7); Neutrophils Percent Auto 64.6 % (45.5-73.1); Platelet Count Result 194 k/mm3 (150-375); Red Blood Count 4.32 M/mm3 (4.2-5.4); Red Cell Distribution Width 13.1 % (11.5-14.5); White Blood Count 5.9 K/mm3 (4.5-10.0)
[2022-01-08] MEDS: SODIUM CHLORIDE 0.9% IV 1,000 ML 999 ML IV CONT ×2 (18:41→20:33)
[2022-01-08] MEDS: ONDANSETRON INJ 4 MG/2 ML VIAL IV PUSH (18:41)
[2022-01-08 18:42] LABS: Bacteria Urine Trace /hpf; Mucus Urine Few /lpf; RBC Urine 0-2 /hpf (0-2); Squamous Epithelial Cell Urine Moderate /hpf (Few); WBC Urine 0-3 /hpf
[2022-01-08 18:43] LABS: Alanine Aminotransferase 26 U/L (6-35); Albumin Level 4.3 g/dL (3.5-5.1); Alkaline Phosphatase 64 U/L (38-126); Anion Gap 12 mmol/L (8-16); Aspartate Amino Transferase 31 U/L (14-36); Bilirubin,Total 0.7 mg/dL (0.2-1.3); Blood Urea Nitrogen 12 mg/dL (7-17); Calcium 9.3 mg/dL (8.4-10.2); Carbon Dioxide 28 mmol/L (22-30); Chloride 97 mmol/L (98-107); Estimated CRCL calculation 59 ml/min; Estimated Glomerular Filt Rate > 60; Glucose 179 mg/dL (65-110); Lipase 140 U/L (23-300); Potassium 3.5 mmol/L (3.4-5.0); Sodium 137 mmol/L (137-145)
[2022-01-08 18:46] LABS: Add Urine Microscopic? YES
[2022-01-08] MEDS: PANTOPRAZOLE SODIUM IV 40 MG VIAL IV PUSH (21:02)
[2022-01-08] MEDS: DICYCLOMINE HCL INJ 20 MG/2 ML VIAL IM (22:26)
[2022-01-08 22:29] VITALS: PULSE 75; RESP 16; O2SAT 100
== END 2022-01-08 22:30 | disposition home or self-care (01) ==
PROVIDERS: Emergency Provider Physician Assistant; PCP Registered Nurse
DX: K59.00 Constipation, unspecified (principal); E11.9 Type 2 diabetes mellitus without complications; I10 Essential (primary) hypertension; E78.5 Hyperlipidemia, unspecified; Z79.84 Long term (current) use of oral hypoglycemic drugs; Z87.891 Personal history of nicotine dependence; N83.202 Unspecified ovarian cyst, left side; K29.70 Gastritis, unspecified, without bleeding; K20.90 Esophagitis, unspecified without bleeding
CPT/HCPCS: 36415; 74177; 80053; 81001; 83690; 85025; 96361; 96372; 96374; 96375; 99284; C9113; J0131; J0500; J2405; J7030; Q9967

== ENCOUNTER 2022-01-23 15:27 | Observation (INO) | payer OTHER, SELFPAY ==
--- NOTE | ~2022-01-23 | CT_ITS ---
EXAMINATION: CT abdomen pelvis w con DATE: 01/23/2022 18:36 INDICATION: Epigastric abdominal pain, nausea, vomiting, diarrhea TECHNIQUE: Computed tomography (CT) of the abdomen and pelvis was performed with 100 CC Omnipaque 350 intravenous contrast. Automated exposure control and iterative reconstruction technique were employe d. Exam dose: 263.95 mGy-cm total exam DLP. COMPARISON: 01/08/2022 CT abdomen pelvis FINDINGS: The lung bases are clear. Normal heart size. No pericardial or pleural effusion. Liver, gallbladder, bile ducts, spleen, pancreas and pancreatic duct are unremarkable. No gallbladder wall thickening or pericholecystic fluid or fat stranding. Normal morphology of the adrenal glands. 7 mm probable right renal cyst. The kidneys are otherwise unremarkable. No urinary tract calculus or hydroureteronephrosis. The urinary bladder and uterus are unremarkable. Approximately 2.4 cm probable left ovarian cyst or cystic mass; consider pelvic ultrasound correlation as clinically appropriate. There is atherosclerotic calcification but normal caliber of the abdominal aorta. No intraperitoneal or retroperitoneal or pelvic mass lesion or adenopathy or ascites is noted. Prominent diverticulosis of the sigmoid colon; no CT evidence of diverticulitis. No bowel obstruction or intraperitoneal free air. Normal appendix.. No suspicious osteolytic or osteoblastic lesions. IMPRESSION: 7 mm probable right renal cyst 2.4 cm left ovarian cyst or cystic mass Diverticulosis of sigmoid colon; no evidence of diverticulitis No bowel obstruction or free air Reviewed, dictated and finalized at [facility]. Reviewed, dictated and finalized at location [facility]. [facility]
[2022-01-23 16:06] VITALS: BP 162/89; PULSE 88; RESP 16; TEMP 36.6; O2SAT 100
[2022-01-23 16:30] LABS: Basophils Absolute Auto 0.1 K/mm3 (0.0-0.1); Eosinophils Percent Auto 0.4 % (0-4.4); Hematocrit 37.4 % (37.0-47.0); Hemoglobin 12.8 g/dL (12.0-15.0); Immature Granulocyte Absolute 0.01 K/mm3 (0.00-0.031); Immature Granulocyte Percent A 0.2 % (0-0.5); Lymphocytes Absolute Auto 1.73 K/mm3 (0.9-3.2); Lymphocytes Percent Auto 33.3 % (18.3-44.2); Mean Corpuscular HGB Conc 34.2 g/dl (32-36); Mean Corpuscular Hemoglobin 31.5 pg (26-34); Mean Corpuscular Volume 92.1 fl (80-100); Mean Platelet Volume 10.5 fl (7.4-10.4); Monocytes Absolute Auto 0.5 K/mm3 (0.1-0.6); Neutrophils Absolute Auto 2.9 K/mm3 (1.3-6.7); Neutrophils Percent Auto 55.1 % (45.5-73.1); Platelet Count Result 238 k/mm3 (150-375); Red Blood Count 4.06 M/mm3 (4.2-5.4); Red Cell Distribution Width 13.4 % (11.5-14.5); White Blood Count 5.2 K/mm3 (4.5-10.0)
[2022-01-23 16:49] LABS: Alanine Aminotransferase 31 U/L (6-35); Albumin Level 4.3 g/dL (3.5-5.1); Alkaline Phosphatase 59 U/L (38-126); Anion Gap 8 mmol/L (8-16); Aspartate Amino Transferase 36 U/L (14-36); Bilirubin,Total 0.8 mg/dL (0.2-1.3); Blood Urea Nitrogen 11 mg/dL (7-17); Calcium 9.1 mg/dL (8.4-10.2); Carbon Dioxide 32 mmol/L (22-30); Chloride 92 mmol/L (98-107); Estimated CRCL calculation 52 ml/min; Estimated Glomerular Filt Rate > 60; Glucose 186 mg/dL (65-110); Lipase 130 U/L (23-300); Potassium 2.8 mmol/L (3.4-5.0); Sodium 132 mmol/L (137-145)
[2022-01-23 16:49] LABS: Appearance Urine Slightly Cloudy (Clear); Bilirubin Urine 2+ (Negative); Blood Urine Negative (Negative); Color Urine Yellow (Yellow); Glucose Urine UA 1+ mg/dL (Negative); Ketones Urine 2+ mg/dL (Negative); Leukocyte Esterase Ur Negative LEU/UL (Negative); Nitrate Urine Negative (Negative); Protein Urine 2+ mg/dL (Negative)
[2022-01-23 16:55] LABS: Hyaline Casts Urine 15-19 /lpf; Mucus Urine Rare /lpf; Squamous Epithelial Cell Urine Many /hpf (Few)
[2022-01-23 16:56] LABS: Add Urine Microscopic? YES
[2022-01-23 17:37] VITALS: BP 175/88; PULSE 82; RESP 13; O2SAT 100
[2022-01-23] MEDS: MORPHINE SULFATE (*CRX) 4 MG/ML INJ IV PUSH (17:38)
[2022-01-23] MEDS: ONDANSETRON INJ 4 MG/2 ML VIAL IV PUSH (17:38)
[2022-01-23] MEDS: POTASSIUM CHLORIDE INJ 40 MEQ in SODIUM CHLORIDE 0.9% IV 500 ML 130 MEQ IVPB (17:39)
[2022-01-23 17:49] LABS: Magnesium 1.6 mg/dL (1.6-2.3)
--- NOTE | 2022-01-23 18:19 | ED.GENADULT ---
HPI - General Adult General Chief complaint: Nausea/Vomiting/Diarrhea Stated complaint: FEELS DEHYDRATED,N/V Time Seen by Provider: 01/23/22 17:15 Source: patient Mode of arrival: ambulatory Limitations: no limitations History of Present Illness HPI narrative: 51-year-old with a history of diabetes insulin requiring, hyperlipidemia, hypokalemia, gastroparesis here with complaints of nausea, vomiting, epigastric pain which has been ongoing for several weeks. Patient states that she is unable to keep any fluids down for past 1 week. She states that she has seen Dr. Weems on outpatient basis and he is scheduled for test. She denies any fever or chills. Onset (ago): week(s) Location: abdomen (Epigastric) Severity: moderate Quality: aching Pain Consistency: constant Relieving factors: none Exacerbating factors: other (Eating or drinking) Treatments prior to arrival: none Related Data Home Medications Medication Instructions Recorded Confirmed atenolol 50 mg-chlorthalidone 25 1 tablet PO DAILY 09/25/21 01/16/22 mg tablet metformin 500 mg tablet 1,000 mg PO BID 12/24/21 01/16/22 Allergies Allergy/AdvReac Type Severity Reaction Status Date / Time quinine Allergy Rash Verified 01/23/22 17:48 Review of Systems Review of Systems: All systems reviewed & are unremarkable except as noted in HPI and below Constitutional: Constitutional: Reports no additional constitutional complaints Eyes: Eyes: Reports no additional eye complaints ENT: Reports system reviewed and no additional complaints, except as documented Cardiovascular: Cardiovascular: Reports no additional cardiovascular complaints Respiratory: Respiratory: Reports no additional respiratory complaints Gastrointestinal: Gastrointestinal: Reports as per HPI Musculoskeletal: Musculoskeletal: Reports no additional musculoskeletal complaints Integumentary/Breasts: Skin/Breast: Reports system reviewed and no additional complaints, except as docu Neurologic: Reports system reviewed and no additional complaints, except as documented Psychiatric: Psychiatric: Reports no additional psychiatric complaints [facility] Past Medical History Medical History (Updated 01/23/22 @ 18:24 by Roberto Taylor MD) Diabetes mellitus HTN (hypertension) with goal to be determined Hyperlipidemia Nausea and vomiting Surgical History Surgical History H/O section H/O eye surgery H/O oral surgery History of surgery on lower extremity right leg Family History Family History Sibling Diabetes mellitus Lung cancer Father Acute myocardial infarction Mother Acute myocardial infarction Social History Social History Social History: The patient stated that she has quit smoking. She denies alcohol. She stated she recently is smokes some marijuana to help increase her appetite. She works for [employer]. 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 Code status full code Years smoked: 34 Smoking status: Never smoker Tobacco type: cigarettes Alcohol intake: never Drinks per week: 2 Substance use: current Substance use type: marijuana Lack of Transportation: No Lack of Food: Never True Current Housing: I Have Housing Concerned About Future Housing: No Difficulty Paying Gas/Electric Bills: No Difficulty Paying for Meds: No Currently Unemployed: No Education: High School Diploma/GED Difficulty w/ Childcare or Family Care: No Gender identity (if verbalized by the patient): Female Spiritual care concerns: No Exam Narrative: GENERAL: Well-appearing, well-nourished, and in no acute distress. HEAD: Normocephalic, atraumatic. EYES: PERRLA and EOMI. ENT: Nares clear, no rhinorrhea or epistaxis. Mucou
[2022-01-23] MEDS: METOCLOPRAMIDE HCL INJ 10 MG/2 ML VIAL 5 MG IV PUSH (18:34)
[2022-01-23 18:37] VITALS: BP 183/85; PULSE 98; RESP 23; O2SAT 100
[2022-01-23 18:41] LABS: Glucose Point of Care 179 mg/dl (65-105)
[2022-01-23] MEDS: SODIUM CHLORIDE 0.9% IV 1,000 ML 125 ML IV CONT (18:56)
[2022-01-23 20:32] LABS: Influenza A QL RT-PCR Negative (Negative); Influenza B QL RT-PCR Negative (Negative); SARS-CoV-2 RNA PCR Negative
[2022-01-23] MEDS: POTASSIUM CHLORIDE 20 MEQ TABLET 40 MEQ PO (21:38)
[2022-01-23 21:49] VITALS: BP 152/87; PULSE 97; RESP 18; TEMP 36.5; O2SAT 100
[2022-01-23 21:54] VITALS: BMI 24.8
[2022-01-23 21:56] VITALS: BP 152/87; PULSE 97; RESP 18; TEMP 36.5; BMI 24.8
--- NOTE | 2022-01-23 22:00 | ADMGEN ---
This patient, Vangie King, was admitted to Medical Room 346-01. Patient/family oriented to hospital policies and general routines including ID bracelet, bed and alarms, visiting hours, pain management, procedures, bathroom and other care routines, personal items, smoking policy, room service/diet, and visiting hours. Information on how to activate the Rapid Response Team has been discussed. Patient/Family are encouraged to report perceived risks to care and to ask questions if they do not understand what they are told or what they should do.
[2022-01-23] MEDS: MAGNESIUM SULF 4 GM/WATER100ML 4 GM/100 ML BAG IVPB (22:04)
[2022-01-24 04:27] VITALS: BP 142/75; PULSE 74; RESP 18; TEMP 36.5; O2SAT 100
--- NOTE | 2022-01-24 04:28 | PM.IMHP ---
H&P: HPI History of Present Illness Date/Time: 01/24/22 04:28 Chief Complaint: Nausea and vomiting Narrative: 51-year-old female with past medical history of hypertension and insulin-dependent diabetes mellitus who presented to the ER with intractable nausea vomiting. She reports that she has been having pretty med intractable nausea and vomiting with dry heaves since she was started injectable medications for diabetes a couple of months ago. She had an EGD in November that was normal. She reports that she has been having associated cramping and stabbing abdominal pain. She reports that sometimes her emesis will be of clear liquid other times it will appear bilious her green in nature but a lot of the time she has dry heaves. She reports feeling nauseated almost constantly. She reports having bowel movements every 2-3 days normally formed. She has not been having any fevers or chills. She is supposed to have a gastric emptying study to look for possible diabetic gastroparesis next Thursday. She reports that her pain is an 8/10 in intensity at its worst is 6 at the 10 intensity currently. She denies any relieving factors. Her pain and symptoms are worse if she tries to eat or drink anything. She reports that she tried marijuana a couple times to help stimulate her appetite but that was a couple of months ago. She has not used marijuana since then. The patient reports that she checks her sugars 2 or 3 times a day in 130-170 range. She has not been taking her Lantus for several weeks due to her symptoms. Her hemoglobin A1c in November was 8.5. Review of Systems Review of Systems: 12 systems were reviewed with pertinent positives and negatives per HPI. Except as documented in the HPI, all other systems were reviewed and are negative. [facility] Past Medical History Medical History (Updated 01/24/22 @ 04:43 by Breann Johansen DO) Diabetes mellitus With hemoglobin A1c of 8.20 December 2021 Diastolic dysfunction without heart failure Echocardiogram 11/19/2021: Greater than 70% EF grade 1 diastolic dysfunction moderate pericardial effusion Essential hypertension Hyperlipidemia Nausea and vomiting Surgical History Surgical History (Updated 01/24/22 @ 04:39 by Breann Johansen DO) H/O section H/O eye surgery H/O oral surgery History of surgery on lower extremity right leg Normal esophagogastroduodenoscopy (EGD) (11/20/21) Family History Family History Sibling Diabetes mellitus Lung cancer Father Acute myocardial infarction Mother Acute myocardial infarction Social History Social History (Updated 01/24/22 @ 08:14 by Breann Johansen DO) Social History: The patient stated that she has quit smoking. She denies alcohol. She lives with her of 12 years. 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 However, she has been out of work for the last couple months due to her symptoms. Code status: Full code Surrogate decision maker: Smoking packs per day: 1 Smoking cigarettes per day: 20.0 Years smoked: 34 Smoking pack-years: 34.00 Smoking status: Former smoker Tobacco type: cigarettes Smoking end date: 02/16/21 Alcohol intake: former Drinks per week: 2 Substance use: former Substance use type: marijuana Other substance usage details: She tried marijuana a few times. It did not help her appetite. Lack of Transportation: No Lack of Food: Never True Current Housing: I Have Housing Concerned About Future Housing: No Difficulty Paying Gas/Electric Bills: No Difficulty Paying for Meds: No Currently Unemployed: No Education: Associate Degree Difficulty w/ Childcare or Family Care: No Gender identity (if verbalized by the patient): Female Spiritual care concerns: No Meds Home Medications and Allergies Home Medications
[2022-01-24] MEDS: METOCLOPRAMIDE HCL INJ 10 MG/2 ML VIAL IV PUSH ×4 (05:04→23:46)
[2022-01-24] MEDS: SODIUM CHLORIDE 0.9% IV 1,000 ML 125 ML IV CONT ×2 (05:04→17:32)
[2022-01-24 05:24] LABS: Glucose Point of Care 138 mg/dl (65-105)
[2022-01-24 06:36] LABS: Anion Gap 5 mmol/L (8-16); Blood Urea Nitrogen 8 mg/dL (7-17); Calcium 8.2 mg/dL (8.4-10.2); Carbon Dioxide 25 mmol/L (22-30); Chloride 97 mmol/L (98-107); Estimated CRCL calculation 66 ml/min; Estimated Glomerular Filt Rate > 60; Glucose 146 mg/dL (65-110); Potassium 3.1 mmol/L (3.4-5.0); Sodium 127 mmol/L (137-145)
[2022-01-24 07:30] LABS: Magnesium 2.5 mg/dL (1.6-2.3)
[2022-01-24 08:15] LABS: Glucose Point of Care 126 mg/dl (65-105)
[2022-01-24] MEDS: POTASSIUM CHLORIDE INJ 40 MEQ in SODIUM CHLORIDE 0.9% IV 500 ML 130 MEQ IVPB (08:36)
[2022-01-24 08:37] VITALS: PULSE 74
[2022-01-24] MEDS: ASPIRIN 81 MG ENTERIC TABLET PO (08:37)
[2022-01-24] MEDS: metFORMIN HCL 500 MG TABLET PO ×2 (08:37→17:32)
[2022-01-24] MEDS: lisinopriL 5 MG TABLET PO (08:37)
[2022-01-24] MEDS: ATORVASTATIN 10 MG TABLET PO (08:37)
[2022-01-24] MEDS: atenoloL 50 MG TABLET PO (08:37)
[2022-01-24] MEDS: PANTOPRAZOLE SODIUM IV 40 MG VIAL IV PUSH (08:38)
[2022-01-24] MEDS: ENOXAPARIN 40 MG/0.4 ML SYRINGE SUB-Q (08:38)
--- NOTE | 2022-01-24 09:49 | WPDGICN ---
Assessment and Plan Assessment and plan (1) Nausea and vomiting: Qualifiers: Vomiting type: unspecified Qualified Code(s): R11.2 - Nausea with vomiting, unspecified Code(s): R11.2 - Nausea with vomiting, unspecified Status: Acute Assessment and Plan: Patient with recurrent nausea and vomiting. It is theorized that patient likely has diabetic gastroparesis. Plan is for gastric emptying scan while patient is not taking Reglan. Patient has been given a trial of Reglan which will continue during hospital stay. IV fluid rehydration encouraged as well as IV proton pump inhibitor therapy. Other etiologies for nausea vomiting may need to be considered including medication effect or cyclical vomiting. Patient does have mild pyuria and blood in her urine suggesting she may have a urinary tract infection urinary cultures will be obtained. (2) Insulin dependent diabetes mellitus: Status: Acute Assessment and Plan: Strict control of diabetic is encouraged. Glucose control may help with her recurrent nausea vomiting. GI Consult Note Consult date/time: 01/24/22 09:49 Reason for consult: Nausea vomiting. HPI: Vangie King is a 51 year old female With underlying diabetes. Has frequent nausea vomiting. Patient apparently has gone to the emergency room on multiple occasions. I saw this patient 2 months ago and had a normal EGD. It is felt the patient likely has underlying diabetic gastroparesis. Patient was given a trial of metoclopramide along with pantoprazole but has been somewhat noncompliant with this. Since being seen in GI office with nurse practitioner several weeks ago she states she has taken the medication regularly. An outpatient gastric emptying scan is scheduled however it was advised that she hold the Reglan prior to this test for 5 days so that it may be more accurately assess underlying dysfunction. This was scheduled for upcoming Thursday. Patient presented to the emergency room yesterday and was admitted to the hospital. Review of Systems Review of Systems: Review of systems noncontributory. [facility] Past Medical History Medical History (Updated 01/24/22 @ 04:43 by Breann Johansen DO) Diabetes mellitus With hemoglobin A1c of 8.20 December 2021 Diastolic dysfunction without heart failure Echocardiogram 11/19/2021: Greater than 70% EF grade 1 diastolic dysfunction moderate pericardial effusion Essential hypertension Hyperlipidemia Nausea and vomiting Surgical History Surgical History (Updated 01/24/22 @ 04:39 by Breann Johansen DO) H/O section H/O eye surgery H/O oral surgery History of surgery on lower extremity right leg Normal esophagogastroduodenoscopy (EGD) (11/20/21) Family History Family History Sibling Diabetes mellitus Lung cancer Father Acute myocardial infarction Mother Acute myocardial infarction Social History Social History (Updated 01/24/22 @ 08:14 by Breann Johansen DO) Social History: The patient stated that she has quit smoking. She denies alcohol. She lives with her of 12 years. 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 However, she has been out of work for the last couple months due to her symptoms. Code status: Full code Surrogate decision maker: Smoking packs per day: 1 Smoking cigarettes per day: 20.0 Years smoked: 34 Smoking pack-years: 34.00 Smoking status: Former smoker Tobacco type: cigarettes Smoking end date: 02/16/21 Alcohol intake: former Drinks per week: 2 Substance use: former Substance use type: marijuana Other substance usage details: She tried marijuana a few times. It did not help her appetite. Lack of Transportation: No Lack of Food: Never True Current Housing: I Have Housing Concerned About Future Housing:
[2022-01-24] MEDS: GABAPENTIN 300 MG CAPSULE PO ×2 (12:16→17:32)
[2022-01-24 12:25] LABS: Glucose Point of Care 184 mg/dl (65-105)
[2022-01-24 12:29] LABS: Appearance Urine Clear (Clear); Bilirubin Urine Negative (Negative); Blood Urine Trace-intact (Negative); Color Urine Yellow (Yellow); Glucose Urine UA Trace mg/dL (Negative); Ketones Urine Trace mg/dL (Negative); Leukocyte Esterase Ur Negative LEU/UL (NEGATIVE); Nitrate Urine Negative (Negative); Protein Urine Negative (Negative); Urobilinogen Urine 0.2 mg/dL (<2.0)
[2022-01-24 12:31] LABS: Mucus Urine Rare /lpf; RBC Urine 0-2 /hpf (0-2); Squamous Epithelial Cell Urine Rare /hpf (Few); WBC Urine 0-3 /hpf (0-3)
[2022-01-24 12:34] LABS: Add Urine Microscopic? YES
[2022-01-24 12:43] VITALS: BMI 24.8
[2022-01-24 14:00] VITALS: BP 123/71; PULSE 67; RESP 16; TEMP 36.9; O2SAT 100
--- NOTE | 2022-01-24 16:22 | PM.IMPN ---
Progress Note: A&P Assessment and Plan (1) Nausea and vomiting: Qualifiers: Vomiting type: unspecified Qualified Code(s): R11.2 - Nausea with vomiting, unspecified Code(s): R11.2 - Nausea with vomiting, unspecified Status: Acute (2) Acute dehydration: Code(s): E86.0 - Dehydration Status: Acute (3) Acute hypokalemia: Code(s): E87.6 - Hypokalemia Status: Acute (4) Acute hyponatremia: Code(s): E87.1 - Hypo-osmolality and hyponatremia Status: Acute (5) Essential hypertension: Code(s): I10 - Essential (primary) hypertension Status: Acute (6) Insulin dependent diabetes mellitus: Status: Acute Plan Patient presents with dehydration due to intractable nausea and vomiting. The this is resulted in hypo Gloria molar hyponatremia and acute hypokalemia. She received maintenance fluids in the ER and 40 mEq potassium chloride IV. An additional 40 mEq was ordered. Hyponatremia is mild will continue IV fluids and repeat sodium levels in a.m.. Patient has insulin-dependent diabetes but her glucoses are relatively stable and near target range for hospitalized patient. The patient has not been taking her Lantus for a couple of weeks. Her glucoses is stable and controlled. Will continue to hold Lantus and will place patient on moderate sliding scale insulin with Accu-Cheks a.c. HS and hypoglycemia protocol. Will continue Reglan but will schedule IV q.6 hours will hold p.o. Reglan. Will continue Zofran as needed for nausea. The patient does have history of essential hypertension. Blood pressures are uncontrolled as the patient has not been able tolerate her home meds. Will resume the patient's home atenolol but will hold chlorthalidone due to her dehydration. Blood pressures have improved with treatment of patient's nausea and vomiting. Will add IV antihypertensives if indicated, 01/24/2022 interval history 51-year-old female with history of diabetes presented with complaint abdominal pain nausea or vomiting poor appetite patient has lost close to 40 lb, patient seen by GI suspect patient may have diabetes gastroparesis and will need gastric emptying study meanwhile patient being treated with Reglan 10 mg q.6, patient continued to complain of abdominal pain and given morphine to control pain the this will again exacerbated patient is diabetic gastroparesis, will start the course gabapentin for diabetes neuropathic pain after discussing with the patient and she is willing to take the medication, will continue to monitor will have a PT OT evaluate the patient and further recommendation to follow Subjective Date/time seen: 01/24/22 16:22 Nausea and vomiting HPI-Narrative: 51-year-old female with past medical history of hypertension and insulin-dependent diabetes mellitus who presented to the ER with intractable nausea vomiting.? She reports that she has been having pretty med intractable nausea and vomiting with dry heaves since she was started injectable medications for diabetes a couple of months ago.? She had an EGD in November that was normal.? She reports that she has been having associated cramping and stabbing abdominal pain.? She reports that sometimes her emesis will be of clear liquid other times it will appear bilious her green in nature but a lot of the time she has dry heaves.? She reports feeling nauseated almost constantly.? She reports having bowel movements every 2-3 days normally formed.? She has not been having any fevers or chills.? She is supposed to have a gastric emptying study to look for possible diabetic gastroparesis next Thursday.? She reports that her pain is an 8/10 in intensity at its worst is 6 at the 10 intensity currently.? She denies any relieving factors.? Her pain and symptoms are worse if she tries to eat or drink anything. 01/24/2022 interval history 51-year-old female with history of diabetes presented with complaint abdominal pain nausea
[2022-01-24 17:18] LABS: Glucose Point of Care 176 mg/dl (65-105)
[2022-01-24 20:00] VITALS: PULSE 67; RESP 16; O2SAT 100
[2022-01-24 20:06] LABS: Glucose Point of Care 174 mg/dl (65-105)
[2022-01-24 22:00] VITALS: BP 101/65; PULSE 61; RESP 18; TEMP 35.8; O2SAT 97
[2022-01-25] MEDS: SODIUM CHLORIDE 0.9% IV 1,000 ML 125 ML IV CONT ×2 (01:45→09:32)
[2022-01-25 06:00] VITALS: BP 109/53; PULSE 88; RESP 16; TEMP 35.7; O2SAT 98
--- NOTE | 2022-01-25 06:40 | PC.NURSE ---
Pt to stop Reglan today for Gastric Emptying study on Thursday.
[2022-01-25 08:43] LABS: Hematocrit 32.4 % (37.0-47.0); Hemoglobin 10.6 g/dL (12.0-15.0); Mean Corpuscular HGB Conc 32.7 g/dl (32-36); Mean Corpuscular Hemoglobin 30.5 pg (26-34); Mean Corpuscular Volume 93.1 fl (80-100); Mean Platelet Volume 10.5 fl (7.4-10.4); Platelet Count Result 187 k/mm3 (150-375); Red Blood Count 3.48 M/mm3 (4.2-5.4); Red Cell Distribution Width 13.3 % (11.5-14.5); White Blood Count 4.3 K/mm3 (4.5-10.0)
[2022-01-25 08:59] LABS: Alanine Aminotransferase 22 U/L (6-35); Alkaline Phosphatase 41 U/L (38-126); Anion Gap 4 mmol/L (8-16); Aspartate Amino Transferase 26 U/L (14-36); Bilirubin,Total 0.6 mg/dL (0.2-1.3); Blood Urea Nitrogen 6 mg/dL (7-17); Calcium 7.7 mg/dL (8.4-10.2); Carbon Dioxide 25 mmol/L (22-30); Chloride 107 mmol/L (98-107); Estimated CRCL calculation 76 ml/min; Estimated Glomerular Filt Rate > 60; Glucose 133 mg/dL (65-110); Magnesium 1.7 mg/dL (1.6-2.3); Potassium 3.3 mmol/L (3.4-5.0); Sodium 136 mmol/L (137-145)
[2022-01-25] MEDS: ASPIRIN 81 MG ENTERIC TABLET PO (09:21)
[2022-01-25] MEDS: ENOXAPARIN 40 MG/0.4 ML SYRINGE SUB-Q (09:21)
[2022-01-25] MEDS: ATORVASTATIN 10 MG TABLET PO (09:21)
[2022-01-25] MEDS: lisinopriL 5 MG TABLET PO (09:22)
[2022-01-25] MEDS: metFORMIN HCL 500 MG TABLET PO (09:22)
[2022-01-25] MEDS: PANTOPRAZOLE SODIUM IV 40 MG VIAL IV PUSH (09:22)
[2022-01-25] MEDS: GABAPENTIN 300 MG CAPSULE PO ×2 (09:22→12:00)
[2022-01-25 09:23] VITALS: PULSE 68
[2022-01-25] MEDS: atenoloL 50 MG TABLET PO (09:23)
[2022-01-25 10:21] LABS: Glucose Point of Care 143 mg/dl (65-105)
--- NOTE | 2022-01-25 11:14 | WPDGIPROGNO ---
Progress Note: A&P Assessment and Plan (1) Nausea and vomiting: Qualifiers: Vomiting type: unspecified Qualified Code(s): R11.2 - Nausea with vomiting, unspecified Code(s): R11.2 - Nausea with vomiting, unspecified Status: Acute Assessment and Plan: Patient with recur current nausea vomiting. Currently resolved after being given IV Reglan and IV fluid rehydration. I suspect this on the basis of diabetic gastroparesis. Plan is for good strict control of glucose levels. Will evaluate with gastric emptying scan scheduled next Thursday. Try to hold Reglan between now and then if at all possible. Because nausea vomiting have resolved would advance diet and discharge if stable today. Outpatient office follow-up is advised. (2) Insulin dependent diabetes mellitus: Status: Acute Subjective Date/time seen: 01/25/22 11:14 Patient feels much improved today. No longer with nausea vomiting. Tolerating diet without difficulty. Review of Systems Review of Systems: Review of systems noncontributory. Exam Narrative: Physical exam reveals patient be alert. Vital signs stable. HEENT exam is unremarkable. Patient is anicteric. Lungs are clear to auscultation and percussion. Heart is without murmur or extra sounds. Abdomen bowel sounds are present soft nontender with no organomegaly. Objective Data Vital Signs Vital Signs: Vital Signs - 24 hr 01/24/22 14:00 01/24/22 20:00 01/24/22 22:00 Temperature 98.4 F 96.4 F L Pulse Rate 67 67 61 Respiratory Rate 16 16 18 Blood Pressure 123/71 101/65 Pulse Oximetry 100 100 97 Oxygen Delivery Room Air 01/25/22 06:00 01/25/22 09:23 Temperature 96.3 F L Pulse Rate 88 68 Respiratory Rate 16 Blood Pressure 109/53 L Pulse Oximetry 98 Oxygen Delivery Intake/Output Intake/Output: Intake & Output 01/22/22 01/23/22 01/24/22 01/25/22 23:59 23:59 23:59 23:59 Intake Total 620 3760 2240 Output Total 1400 950 Balance 620 2360 1290 Meds/Results Medications: Active Medications Generic Name Dose Route Start Last Admin Trade Name Freq PRN Reason Stop Dose Admin Acetaminophen 650 mg 01/23/22 18:24 Acetaminophen 325 Mg Tablet PO Q4H PRN Mild Pain (1-3) or Fever Aspirin 81 mg 01/24/22 09:00 01/25/22 09:21 Aspirin 81 Mg Enteric Tablet PO 81 mg QAM DANK Administration Atenolol 50 mg 01/24/22 09:00 01/25/22 09:23 Atenolol 50 Mg Tablet PO 50 mg DAILY DANK Administration Atorvastatin Calcium 10 mg 01/24/22 09:00 01/25/22 09:21 Atorvastatin 10 Mg Tablet PO 10 mg QAM DANK Administration Dextrose 12.5 gm 01/23/22 18:24 Dextrose 50% 25 Gm/50 Ml Syringe IV PUSH PRN PRN Hypoglycemia Protocol Dextrose 12.5 gm 01/24/22 04:27 Dextrose 50% 25 Gm/50 Ml Syringe IV PUSH PRN PRN Hypoglycemia Protocol Enoxaparin Sodium 40 mg 01/24/22 09:00 01/25/22 09:21 Enoxaparin 40 Mg/0.4 Ml Syringe SUB-Q 40 mg DAILY DANK Administration Gabapentin 300 mg 01/24/22 13:00 01/25/22 09:22 Gabapentin 300 Mg Capsule PO 300 mg TID DANK Administration Glucagon 1 mg 01/24/22 04:27 Glucagon For Inj 1 Mg Vial IM PRN PRN Hypoglycemia Protocol Glucose 15 gm 01/23/22 18:24 Glucose Oral Gel 15 Gm Of Glucse In 37.5 Gm Tube PO PRN PRN Hypoglycemia Protocol Glucose 15 gm 01/24/22 04:27 Glucose Oral Gel 15 Gm Of Glucse In 37.5 Gm Tube PO PRN PRN Hypoglycemia Protocol Sodium Chloride 1,000 mls @ 125 mls/hr 01/23/22 18:25 01/25/22 09:32 Normal Saline Iv IV CONT 125 mls/hr .Q8H DANK Administration Dextrose 1,000 mls @ 100 mls/hr 01/24/22 04:27 Dextrose 5% 1,000 Ml IVPB PRN PRN Hypoglycemia Protocol Insulin Aspart 3 - 6 units 01/24/22 08:00 01/25/22 09:16 Insulin Aspart (*Bkc) 100 Units/Ml SUB-Q Not Given TIDWM DANK Protocol Lisinopril 5 mg
--- NOTE | 2022-01-25 11:17 | PM.DS ---
DS: Admitting Diagnosis Discharge Date 01/25/2022 Admitting Diagnosis Nausea and vomiting DS: Discharge Diagnosis Discharge Diagnosis (1) Nausea and vomiting: Qualifiers: Vomiting type: unspecified Qualified Code(s): R11.2 - Nausea with vomiting, unspecified Code(s): R11.2 - Nausea with vomiting, unspecified Status: Acute (2) Acute dehydration: Code(s): E86.0 - Dehydration Status: Acute (3) Acute hypokalemia: Code(s): E87.6 - Hypokalemia Status: Acute (4) Acute hyponatremia: Code(s): E87.1 - Hypo-osmolality and hyponatremia Status: Acute (5) Essential hypertension: Code(s): I10 - Essential (primary) hypertension Status: Acute (6) Insulin dependent diabetes mellitus: Status: Acute Plan Patient presents with dehydration due to intractable nausea and vomiting. The this is resulted in hypo Gloria molar hyponatremia and acute hypokalemia. She received maintenance fluids in the ER and 40 mEq potassium chloride IV. An additional 40 mEq was ordered. Hyponatremia is mild will continue IV fluids and repeat sodium levels in a.m.. Patient has insulin-dependent diabetes but her glucoses are relatively stable and near target range for hospitalized patient. The patient has not been taking her Lantus for a couple of weeks. Her glucoses is stable and controlled. Will continue to hold Lantus and will place patient on moderate sliding scale insulin with Accu-Cheks a.c. HS and hypoglycemia protocol. Will continue Reglan but will schedule IV q.6 hours will hold p.o. Reglan. Will continue Zofran as needed for nausea. The patient does have history of essential hypertension. Blood pressures are uncontrolled as the patient has not been able tolerate her home meds. Will resume the patient's home atenolol but will hold chlorthalidone due to her dehydration. Blood pressures have improved with treatment of patient's nausea and vomiting. Will add IV antihypertensives if indicated DS: Summary Hospital Course Reason for hospitalization: Nausea and vomiting Narrative: 51-year-old female with past medical history of hypertension and insulin-dependent diabetes mellitus who presented to the ER with intractable nausea vomiting.? She reports that she has been having pretty med intractable nausea and vomiting with dry heaves since she was started injectable medications for diabetes a couple of months ago.? She had an EGD in November that was normal.? She reports that she has been having associated cramping and stabbing abdominal pain.? She reports that sometimes her emesis will be of clear liquid other times it will appear bilious her green in nature but a lot of the time she has dry heaves.? She reports feeling nauseated almost constantly.? She reports having bowel movements every 2-3 days normally formed.? She has not been having any fevers or chills.? She is supposed to have a gastric emptying study to look for possible diabetic gastroparesis next Thursday.? She reports that her pain is an 8/10 in intensity at its worst is 6 at the 10 intensity currently.? She denies any relieving factors.? Her pain and symptoms are worse if she tries to eat or drink anything.? She reports that she tried marijuana a couple times to help stimulate her appetite but that was a couple of months ago.? She has not used marijuana since then. The patient reports that she checks her sugars 2 or 3 times a day in 130-170 range.? She has not been taking her Lantus for several weeks due to her symptoms.? Her hemoglobin A1c in November was 8.5. Hospital Course: 51-year-old female with history of diabetes presented with complaint abdominal pain nausea or vomiting poor appetite patient has lost close to 40 lb,? patient seen by GI suspect patient may have diabetes gastroparesis and will need gastric emptying study meanwhile patient being treated with Reglan 10 mg q.6, patient continued to complain of abdominal pain an
[2022-01-25] MEDS: POTASSIUM CHLORIDE 20 MEQ TABLET 40 MEQ PO (11:59)
[2022-01-25 13:26] LABS: Glucose Point of Care 159 mg/dl (65-105)
== END 2022-01-25 15:10 | disposition home or self-care (01) ==
LOC: ANHED 18:24 → ANH3MED 21:29 → ANH3MEDSUR 01-27 15:13
PROVIDERS: Internal Medicine; Internal Medicine Gastroenterology; Admitting Provider Internal Medicine; Emergency Provider Family Medicine; PCP Registered Nurse; Visit Provider Family Medicine
DX: R11.2 Nausea with vomiting, unspecified (principal); E86.0 Dehydration; E87.6 Hypokalemia; E87.1 Hypo-osmolality and hyponatremia; I11.0 Hypertensive heart disease with heart failure; I50.30 Unspecified diastolic (congestive) heart failure; E78.5 Hyperlipidemia, unspecified; R10.9 Unspecified abdominal pain; E11.43 Type 2 diabetes mellitus with diabetic autonomic (poly)neuropathy; K31.84 Gastroparesis; K29.70 Gastritis, unspecified, without bleeding; R63.0 Anorexia; R63.4 Abnormal weight loss; Z68.24 Body mass index [BMI] 24.0-24.9, adult; Z20.822 Contact with and (suspected) exposure to COVID-19; F12.90 Cannabis use, unspecified, uncomplicated; F41.9 Anxiety disorder, unspecified; K57.30 Diverticulosis of large intestine without perforation or abscess without bleeding; Z87.891 Personal history of nicotine dependence; Z79.82 Long term (current) use of aspirin; Z79.84 Long term (current) use of oral hypoglycemic drugs; Z79.891 Long term (current) use of opiate analgesic; Z79.4 Long term (current) use of insulin; Z79.899 Other long term (current) drug therapy; Z83.3 Family history of diabetes mellitus; Z82.49 Family history of ischemic heart disease and other diseases of the circulatory system
CPT/HCPCS: 36415; 74177; 80048; 80053; 81001; 82948; 83690; 83735; 85025; 85027; 87086; 87088; 87636; 96361; 96365; 96367; 96372; 96374; 96375; 96376; 99285; A9270; C9113; G0378; J1650; J2270; J2405; J2765; J3475; J3480; J7030; J7040; Q9967

== ENCOUNTER 2022-01-29 09:32 | Outpatient (CLI) | payer OTHER, SELFPAY ==
--- NOTE | ~2022-01-29 | NM_ITS ---
History: Nausea and vomiting. Nuclear Medicine Gastric Emptying Assessment: The patient was orally administered 4 oz. cooked egg whites, 2 pieces white bread toast, 30 gm. jam o r jelly and 4 oz. water to be consumed within 10 minutes. 1.0 mCi. Tc-99m was cooked into the egg wh ites using microwave oven. Patient was placed supine and using a dual head gamma camera 2 minute planar anterior and posterior i mages were acquired at 0.5 , 1 ,2 , 3, and 4 hrs. or until = or > than 90% gastric emptying was achie aníbal. Regions of interest were drawn about the stomach and using the geometric mean method and decay c orrection, percent gastric retention was calculated. PERCENT GASTRIC RETENTION : 1 hr. 70% 2 hr. 51% 4 hr. 28% Impression: Mild increased retention at the 4 hour aleksandra, however other values are within normal limit s. Consider mild delayed gastric emptying. Normal Limits for Gastric Retention Time point Lower limit (a lower value Upper limit (a suggests abnormally rapid greater value gastric emptying) suggests abnormally delayed gastric emptying) 0.5 hr. 70% 1 hr. 30% 90% 2 hr. 60% 3 hr. 30% 4 hr. 10% Data are from Am J Gastroenterology. 2007;102:-11. Reviewed, dictated and finalized at location [] TICE [employer]DER Impression: Mild increased retention at the 4 hour aleksandra, however other values a re within normal limits. Consider mild delayed gastric emptying. Normal Limits for Gastric Retention Time point Lower limit (a lower value Upper limit (a suggests abnormally rapid greater value gastric emptying) suggests abnorm ally de layed gastric e mptying) 0.5 hr. 70% 1 hr. 30% 90% 2 hr. 60% 3 hr. 30% 4 hr. 10% Data are from Am J Gastroenterology. 2007;102:-11.
== END 2022-01-29 09:33 | disposition home or self-care (01) ==
LOC: ANHIMG 09:35
PROVIDERS: PCP Registered Nurse; Visit Provider Nurse Practitioner
DX: R11.2 Nausea with vomiting, unspecified (principal); R10.9 Unspecified abdominal pain
CPT/HCPCS: 78264; A9541

== ENCOUNTER 2022-05-02 00:43 | Day surgery (SDC) | payer OTHER, SELFPAY ==
[2022-04-23 13:15] VITALS: BMI 27.5
[2022-05-02 07:56] VITALS: BP 134/72; PULSE 69; RESP 16; TEMP 36.1; O2SAT 100
--- NOTE | 2022-05-02 07:56 | PM.HPGS ---
History of Present Illness History of Present Illness Consent: Risks, benefits, and alternatives have been discussed and questions answered. Patient agrees to proceed with procedure. Chief complaint: neoplasm screening Narrative: Vangie King is a 52 year old female Presents for screening colonoscopy. Patient reports that her current weight appetite and bowel movements are normal. Patient denies abdominal pain. She has had no bleeding. Family history noncontributory Review of Systems Review of Systems: review of systems noncontributory. [facility]LY [facility] Past Medical History Medical History Diabetes mellitus With hemoglobin A1c of 8.20 December 2021 Diastolic dysfunction without heart failure Echocardiogram 11/19/2021: Greater than 70% EF grade 1 diastolic dysfunction moderate pericardial effusion Essential hypertension Hyperlipidemia Nausea and vomiting Surgical History Surgical History H/O section H/O eye surgery H/O oral surgery History of surgery on lower extremity right leg Normal esophagogastroduodenoscopy (EGD) (11/20/21) Family History Family History Sibling Diabetes mellitus Lung cancer Father Acute myocardial infarction Mother Acute myocardial infarction Social History Social History Social History: The patient stated that she has quit smoking. She denies alcohol. She lives with her of 12 years. 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 However, she has been out of work for the last couple months due to her symptoms. Code status: Full code Surrogate decision maker: Smoking packs per day: 1 Smoking cigarettes per day: 20.0 Years smoked: 1 Smoking pack-years: 1.00 Smoking status: Light tobacco smoker Tobacco type: cigarettes Smoking end date: 02/16/21 Alcohol intake: former Drinks per week: 2 Substance use: never Substance use type: does not use Other substance usage details: She tried marijuana a few times. It did not help her appetite. Lack of Transportation: No Lack of Food: Never True Current Housing: I Have Housing Concerned About Future Housing: No Difficulty Paying Gas/Electric Bills: No Difficulty Paying for Meds: No Currently Unemployed: No Education: Associate Degree Difficulty w/ Childcare or Family Care: No Living arrangements: with family Occupation/Education: occupation Gender identity (if verbalized by the patient): Female Spiritual care concerns: No Meds Home Medications and Allergies Home Medications Medication Instructions Recorded Confirmed Type aspirin 81 mg tablet,delayed 81 mg PO QAM #30 tabs 09/07/19 04/23/22 Rx release blood sugar diagnostic (Blood #50 ea 09/07/19 04/23/22 Rx Glucose Test strips) blood-glucose meter #1 ea 09/07/19 04/23/22 Rx lisinopril 5 mg tablet 5 mg PO QAM #30 tabs 09/07/19 04/23/22 Rx atenolol 50 mg-chlorthalidone 25 1 tablet PO QAM 09/25/21 04/23/22 History mg tablet metformin 500 mg tablet 500 mg PO BID 12/24/21 04/23/22 History insulin glargine 100 unit/mL (3 24 unit (0.24 mL) subcut HS #15 mL 12/26/21 04/23/22 Rx mL) subcutaneous pen (Lantus Solostar U-100 Insulin) atorvastatin 10 mg tablet 10 mg PO QAM 01/23/22 04/23/22 History metoclopramide HCl 10 mg tablet 10 mg PO Q8H 01/23/22 04/23/22 History (Reglan) sodium,potassium,mag sulfates 17.5 See Rx Instructions PO .COMPLEX 04/09/22 04/23/22 Rx gram-3.13 gram-1.6 gram oral soln #354 mL (Suprep Bowel Prep Kit) Allergies Allergy/AdvReac Type Severity Reaction Status Date / Time quinine Allergy Rash Verified 05/02/22 07:55 Exam Narrative: Physical exam reveals p
--- NOTE | 2022-05-02 07:57 | P.PNAN_ITS ---
Anes - Initial Pre Proc Eval Procedure: Operation Date: 05/02/22 09:00 Proposed Procedures p Screening Colonoscopy - You Weems MD Date/Time: 05/02/22 07:57 Surgeon: You Weems MD Pre Op Diagnosis: neoplasm screening Patient Data Age: 52 Gender: F Height: 1.57 m Weight: 68.3 kg Allergies Allergy/AdvReac Type Severity Reaction Status Date / Time quinine Allergy Rash Verified 05/02/22 07:55 Home Medications Medication Instructions Recorded Confirmed Type aspirin 81 mg tablet,delayed 81 mg PO QAM #30 tabs 09/07/19 04/23/22 Rx release blood sugar diagnostic (Blood #50 ea 09/07/19 04/23/22 Rx Glucose Test strips) blood-glucose meter #1 ea 09/07/19 04/23/22 Rx lisinopril 5 mg tablet 5 mg PO QAM #30 tabs 09/07/19 04/23/22 Rx atenolol 50 mg-chlorthalidone 25 1 tablet PO QAM 09/25/21 04/23/22 History mg tablet metformin 500 mg tablet 500 mg PO BID 12/24/21 04/23/22 History insulin glargine 100 unit/mL (3 24 unit (0.24 mL) subcut HS #15 mL 12/26/21 04/23/22 Rx mL) subcutaneous pen (Lantus Solostar U-100 Insulin) atorvastatin 10 mg tablet 10 mg PO QAM 01/23/22 04/23/22 History metoclopramide HCl 10 mg tablet 10 mg PO Q8H 01/23/22 04/23/22 History (Reglan) sodium,potassium,mag sulfates 17.5 See Rx Instructions PO .COMPLEX 04/09/22 04/23/22 Rx gram-3.13 gram-1.6 gram oral soln #354 mL (Suprep Bowel Prep Kit) Patient hx anesthesia problems: none Family hx anesthesia problems: none Results Review: All pre-operative results and documents have been reviewed as part of the pre- operative evaluation. [facility] Past Medical History Medical History Diabetes mellitus With hemoglobin A1c of 8.20 December 2021 Diastolic dysfunction without heart failure Echocardiogram 11/19/2021: Greater than 70% EF grade 1 diastolic dysfunction moderate pericardial effusion Essential hypertension Hyperlipidemia Nausea and vomiting Surgical History Surgical History H/O section H/O eye surgery H/O oral surgery History of surgery on lower extremity right leg Normal esophagogastroduodenoscopy (EGD) (11/20/21) Family History Family History Sibling Diabetes mellitus Lung cancer Father Acute myocardial infarction Mother Acute myocardial infarction Social History Social History Social History: The patient stated that she has quit smoking. She denies alcohol. She lives with her of 12 years. 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 However, she has been out of work for the last couple months due to her symptoms. Code status: Full code Surrogate decision maker: Smoking packs per day: 1 Smoking cigarettes per day: 20.0 Years smoked: 1 Smoking pack-years: 1.00 Smoking status: Light tobacco smoker Tobacco type: cigarettes Smoking end date: 02/16/21 Alcohol intake: former Drinks per week: 2 Substance use: never Substance use type: does not use Other substance usage details: She tried m
[2022-05-02 07:59] LABS: Glucose Point of Care 206 mg/dl (65-105)
[2022-05-02] MEDS: LACTATED RINGERS 1,000 ML 150 ML IV CONT (07:59)
[2022-05-02] MEDS: SIMETHICONE ORAL SUSPENSION 20 MG/0.3 ML 30 ML BOTTLE 0.6 ML IRRIGATION (08:50)
[2022-05-02 09:04] VITALS: BP 87/53; PULSE 64; RESP 25; TEMP 36.1; O2SAT 100
[2022-05-02 09:14] VITALS: BP 104/57; PULSE 63; RESP 14; TEMP 36.1; O2SAT 100
--- NOTE | 2022-05-02 09:17 | SUR.PHASEII ---
Blood glucose checked per pt. glucose monitor per pt. request. Result was 183.
[2022-05-02 09:23] VITALS: BP 112/62; PULSE 62; RESP 17; TEMP 36.1; O2SAT 100
== END 2022-05-02 09:27 | disposition home or self-care (01) ==
PROVIDERS: PCP Registered Nurse; Visit Provider Internal Medicine Gastroenterology
PROC: 0DJD8ZZ Inspection of Lower Intestinal Tract, Via Natural or Artificial Opening Endoscopic (ICD-10-PCS; CPT 45378; principal; 2022-05-02 09:00)
DX: Z12.11 Encounter for screening for malignant neoplasm of colon (principal); K57.30 Diverticulosis of large intestine without perforation or abscess without bleeding; E11.9 Type 2 diabetes mellitus without complications; I11.9 Hypertensive heart disease without heart failure; E78.5 Hyperlipidemia, unspecified; Z87.891 Personal history of nicotine dependence; Z79.82 Long term (current) use of aspirin; Z79.84 Long term (current) use of oral hypoglycemic drugs; Z79.4 Long term (current) use of insulin
CPT/HCPCS: 45378; 82948; J2370; J2704; J7120